=== PATIENT | female | born 1995 ===

== ENCOUNTER 2022-09-26 14:30 | Outpatient (CLI) | payer OTHER, SELFPAY | END 2022-09-26 14:31 | disposition home or self-care (01) | LOC: NFLDREF 14:31 | PROVIDERS: PCP Obstetrics & Gynecology; Visit Provider Obstetrics & Gynecology | DX: R30.0 Dysuria (principal); E11.9 Type 2 diabetes mellitus without complications | CPT/HCPCS: 87086; 87210 ==

== ENCOUNTER 2022-10-10 11:35 | Outpatient (CLI) | payer OTHER, SELFPAY | END 2022-10-10 11:36 | disposition home or self-care (01) | LOC: NFLDREF 10-12 06:28 | PROVIDERS: PCP Obstetrics & Gynecology; Referring Provider Obstetrics & Gynecology; Visit Provider Obstetrics & Gynecology | DX: O24.112 Pre-existing type 2 diabetes mellitus, in pregnancy, second trimester (principal); R79.89 Other specified abnormal findings of blood chemistry; Z3A.15 15 weeks gestation of pregnancy | CPT/HCPCS: 82565; 82570; 84156; 84450; 84460; 84520 ==

== ENCOUNTER 2023-01-16 15:47 | Outpatient (CLI) | payer OTHER, SELFPAY | END 2023-01-16 15:48 | disposition home or self-care (01) | PROVIDERS: PCP Obstetrics & Gynecology; Referring Provider Obstetrics & Gynecology; Visit Provider Obstetrics & Gynecology | DX: O24.113 Pre-existing type 2 diabetes mellitus, in pregnancy, third trimester (principal); Z3A.29 29 weeks gestation of pregnancy | CPT/HCPCS: 86592 ==

== ENCOUNTER 2023-01-29 14:00 | Outpatient (CLI) | payer OTHER, SELFPAY ==
--- NOTE | 2023-01-29 14:00 | CRLHL7_ITS ---
For Patients: As a result of the Century Cures Act, medical imaging exams and procedure reports are released immediately into your electronic medical record. You may view this report before your referring provider. If you have questions, please contact your health care provider. INDICATION: pre-existing type 2 diabetes TECHNIQUE: Real time forbes scale imaging of the fetus was performed. COMPARISON: None FINDINGS: Sonographic imaging demonstrates a single living intrauterine gestation. Fetus demonstrates a regular cardiac rate of 167 beats per minute. Fetus has a vertex position. The placenta lies posterior. Amniotic fluid volume appears normal and there is a single deepest pocket of 5.2 cm. The estimated weight is 1947gm which lies at the 73rd %. BPD 63rd percentile. HC 62nd percentile. AC 97th percentile. FL 4th percentile. The fetus was active and demonstrated normal breathing movements. There was normal flexion and extension of the trunk and extremities. IMPRESSION: Normal biophysical profile score 8/8. Sonographic gestational age 32 weeks 1 day and sonographic due date 03/25/2023. Sonographic age is 6 days ahead of the clinical age. Estimated weight 73rd percentile. Abdominal circumference 97th percentile. Dictated by Sloan Gonsalves MD @ 01/30/2023 5:01:52 PM (Electronically Signed)
== END 2023-01-29 14:01 | disposition home or self-care (01) ==
LOC: US 14:01
PROVIDERS: Visit Provider Obstetrics & Gynecology
DX: O24.113 Pre-existing type 2 diabetes mellitus, in pregnancy, third trimester (principal); Z3A.31 31 weeks gestation of pregnancy
CPT/HCPCS: 76816; 76819

== ENCOUNTER 2023-02-13 14:46 | Outpatient (CLI) | payer OTHER, SELFPAY ==
--- NOTE | 2023-02-13 15:00 | CRLHL7_ITS ---
For Patients: As a result of the Century Cures Act, medical imaging exams and procedure reports are released immediately into your electronic medical record. You may view this report before your referring provider. If you have questions, please contact your health care provider. INDICATION: PRE-EXISTING TYPE 2 DIABETES MELLITUS COMPARISON: 01/29/2023 TECHNIQUE: Real time forbes scale imaging of the fetus was performed. Without non-stress testing. FINDINGS: Sonographic imaging demonstrates a single living intrauterine gestation. Fetus demonstrates a regular cardiac rate of 166 beats per minute. Fetus has a vertex position. The amniotic fluid volume appears normal and there is a single deepest pocket measurement of 5.5 cm. The fetus was active and demonstrated normal breathing movements. There was normal flexion and extension of the trunk and extremities. IMPRESSION: Normal biophysical profile score of 8 out of 8. Dictated by Sloan Gonsalves MD @ 02/14/2023 9:06:44 AM (Electronically Signed)
== END 2023-02-13 14:47 | disposition home or self-care (01) ==
LOC: US 14:47
PROVIDERS: Visit Provider Obstetrics & Gynecology
DX: O24.113 Pre-existing type 2 diabetes mellitus, in pregnancy, third trimester (principal)
CPT/HCPCS: 76819

== ENCOUNTER 2023-02-22 14:44 | Outpatient (CLI) | payer OTHER, SELFPAY ==
--- NOTE | 2023-02-22 15:00 | CRLHL7_ITS ---
For Patients: As a result of the Cures Act, medical imaging exams and procedure reports are released immediately into your electronic medical record. You may view this report before your referring provider. If you have questions, please contact your health care provider. INDICATION: Pre-existing type 2 diabetes. COMPARISON: OB ultrasound 02/13/2023. TECHNIQUE: Ultrasound OB pelvis with real time forbes scale imaging and color Doppler analysis. FINDINGS: Sonographic imaging demonstrates a single living intrauterine gestation. The fetus has a regular cardiac rate of 139 beats per minute. The fetus has a cephalic orientation. The placenta lies posterior/fundal without evidence of placenta previa. Amniotic fluid volume appears normal. Cervix not visualized. The composite ultrasound gestational age is calculated at 35 weeks 3 days with an estimated sonographic due date of 03/26/2023. The estimated weight is 2899 grams which lies at the 87th percentile. The following biometric measurements were obtained: Biparietal diameter: 8.72 cm (35 weeks 1 day) (66th percentile) Head circumference: 32.11 cm (36 weeks 2 days) (54th percentile) Abdominal circumference: 34.67 cm (38 weeks 4 days) (greater than 97th percentile) Femur length: 6.04 cm (31 weeks 3 days) (less than 3rd percentile) The HC/AC ratio measures: 0.93 (range 0.93-1.10) BIOPHYSICAL PROFILE: Single deepest pocket measures 5.7 cm (2/2). The fetus was active (2/2). There was normal flexion and extension of the trunk and extremities (2/2). The fetus demonstrated normal breathing movements (2/2). IMPRESSION: 1. Single living intrauterine gestation in cephalic position with heart rate 139 beats per minute. 2. Ultrasound gestational age 35 weeks 3 days with sonographic due date 03/26/2023. The clinical gestational age is 34 weeks 5 days. 3. Estimated weight lies at the 87th percentile. Abdominal circumference is greater than 97th percentile. 4. Normal biophysical profile score 8 out of 8. Dictated by Bernadette Miranda MD @ 02/22/2023 11:13:12 PM (Electronically Signed)
== END 2023-02-22 14:45 | disposition home or self-care (01) ==
PROVIDERS: Visit Provider Obstetrics & Gynecology
DX: O24.113 Pre-existing type 2 diabetes mellitus, in pregnancy, third trimester (principal); Z3A.35 35 weeks gestation of pregnancy
CPT/HCPCS: 76816; 76819

== ENCOUNTER 2023-02-27 15:52 | Outpatient (CLI) | payer OTHER, SELFPAY ==
--- NOTE | 2023-02-27 16:00 | CRLHL7_ITS ---
For Patients: As a result of the Century Cures Act, medical imaging exams and procedure reports are released immediately into your electronic medical record. You may view this report before your referring provider. If you have questions, please contact your health care provider. INDICATION: TYPE 2 DIABETES COMPARISON: 02/22/2023 TECHNIQUE: Real time forbes scale imaging of the fetus was performed. Without non-stress testing. FINDINGS: Sonographic imaging demonstrates a single living intrauterine gestation. Fetus demonstrates a regular cardiac rate of 152 beats per minute. Fetus has a vertex position. The amniotic fluid volume appears normal and there is a single deepest pocket measurement of 5.0 cm. The fetus was active and demonstrated normal breathing movements. There was normal flexion and extension of the trunk and extremities. IMPRESSION: Normal biophysical profile score of 8 out of 8. Dictated by Sloan Gonsalves MD @ 02/28/2023 8:42:19 AM (Electronically Signed)
== END 2023-02-27 15:53 | disposition home or self-care (01) ==
LOC: US 15:52
PROVIDERS: Visit Provider Obstetrics & Gynecology
DX: O24.419 Gestational diabetes mellitus in pregnancy, unspecified control (principal)
CPT/HCPCS: 76819

== ENCOUNTER 2023-03-08 13:55 | Outpatient (CLI) | payer OTHER, SELFPAY ==
--- NOTE | 2023-03-08 14:00 | CRLHL7_ITS ---
For Patients: As a result of the Century Cures Act, medical imaging exams and procedure reports are released immediately into your electronic medical record. You may view this report before your referring provider. If you have questions, please contact your health care provider. INDICATION: pre-existing type 2 diabetes TECHNIQUE: Real time forbes scale imaging of the fetus was performed. COMPARISON: 02/22/2023, 02/27/2023 FINDINGS: Sonographic imaging demonstrates a single living intrauterine gestation. Fetus demonstrates a regular cardiac rate of 125 beats per minute. Fetus has a vertex position. The placenta lies fundal posterior. Amniotic fluid volume appears normal and there is a single deepest pocket of 4.7 cm. The estimated weight is 3186gm which lies at the 72nd %. On the prior OB ultrasound dated 02/22/2023 the estimated weight was at the 87th percentile. BPD 54th percentile. HC 25th percentile. AC greater than 97th percentile. FL less than 3rd percentile. The fetus was active and demonstrated normal breathing movements. There was normal flexion and extension of the trunk and extremities. IMPRESSION: Normal biophysical profile score 8/8. Sonographic gestational age 36 weeks 4 days and sonographic due date 04/01/2023. Good correlation with dates. Normal interval growth. Estimated weight 72nd percentile. Abdominal circumference greater than 97th percentile. Femur length less than 3rd percentile. This was also present on the prior study. Dictated by Sloan Gonsalves MD @ 03/09/2023 9:27:30 AM (Electronically Signed)
== END 2023-03-08 13:56 | disposition home or self-care (01) ==
LOC: US 13:55
PROVIDERS: Visit Provider Obstetrics & Gynecology
DX: O24.419 Gestational diabetes mellitus in pregnancy, unspecified control (principal); Z3A.36 36 weeks gestation of pregnancy
CPT/HCPCS: 76816; 76819; 87081; 87653

== ENCOUNTER 2023-04-08 15:45 | Emergency (ER) | payer OTHER, SELFPAY ==
[2023-04-08 15:56] VITALS: BP 107/68; PULSE 74; RESP 18; TEMP 36.6; O2SAT 100; BMI 34.2
[2023-04-08 16:34] LABS: Basophils Absolute Auto 0.05 K/uL (0.00-0.30); Basophils Percent Auto 0.7 % (0.0-3.0); Eosinophils Absolute Auto 0.27 K/uL (0.00-0.50); Hematocrit 39.4 % (33.0-51.0); Hemoglobin* 12.2 gm/dL (12.0-16.0); Immature Granulocytes Abs Auto 0.01 K/uL (0.00-0.30); Immature Granulocytes Pct Auto 0.1 %; Lymphocytes Absolute Auto 1.91 K/uL (0.90-2.90); Lymphocytes Percent Auto 28.6 % (20-44); Mean Corpuscular HGB Conc 31 gm/dL (32-36); Mean Corpuscular Hemoglobin 22 pg (26-34); Mean Corpuscular Volume 72 fL (80-100); Neutrophils Absolute Auto 4.17 K/uL (1.7-7.0); Neutrophils Percent Auto 62.6 % (42.0-72.0); Platelet Count* 314 K/uL (140-440); RDW Coefficient of Variation % 16.3 % (11.5-15.5); Red Blood Count 5.45 m/uL (4.00-5.20); White Blood Count* 6.68 K/uL (4.50-11.00)
[2023-04-08 16:37] LABS: Slide Review Reflex No
--- NOTE | 2023-04-08 16:41 | ED.GENADULT ---
HPI - General Adult General Date Seen: 04/08/23 Chief complaint: Post OB/Post- Complication Stated complaint: Discharge/redness at site(2 wks ago) Time Seen by Provider: 04/08/23 16:00 Source: patient Mode of arrival: ambulatory Limitations: no limitations History of Present Illness HPI narrative: Patient is a 27-year-old female presenting to the emergency department for concerns for her incision. She states she has 2 weeks ago at [facility]. States her doctors all usually in [place] though. She states she noted today she had a small amount of discharge coming from the surgical site. She was concerned so came to the emergency department to be evaluated. She states she has had some chills and cold sweats but denies any fevers. Has not had any abdominal pain or nausea. Has been eating and drinking without issues. Denies dysuria, weakness, numbness, chest pain, shortness of breath, vaginal pain. Does state there is some mild vaginal bleeding. No other concerns at this time. Related Data Home Medications Medication Instructions Recorded Confirmed cholecalciferol (vitamin D3) 25 25 mcg PO QDAY 09/26/22 03/08/23 mcg (1,000 unit) capsule prenat.vits,livan,[id number] 1 tab PO QDAY 09/26/22 03/08/23 insulin aspart U-100 100 unit/mL 0.25 unit subcut TID 10/30/22 03/08/23 subcutaneous solution (Novolog U-100 Insulin aspart) insulin glargine 100 unit/mL 30 unit subcut QPM 10/30/22 03/08/23 subcutaneous solution (Lantus U-100 Insulin) aspirin 81 mg tablet,delayed 81 mg PO QDAY 12/28/22 03/08/23 release Previous Rx's Medication Instructions Recorded cephalexin 500 mg capsule 500 mg PO QID #20 caps 04/08/23 Allergies Allergy/AdvReac Type Severity Reaction Status Date / Time No Known Drug Allergies Allergy Verified 03/08/23 14:50 Review of Systems Status of ROS: Reports: 10 or more systems reviewed and unremarkable except as noted in History and below [facility] Medical History (Updated 04/08/23 @ 17:39 by Fede Bravo DO) Type 2 diabetes mellitus affecting in third trimester, antepartum ?O24.113 - Pre-existing type 2 diabetes mellitus, in , third trimester (ICD-10) Carpal tunnel syndrome (04/07/21) ?G56.00 - Carpal tunnel syndrome, unspecified upper limb (ICD-10) History of depression ?Z86.59 - Personal history of other mental and behavioral disorders (ICD-10) History of anxiety ?Z86.59 - Personal history of other mental and behavioral disorders (ICD-10) History of abnormal cervical Pap smear (04/28/20) ?Z87.42 - Personal history of other diseases of the female genital tract (ICD-10) Mild asthma ?J45.909 - Unspecified asthma, uncomplicated (ICD-10) Oligohydramnios (~04/2021) ?O41.00X0 - Oligohydramnios, unspecified trimester, not applicable or unspecified (ICD-10) Surgical History (Updated 09/25/22 @ 08:32 by Vivienne Bah) History of wisdom tooth extraction ?K08.409 - Partial loss of teeth, unspecified cause, unspecified class (ICD-10) Status post primary low transverse section (05/17/21) ?Z98.891 - History of uterine scar from previous surgery (ICD-10) Social History Smoking Status: Never smoker Little interest or pleasure in doing things: not at all Feeling down, depressed, or hopeless: not at all Exam Narrative: Exam Narrative: Const: Well-nourished, Well-developed, in no distress Eyes: PERRL, no conjunctival injection, and symmetrical lids ENMT: Atraumatic external nose and ears. Moist mucous membranes. Neck: Symmetric, trachea midline, No thyromegaly. CVS: RRR, No murmurs or gallops. Peripheral pulses 2+ and equal in all extremities RESP: Unlabored respiratory effort. Clear to auscultation bilaterally. GI: Nontender/Nondistended, No rebound or guarding. MSK:Extremities w/o deformity, Normal Active ROM Skin: Warm, Dry. Healing surgical site with is some noted the openings vault couple mm in size each addendum mid section of the scar an on the right edge. Neuro: Normal Muscle tone, No focal neurological deficits. Psych: Awake, Alert, & Oriented x3. Appropriate mood and affect. Const: Vital Signs, click to edit/add: Vital Signs - 24 hr 04/08/23 15:56 Temperature 97.8 F Pulse Rate [Pulse Oximeter] 74 Respiratory Rate 18 Blood Pressure [Ri ght Upper Arm] 107/68 Pulse Oximetry 100 Course Vital Signs Vital signs: Initial Vital Signs Temperature 97.8 F 04/08/23 15:56 Temperature Source Temporal Artery Scan 04/08/23 15:56 Pulse Rate 74 04/08/23 15:56 Respiratory Rate 18 04/08/23 15:56 Blood Pressure 107/68 04/08/23 15:56 Blood Pressure Mean 81 04/08/23 15:56 Pulse Oximetry 100 04/08/23 15:56 Vital Signs Temperature 97.8 F 04/08/23 15:56 Pulse Rate 74 04/08/23 15:56 Respiratory Rate 18 04/08/23 15:56 Blood Pressure 107/68 04/08/23 15:56 Pulse Oximetry 100 04/08/23 15:56 Temperature 97.8 F 04/08/23 15:56 Pulse Rate 74 04/08/23 15:56 Respiratory Rate 18 04/08/23 15:56 Blood Pressure 107/68 04/08/23 15:56 Pulse Oximetry 100 04/08/23 15:56 Medical Decision Making MDM Narrative Medical decision making narrative: Patient is a 27-year-old female presented emergency department for a wound check. She did state she has some night sweats but no other complaints at this time. I specifically asked about abdominal pain, nausea, dysuria. She denied all of this. She states she wants an OB to come in to a wound check on her. She has not had her 2 week wound check appointment yet. I ordered a CBC and BMP in the returned showing no concerning abnormalities. She had only a very small opening in the wound with very minimal drainage. I do not see any drainage right now. I did speak to Dr. Sorenson and explained the situation. I stated they are small wounds and there is no obvious signs of infection occurring right now. She states she would come and evaluate the wound if I wanted her to the she states otherwise the patient needs to have her 2 week outpatient wound check appointment this week. This time and not believe this any clear signs of infection and I am not was necessary to have her come in to evaluate the wound. Patient is otherwise doing well with stable vital signs. After this I went disorder the patient again explained her to follow up outpatient. This point she started saying she is having abdominal pains throughout the incision sites and dysuria. We did do urinalysis. While urinalysis pending patient and her family left and she told the nursing staff that I can call her with the results. Results came back showing possibly a UTI. I did send Keflex to her pharmacy and try to call the patient but her number on file is incorrect and her did not answer the phone. I was later able to get a hold of the patient and informed her of her UTI prescription Lab Data Labs: Lab Results 04/08/23 04/08/23 Range/Units 16:27 16:51 WBC 6.68 (4.50-11.00) K/uL RBC 5.45 H (4.00-5.20) m/uL Hgb 12.2 (12.0-16.0) gm/dL Hct 39.4 (33.0-51.0) % MCV 72 L (80-100) fL MCH 22 L (26-34) pg MCHC 31 L (32-36) gm/dL RDW Coeff of Rusty 16.3 H (11.5-15.5) % Plt Count 314 (140-440) K/uL Neut % (Auto) 62.6 (42.0-72.0) % Lymph % (Auto) 28.6 (20-44) % Valley % (Auto) 4.0 (0.0-11.0) % Eos % (Auto) 4.0 (0.0-7.0) % Baso % (Auto) 0.7 (0.0-3.0) % Neut # (Auto) 4.17 (1.7-7.0) K/uL Lymph # (Auto) 1.91 (0.90-2.90) K/uL Valley # (Auto) 0.30 (0.00-0.90) K/UL Eos # (Auto) 0.27 (0.00-0.50) K/uL Baso # (Auto) 0.05 (0.00-0.30) K/uL Abs Immat Gran (auto) 0.01 (0.00-0.30) K/uL Imm/Tot Granulo (auto) 0.1 % Sodium 138 (135-149) mmol/L Potassium 3.7 (3.6-5.1) mmol/L Chloride 108 (96-114) mmol/L Carbon Dioxide 19 L (20-32) mmol/L Anion Gap 11 (7-15) mEq/L BUN 19 (5-24) mg/dL Creatinine 0.8 (0.5-1.5) mg/dL Estimated Creat Clear 74.53 Estimated GFR 102 ml/min Glucose 112 (60-115) mg/dL Calcium 9.3 (8.4-10.6) mg/dL Urine Color Yellow (Yellow) Urine Appearance Clear (Clear) Urine pH 5.5 (5.0-8.5) Ur Specific [place] 1.025 (1.000-1.030) Urine Protein Negative (Negative) Urine Glucose (UA) Negative (Negative) Urine Ketones Negative (Negative) Urine Blood 3+ A (Negative) Urine Nitrite Negative (Negative) Urine Bilirubin Negative (Negative) Urine Urobilinogen 0.2 (0.2-1.0) Ur Leukocyte Esterase 1+ A (Negative) Urine RBC 5-10 A (0-2) Urine WBC 5-10 A (0-5) Ur Squamous Epith Cells None (None-Few) Urine Bacteria None (None) Discharge Plan Discharge Clinical Impression: Visit for wound check UTI (urinary tract infection) Qualifiers: Urinary tract infection type: site unspecified Hematuria presence: without hematuria Qualified Code(s): N39.0 - Urinary tract infection, site not specified Patient Disposition: Home, Self-Care Condition: Stable Instructions: Urinary Tract Infection in Women (DC) Additional Instructions: Return for new or worsening symptoms. Prescriptions: New cephalexin 500 mg capsule 500 mg PO QID Qty: 20 0RF No Action prenat.vits,livan,oit-yrzt-pgboy Tablet 1 tab PO QDAY cholecalciferol (vitamin D3) 25 mcg (1,000 unit) capsule 25 mcg PO QDAY insulin aspart U-100 [Novolog U-100 Insulin aspart] 100 unit/mL solution 0.25 unit subcut TID Patient Comments: patient reports taking 20-25 units at meals. insulin glargine [Lantus U-100 Insulin] 100 unit/mL solution 30 unit subcut QPM Patient Comments: patient reports 25-30 units at HS. aspirin 81 mg tablet,delayed release (DR/EC) 81 mg PO QDAY Follow Up/Referrals: Provider,Not a Local [Primary Care Provider] - Stand Alone Forms: [employer] Info Instructions
[2023-04-08 17:00] LABS: Chloride* 108 mmol/L (96-114); Potassium* 3.7 mmol/L (3.6-5.1); Sodium* 138 mmol/L (135-149)
[2023-04-08 17:03] LABS: Anion Gap 11 mEq/L (7-15); Blood Urea Nitrogen* 19 mg/dL (5-24); Carbon Dioxide* 19 mmol/L (20-32); Creatinine* 0.8 mg/dL (0.5-1.5); Est. Creatinine Clearance* 74.53; Estimated Glomerular Filt Rate 102 ml/min
[2023-04-08 17:04] LABS: Calcium* 9.3 mg/dL (8.4-10.6); Glucose* 112 mg/dL (60-115)
[2023-04-08 17:13] LABS: Appearance Urine Clear (Clear); Bilirubin Urine Negative (Negative); Blood Urine 3+ (Negative); Color Urine Yellow (Yellow); Glucose Urine Negative (Negative); Ketones Urine Negative (Negative); Leukocyte Esterase Urine 1+ (Negative); Nitrite Urine Negative (Negative); Protein Urine Negative (Negative); Specific Gravity Urine 1.025 (1.000-1.030); Urobilinogen Urine 0.2 (0.2-1.0); pH Urine 5.5 (5.0-8.5)
--- NOTE | 2023-04-08 17:28 | ED.NURSE ---
Pt was seen today for concerns of a possible infection at her site. was completed 2 weeks ago per patient. Bloodwork was ordered which the provider discussed with the patient. Pt requested several times that OB come and take a look at the incision. Conversation with patient regarding what services are provided in the ED for a concern for infection of the skin and that OB was not necessarily warranted. Per provider pt now stating that she is having concerns of a UTI and reporting symptoms. Urine was collected and sent to lab. Patient advised that the soonest this test would result would be 15 minutes. Patient and family walked out of ER and into lobby to leave. Advised patient that she had not yet received discharge paperwork and asked if she wanted to sign out AMA. Pt states that she would like the doctor to call her with results and send a prescription to her preferred pharmacy. This RN had a discussion with the provider and determined that he would call her with results since she needed to leave. I advised patient of this plan and also advised her that she could call here in 45 minutes if she had not received a call with results. Patient and significant other were understanding of this information.
--- NOTE | 2023-04-08 17:55 | ED.NURSE ---
Provider contacted patient at 1753 hours and advised her of a possible UTI. Advised that he sent a prescription to her pharmacy. Pt stated verbal understanding of this information. This RN witnessed the phone call.
== END 2023-04-08 17:56 | disposition home or self-care (01) ==
PROVIDERS: Emergency Provider Student in an Organized Health Care Education/Training Program
DX: N39.0 Urinary tract infection, site not specified (principal); Z48.00 Encounter for change or removal of nonsurgical wound dressing
CPT/HCPCS: 36415; 80048; 81001; 85025; 87086; 99283

== ENCOUNTER 2024-07-28 14:03 | Emergency (ER) | payer BC, SELFPAY ==
--- OUTSIDE RECORDS SUMMARY | 2024-07-28 14:05 | XMS_ITS | Encounter Summary ---
Author Organization [facility] Address [address] [place] [id number] Care Team Providers Care Greenskeeper Name Role Phone Letty Crowley MD Primary Care Provider + No Ref-Primary, Physician Unavailable [phone] Concha Klein PA-C Unavailable Eliza Blackman DO Unavailable [phone] Encounter Details Date Type Department Care Team (Latest Contact Info) Description 07/28/2024 Travel Social History Tobacco Use Types Packs/Day Years Used Date Smoking Tobacco: Never Smokeless Tobacco: Never Alcohol Use Standard Drinks/Week Comments Not Currently 0 (1 standard drink = 0.6 oz pur e alcohol) PHQ-2 Answer Date Recorded PHQ-2 Score 1 05/09/2023 Gilbert Depression Scale Answer Date Recorded Last EPDS Total Score Not on file 03/26/2023 The thought of harming myself has occurred to me . Never 03/26/2023 Adolescent Education Answer Date Record ed Getting School Help Needed Not on file 04/14 Comments No Sex and Gender Information Value Date Recorded Sex Assigned at Not on file Legal Sex Female 12:06 AM CDT Gender Identity Not on file Sexual Orientation Not on file Occupation Industry Job Start Date Job End Date not working Not on file Not on file Not on file documented as of this encounter Plan of Treatment Not on file documented as of this encounter Visit Diagnoses Not on filedocumented in this encounter Additional Health Concerns Assessment Noted Time PHQ-9 Depression Total Score: 7 05/09/20 23 4:15 PM CDT documented as of this encounter Care Teams Greenskeeper Relationship Specialty Start Date End Date Letty Crowley MD [facility] [address] [place] [address] PCP - General manager of information 01/13/21 No Ref-Primary, Physician 01/13/21 Concha Klein PA-C [address] [place] [id number] Physician Stock Letterer Endocrinology, Diabetes, and Metabolism 10/10/22 Eliza Blackman DO [address] [address] Assigned OBGYN Provider 04/14/23 documented as of this encounter
--- OUTSIDE RECORDS SUMMARY | 2024-07-28 14:05 | XMS_ITS | Referral Summary ---
Author Organization [place] Address [address] [place] [address] Care Team Providers Care Gate Watchman Name Role Phone Letty Crowley MD Primary Care Provider + No Ref-Primary, Physician Unavailable Concha Klein PA-C Unavailable Eliza Blackman DO Unavailable [phone] Encounters Date Type Department Care Team Description 07/28/2024 Travel 07/28/2024 Telephone [facility] [place] [address] [place] [id number] Eliza Blackman DO Vaginal Bleeding from Last 3 Months Allergies Active Allergy Reactions Criticality Noted Date Comments Cat Hair Extract Itching Low 11/03/2020 Glycerin Rash Low 09/26/2022 Unsure if this is correct- rash from Pantene shampoo Medications cholecalciferol (VITAMIN D3) 25 mcg (1000 units) capsule 3 Active Vit-Fe Fumarate-FA ( 1+1 OR) Active nystatin (MYCOSTATIN) 945889 UNIT/GM external creamIndication s:Yeast infection of the skin Apply topically 2 times daily 70 g 1 3 Active sertraline (ZOLOFT) 25 MG tabletIndicatio ns:Anxiety Take 1 tablet (25 mg) by mouth daily 90 tablet 3 3 Active Active Problems Problem Noted Date Diagnosed Date Class 2 severe obesity due t o excess calories with serious comorbidity in adult 05/09/2023 Indication for care in labor or delivery 023 Fatty liver 03/23/2019 2022 Diabetes mellitus 03/23/2019 Low vitamin D level 03/21/2018 2022 LTBI (latent tuberculosis infection) 01/03/2016 2022 Resolved Problems Problem Noted Date Diagnosed Date Resolved Date Pregestational diabetes chadd itus, modified White class B 03/23/2023 03/25/2023 Excessive growth affec ting management of in third trimester 03/23/2023 03/25/20 23 Oligohydramnios 2022 2022 03/23/2023 Diabetes mellitus during pre gnancy treated with insulin 08/25/2022 2022 03/25/2023 Overview (2022): Last Assessment & Plan: Labs today Follow up with surgery aide team to help with insulin dose adjustment, by next week. Follow up with me in 1 month (clinic / video / telephone) Previous delivery a ffecting 08/15/2022 2022 03/25/2023 Immunizations Name Administration Dates Next Due DTAP (<7y) 11/20/1998, 6,06/11/1994,1993,01/23/1994 HEPATITIS A (PEDS 12M-18Y) 09/28/2010 HPV Quadrivalent 02/13/2013,10/31/2012 HPV9 03/10/2016,02/13/2013,09/30/2012 HepB, Unspecified 06/11/1994,03/31/1994,01/23/19 94 Hepatitis B, Peds 06/11/1994,03/31/1994,01/23/19 94 Influenza (H1N1) 07/28/2009 Influenza (IIV3) PF 05/26/2013,06/28/2010,2009 Influenza Vaccine >6 months,quad, PF ,04/28/2020,04/08/2019,2017,06/07/2016 MMR 04/07/2000,01/24/1996 Polio, Unspecified 06/11/1994,03/31/1994, 994 TDAP (Adacel,Boostrix) 01/16/2023,2020,02/18/2019,2007 Td (Adult), Adsorbed 03/18/2009 Social History Tobacco Use Types Packs/Day Years Used Date Smoking Tobacco: Never Smokeless Tobacco: Never Tobacco Cessation:Counseling Given: No Alcohol Use Standard Drinks/Week Comments Not Currently 0 (1 standard drink = 0.6 oz pur e alcohol) PHQ-2 Answer Date Recorded PHQ-2 Score 1 05/09/2023 [place] Depression Scale Answer Date Recorded Last EPDS [...] file Not on file Not on file Last Filed Vital Signs Vital Sign Reading Time Taken Comments Blood Pressure 130/70 02/06/2024 9:00 PM CDT Pulse 75 02/06/2024 9:00 PM CDT Temperature 36.4 C (97.5 F) 02/06/2024 8:01 PM CDT Respiratory Rate 16 02/06/2024 8:01 PM CDT Oxygen Saturation 96% 02/06/2024 9:00 PM CDT Inhaled Oxygen Concentration - - Weight 81.4 kg (179 lb 7.3 oz) 02/06/2024 8:01 P M CDT Height 152.4 cm (5') 02/06/2024 8:01 PM CDT Body Mass Index 35.05 02/06/2024 8:01 PM CDT Plan of Treatment Not on file Procedures Procedure Name Priority Date/Time Associated Diagnosis Comments BASIC METABOLIC PANEL STAT 02/06/2024 8:44 PM CDT HEMOGLOBIN A1C Add-On 02/06/2024 8:44 PM CDT HIV 1&2 ANTIBODY (EXTERNAL RESULT) Routine 08/15/2022 9:00 AM ECHOCARDIOGRAPHY TECHNOLOGIST from Last 3 Months or Most Recently Relevant to Health Maintenance Results * (ABNORMAL) Hemoglobin A1c (02/06/2024 8:44 PM CDT) Hemoglobin A1C 9.8(H) <5.7 % 02/06/2024 10:18 PM CDT [facility] Comment: Normal <5.7% Prediabetes 5.7-6.4% Diabetes 6.5% or higher Note: Adopted from ADA consensus guidelines. Blood BLOOD SPECIMEN / Unknown Venipuncture / Unknown 02/06/2024 8:44 PM CDT 02/06/2024 8:48 PM CDT us Wayne Maza MD LAB - BLOOD ORDERABLES Final Result LABORATORY [facility] Acute Care Lab [address] Lab (1st floor, no room number) [place] [address] * (ABNORMAL) Basic metabolic panel (BMP) (02/06/2024 8:44 PM CDT) Sodium 130(L) 135 - 145 mmol/L 02/06/2024 9:17 PM CDT LABORATORY Potassium 4.0 3.4 - 5.3 mmol/L 02/06/2024 9:17 PM CDT LABORATORY Chloride 95(L) 98 - 107 mmol/L 02/06/2024 9:17 PM CDT LABORATORY Comment:Reviewed ok Carbon Dioxide (CO2) 19(L) 22 - 29 mmol/L 02/06/2024 9:17 PM CDT LABORATORY Anion Gap 16(H) 7 - 15 mmol/L 02/06/2024 9:17 PM CDT LABORATORY Urea Nitrogen 15.1 6.0 - 20.0 mg/dL 02/06/2024 9:17 PM CDT LABORATORY Creatinine 0.70 0.51 - 0.95 mg/dL 02/06/2024 9:17 PM CDT LABORATORY GFR Estimate >90 >60 mL/min/1.7 3m2 02/06/2024 9:17 PM CDT LABORATORY Comment:eGFR calculated usin g 2020 CKD-EPI equation. Calcium 9.2 8.8 - 10.4 mg/dL 02/06/2024 9:17 PM CDT [facility] Comment:Reference intervals for this test were updated on 02/05/2024 to reflect our healthy population more accurately. There may be differences in the flagging of prior results with similar values performed with this method. Those prior results can be interpreted in the context of the updated reference intervals. Glucose 472(H) 70 - 99 mg/dL 02/06/2024 9:17 PM CDT [facility] Blood BLOOD SPECIMEN / Unknown Venipuncture / Unknown 02/06/2024 8:44 PM CDT 02/06/2024 8:48 PM CDT Wayne Maza MD LAB - BLOOD ORDERABLES Final Result [facility] Acute Care Lab [address] [facility] Lab (1st floor, no room number) [place] [address] * HIV-1 Antibody (External Result) (08/15/2022 9:00 AM ECHOCARDIOGRAPHY TECHNOLOGIST) HIV 1&2 Antibody (External) Negative Nonreactive EXTERNAL LAB 08/15/2022 9:00 AM ECHOCARDIOGRAPHY TECHNOLOGIST Patient Reported LAB - HIM EXTERNAL RESULT Final Result EXTERNAL LAB External Lab from Last 3 Months or Most Recently Relevant to Health Maintenance Insurance [facility] WITH AETNA [facility] WITH [facility] Advance Directives For more information, please contact: [phone] * Full Code (Latest Code Status on File) Date Activated Date Inactivated Comments 03/25/2023 3:11 AM 03/26/2023 9:02 PM All basic and advanced life-sustaining interventions are performed as appropriate Question Answer Comments Code status determined by: Discussion with patie nt/ legal decision maker * Full Code Date Activated Date Inactivated Comments 03/23/2023 10:04 PM 03/25/2023 3:10 AM All basic and advanced life-sustaining interventions are performed as appropriate Question Answer Comments Code status determined by: Discussion with patie nt/ legal decision maker Care Teams Gate Watchman Relationship Specialty Start Date End Date Letty Crowley MD [facility] [address] [place] [address] PCP - General interface engineer 01/13/21 No Ref-Primary, Physician 01/13/21 Concha Klein PA-C [address] [place] [address] Physician Tire Balancer Endocrinology, Diabetes, and Metabolism 10/10/22 Eliza Blackman DO [address] [address] Assigned OBGYN Provider 04/14/23
--- OUTSIDE RECORDS SUMMARY | 2024-07-28 14:05 | XMS_ITS | Encounter Summary ---
Author Organization [place] Address [facility] [place] [address] Care Team Providers Care Professional Services Manager Name Role Phone Letty Crowley MD Primary Care Provider + No Ref-Primary, Physician Unavailable [phone] Concha Klein PA-C Unavailable Eliza Blackman DO Unavailable [phone] Reason for Visit * Reason Onset Date Comments Vaginal Bleeding 07/28/2024 Encounter Details Date Type Department Care Team (Late st Contact Info) Description 07/28/[address] [facility] [place] [address] [place] [address] Eliza Blackman DO [address] [place] [address] Vaginal Bleeding Social History Tobacco Use Types Packs/Day Years Used Date Smoking Tobacco: Never Smokeless Tobacco: Never Alcohol Use Standard Drinks/Week Comments Not Currently 0 (1 standard drink = 0.6 oz pur e alcohol) PHQ-2 Answer Date Recorded PHQ-2 Score 1 05/09/2023 [place] Depression Scale Answer Date Recorded Last EPDS [...] on file documented as of this encounter Miscellaneous Notes * Telephone Encounter - Eliza Blackman DO - 07/28/2024 11:00 AM CHAIRMAN EMERITUS Agree, RMAN EMERITUS * Telephone Encounter - Milagros Steward RN - 07/28/2024 10:22 AM CST Pt calls stating she was , but then vaginal bleeding started. LMP 06/19/24, 5w4d Vaginal bleeding started yesterday. Moderate to heavy, clots, cramping. Thinks she is likely having a miscarriage. Discussed doing HCG levels. She would like to do these to see how her levels look, ordered. She wants to use the walk in lab athospital today and Wed. Discussed that today's level is our baseline. Discussed reasons to go to ED. O Pos Milagros Davison PLATE STACKER HAND [place] mother baby rn RMAN EMERITUS documented in this encounter Plan of Treatment Scheduled Orders Name Type Priority Associated Diagnoses Orde r Schedule hCG Quantitative Lab STAT Bleeding in early 2 Occurrences starting 07/28/2024 until 07/28/2025 documented as of this encounter Visit Diagnoses Diagnosis Bleeding in early - Primary Unspecified hemorrhage in early , unspecified as to episode of care documented in this encounter Additional Health Concerns Assessment Noted Time PHQ-9 Depression Total Score: 7 05/09/20 23 4:15 PM CDT documented as of this encounter Care Teams Professional Services Manager Relationship Specialty Start Date End Date Letty Crowley MD [facility] [address] [place] [address] PCP - General divemaster 01/13/21 No Ref-Primary, Physician 01/13/21 Concha Klein PA-C [address] [place] [address] Physician Kitchen Designer Endocrinology, Diabetes, and Metabolism 10/10/22 Eliza Blackman DO [address] [address] Assigned OBGYN Provider 04/14/23 documented as of this encounter
--- OUTSIDE RECORDS SUMMARY | 2024-07-28 14:05 | XMS_ITS | Clinical Summary ---
Author Organization [place] Address [address] [place] [address] Care Team Providers Care Sweetbread Trimmer Name Role Phone Letty Crowley MD Primary Care Provider + No Ref-Primary, Physician Unavailable [phone] Concha Klein PA-C Unavailable Eliza Blackman DO Unavailable [phone] Allergies Active Allergy Reactions Criticality Noted Date Comments Cat Hair Extract Itching Low 11/03/2020 Glycerin Rash Low 09/26/2022 Unsure if this is correct- rash from Pantene shampoo Medications cholecalciferol (VITAMIN D3) 25 mcg (1000 units) capsule 3 Active Vit-Fe Fumarate-FA ( 1+1 OR) Active nystatin (MYCOSTATIN) 665699 UNIT/GM external creamIndication s:Yeast infection of the [...] & Plan: Labs today Follow up with military professional team to help with insulin dose adjustment, by next week. Follow up with me in 1 month (clinic / video / telephone) Previous delivery a ffecting 08/15/2022 2022 03/25/2023 Encounters Date Type Department Care Team Description 07/28/2024 Travel 07/28/2024 Telephone [facility] [address] [place] [address] Eliza Blackman, Vaginal Bleeding from Last 3 Months Immunizations Name Administration Dates Next Due DTAP (<7y) 11/20/1998, 6,06/11/1994,1993,01/23/1994 HEPATITIS A (PEDS 12M-18Y) 09/28/2010 HPV Quadrivalent 02/13/2013,10/31/2012 HPV9 03/10/2016,02/13/2013,09/30/2012 HepB, Unspecified 06/11/1994,03/31/1994,01/23/19 94 Hepatitis B, Peds 06/11/1994,03/31/1994,01/23/19 94 Influenza (H1N1) 07/28/2009 Influenza (IIV3) PF 05/26/2013,06/28/2010,2009 Influenza Vaccine >6 months,quad, PF ,04/28/2020,04/08/2019,2017,06/07/2016 MMR 04/07/2000,01/24/1996 Polio, Unspecified 06/11/1994,03/31/1994, 994 TDAP (Adacel,Boostrix) 01/16/2023,2020,02/18/2019,2007 Td (Adult), Adsorbed 03/18/2009 Family History Medical History Relation Comments No Known Problems Father No Known Problems Mother Relation Status Comments Father Mother Social History Tobacco Use Types Packs/Day Years Used Date Smoking Tobacco: Never Smokeless Tobacco: Never Tobacco Cessation:Counseling Given: No Alcohol Use Standard Drinks/Week Comments Not Currently 0 (1 standard drink = 0.6 oz pur e alcohol) PHQ-2 Answer Date Recorded PHQ-2 Score 1 05/09/2023 [place] Depression Scale Answer Date Recorded Last EPDS [...] 02/06/2024 8:01 PM CDT Plan of Treatment Health Maintenance Due Date Last Done Comments ADVANCE CARE PLANNING 1993 ANNUAL REVIEW OF HM ORDERS 1993 DIABETIC FOOT EXAM 1993 EYE EXAM 1993 LIPID 1993 MICROALBUMIN 1993 HEPATITIS C SCREENING 11/23/2011 Pneumococcal Vaccine: Pediatrics (0 to 5 Years) and At-Risk Patients (6 to 49 Years) (1 of 2 - PCV) 2012 YEARLY PREVENTIVE VISIT 04/28/2021 04/28/2020 COVID-19 Vaccine (1 - 2023- season) 2024 INFLUENZA VACCINE (#1) 2024 , 04/28/2020, 04/08/2019, Additional history exists A1C 05/08/2024 02/06/2024, 09/0 07/2022, 09/26/2022 PAP 07/01/2024 07/01/2021 PHQ-2 (once per calendar year) 2024 05/09/2023, 05/09/2023, 03/14/2023 BMP 02/05/2025 02/06/2024, 090 02/2023, 12/12/2020 DTAP/TDAP/TD IMMUNIZATION (11 - Td or Tdap) 01/16/2033 01/16/2023, 04/07/2021, 02/18/2019, Additional history exists RSV VACCINE (1 - 1-dose 75+ series) 2068 HEPATITIS B IMMUNIZATION Completed 994, 06/11/1994, 03/31/1994, Additional history exists HPV IMMUNIZATION Completed 03/10/2016, , 02/13/2013, Additional history exists HIV SCREENING Completed 08/15/2022 MENINGITIS IMMUNIZATION Aged Out No l onger eligible based on patient's age to complete this topic RSV MONOCLONAL ANTIBODY Aged Out No l onger eligible based on patient's age to complete this topic Procedures Procedure Name Priority Date/Time Associated Diagnosis Comments BASIC METABOLIC PANEL STAT 02/06/2024 8:44 PM CDT HEMOGLOBIN A1C Add-On 02/06/2024 8:44 PM CDT HIV 1&2 ANTIBODY (EXTERNAL RESULT) Routine 08/15/2022 9:00 AM INDUSTRIAL HYGIENIST from Last 3 Months or Most Recently [...] LAB - BLOOD ORDERABLES Final Result LABORATORY [facility] Acute Care Lab [address] [facility] Lab (1st floor, no room number) [place] [address] * (ABNORMAL) Basic metabolic panel (BMP) (02/06/2024 8:44 PM CDT) Sodium 130(L) 135 - 145 mmol/L 02/06/2024 9:17 PM CDT LABORATORY Potassium 4.0 3.4 - 5.3 mmol/L 02/06/2024 9:17 PM CDT LABORATORY Chloride 95(L) 98 - 107 mmol/L 02/06/2024 9:17 PM CDT [facility] Comment:Reviewed ok Carbon Dioxide (CO2) 19(L) 22 - 29 mmol/L 02/06/2024 9:17 PM CDT [facility] Anion Gap 16(H) 7 - 15 mmol/L 02/06/2024 9:17 PM CDT LABORATORY Urea Nitrogen 15.1 6.0 - 20.0 mg/dL 02/06/2024 9:17 PM CDT LABORATORY Creatinine 0.70 0.51 - 0.95 mg/dL 02/06/2024 9:17 PM CDT LABORATORY GFR Estimate >90 >60 mL/min/1.7 3m2 02/06/2024 9:17 PM CDT [facility] Comment:eGFR calculated usin 2020 CKD-EPI equation. Calcium 9.2 8.8 - [...] - BLOOD ORDERABLES Final Result [facility] Acute Care Lab [address] [facility] Lab (1st floor, no room number) [place] [address] * HIV-1 Antibody (External Result) (08/15/2022 9:00 AM INDUSTRIAL HYGIENIST) [facility] Signature HIV 1&2 Antibody (External) Negative Nonreactive EXTERNAL LAB 08/15/2022 9:00 AM INDUSTRIAL HYGIENIST us Patient Reported LAB - HIM EXTERNAL RESULT Final Result EXTERNAL LAB External Lab from Last 3 Months or Most Recently Relevant to Health Maintenance Insurance [facility] WITH AETNA [facility] WITH AETNA [facility] Advance Directives For more information, please contact: [phone] * Full Code (Latest Code Status on File) Date Activated Date Inactivated Comments 03/25/2023 3:11 AM 03/26/2023 9:02 PM All basic and advanced life-sustaining interventions are performed as appropriate Question Answer Comments Code status determined by: Discussion with manjite nt/ legal decision maker * Full Code Date Activated Date Inactivated Comments 03/23/2023 10:04 PM 03/25/2023 3:10 AM All basic and advanced life-sustaining interventions are performed as appropriate Question Answer Comments Code status determined by: Discussion with manjite nt/ legal decision maker Care Teams Sweetbread Trimmer Relationship Specialty Start Date End Date Letty Crowley MD [facility] [address] [place] [address] PCP - General technician automatic 01/13/21 No Ref-Primary, Physician 01/13/21 Concha Klein PA-C [address] [place] [address] Physician Granite Sandblaster Apprentice Endocrinology, Diabetes, and Metabolism 3/21/23 Eliza Blackman DO [address] [address] Assigned OBGYN Provider 04/14/23
--- OUTSIDE RECORDS SUMMARY | 2024-07-28 14:06 | XMS_ITS | Encounter Summary ---
Author Organization [place] Address [address] [place] [address] Care Team Providers Care Flatbed Press Operator Name Role Phone Letty Crowley MD Primary Care Provider + No Ref-Primary, Physician Unavailable [phone] Concha Klein PA-C Unavailable Eliza Blackman DO Unavailable [phone] Cesar Castro MD Unavailable [phone] Concha Klein PA-C Unavailable Encounter Details Date Type Department Care Team (Late st Contact Info) Description 2022 [facility] Adv[facility] [address] [place] [address] Hernan Carver Social History Tobacco Use Types Packs/Day Years Used Date Smoking Tobacco: Never Assessed Comments Yes Sex and Gender Information Value Date Recorded Sex Assigned at Not on file Legal Sex Female 12:06 AM CDT Gender Identity Not on file Sexual Orientation Not on file COVID-19 Exposure Response Date Recorded In the last 10 days, have yo u been in contact with someone who was confirmed or suspected to have Coronavirus/COVID-19? No / Unsure 11/14/2022 1:34 PM CDT documented as of this encounter Plan of Treatment Not on file documented as of this encounter Visit Diagnoses Not on filedocumented in this encounter Care Teams Flatbed Press Operator Relationship Specialty Start Date End Date Letty Crowley MD [address] [address] PCP - General shearing machine feeder 01/13/21 No Ref-Primary, Physician 01/13/21 Concha Klein PA-C [address] [place] [address] Physician News Internship Endocrinology, Diabetes, and Metabolism 10/10/22 Eliza Blackman DO [address] [facility] [address] [place] [address] Assigned OBGYN Provider 04/14/23 Cesar Castro MD [address] [facility] [address] [place] [address] Assigned OBGYN Provider 03/31/23 Concha Klein PA-C [address] [place] [address] Assigned Endocrinology Provider 08/24/23 06/13/24 documented as of this encounter
--- OUTSIDE RECORDS SUMMARY | 2024-07-28 14:06 | XMS_ITS | Encounter Summary ---
Author Organization [place] Address [address] [place] [address]. [place] [address] Care Team Providers Care Fisher Eel Name Role Phone Letty Crowley MD Primary Care Provider + No Ref-Primary, Physician Unavailable [phone] Concha Klein PA-C Unavailable Eliza Blackman DO Unavailable [phone] Cesar Castro MD Unavailable [phone] Concha Klein PA-C Unavailable Encounter Details Date Type Department Care Team (Late st Contact Info) Description 11/15/2022 [facility] Advice [facility] [address] [address] Kristy Renee LPN Social History Tobacco Use Types Packs/Day Years [...] on filedocumented in this encounter Care Teams Fisher Eel Relationship Specialty Start Date End Date Letty Crowley MD [address] [address] PCP - General office communication professor 01/13/21 No Ref-Primary, Physician 01/13/21 Concha Klein PA-C [address] [place] [address] Physician Electrical Tester Endocrinology, Diabetes, and Metabolism 10/10/22 Eliza Blackman DO [address] [address] Assigned OBGYN Provider 04/14/23 Cesar Castro MD [address] [address] Assigned OBGYN Provider 03/31/23 Concha Klein PA-C [address] [place] [address] Assigned Endocrinology Provider 08/24/23 06/13/24 documented as of this encounter
--- OUTSIDE RECORDS SUMMARY | 2024-07-28 14:06 | XMS_ITS | Encounter Summary ---
Author Organization [place] Address [address] [place] [address] Care Team Providers Care Glove Boarder Name Role Phone Letty Crowley MD Primary Care Provider + No Ref-Primary, Physician Unavailable [phone] Concha Klein PA-C Unavailable Eliza Blackman DO Unavailable [phone] Concha Klein PA-C Unavailable Reason for Visit * Reason Onset Date Comments Symptoms 05/18/2023 Rash by C sectio n scar Encounter Details Date Type Department Care Team (Late st Contact Info) Description 05/18/2023 Telephone [facility] [address] [place] [address] Eliza Blackman DO [address] [place] [address] Symptoms (Rash by C section scar) Social History Tobacco Use Types Packs/Day Years Used Date Smoking Tobacco: Never Smokeless Tobacco: Never Alcohol Use Standard Drinks/Week Comments Not Currently 0 (1 standard drink = 0.6 oz pur e alcohol) PHQ-2 Answer Date Recorded PHQ-2 Score 1 05/09/2023 [place] Depression Scale Answer Date Recorded Last EPDS [...] encounter Miscellaneous Notes * Telephone Encounter - Ramona Adkins RN - 05/21/2023 2:37 PM CDT See alternate TE dated 05/18/23. Ramona May RN * Telephone Encounter - Ramona Adkins RN - 05/18/2023 3:05 PM CDT Left message to call back on patient's cell phone number. Ramona May RN * Telephone Encounter - Kathy Gordillo - 05/18/2023 2:53 PM CDT [facility] Phone Message May a detailed message be left on voicemail: yes Reason for Call: Symptoms or Concerns If patient has red-flag symptoms, warm transfer to triage line Current symptom or concern: Rash by C section scar Symptoms have been present for: 2-3 day(s) Has patient previously been seen for this? No By : NA Date: NA Are there any new or worsening symptoms? Yes: New rash around C section scar Action Taken: Other: S Travel Screening: Not Applicable documented in this encounter Plan of Treatment Not on file documented as of this encounter Visit Diagnoses Not on filedocumented in this encounter Additional Health Concerns Assessment Noted Time PHQ-9 Depression Total Score: 7 05/09/20 4:15 PM CDT documented as of this encounter Care Teams Glove Boarder Relationship Specialty Start Date End [place] [address] PCP - General table lever operator 01/13/21 No Ref-Primary, Physician 01/13/21 Concha Klein PA-C [address] [place] [address] Physician Facing Baster Endocrinology, Diabetes, and Metabolism 10/10/22 Eliza Blackman DO [address] [place] [address] Assigned OBGYN Provider 04/14/23 Concha Klein PA-C [address] [place] [address] Assigned Endocrinology Provider 08/24/23 06/13/24 documented as of this encounter
--- OUTSIDE RECORDS SUMMARY | 2024-07-28 14:06 | XMS_ITS | Encounter Summary ---
Author Organization [facility] Address [address] [place] [address] Care Team Providers Care Sewer Cleaner Name Role Phone Letty Crowley MD Primary Care Provider + No Ref-Primary, Physician Unavailable [phone] Concha Klein PA-C Unavailable Eliza Blackman DO Unavailable [phone] Cesar Castro MD Unavailable [phone] Concha Klein PA-C Unavailable Encounter Details Date Type Department Care Team (Late st Contact Info) Description 03/21/2023 [facility] Medical Advice [facility] [address] [address] Shannan Argueta, [facility] Social History Tobacco Use Types Packs/Day Years Used Date Smoking Tobacco: Never Smokeless Tobacco: Never Alcohol Use Standard Drinks/Week Comments Not Currently 0 (1 standard drink = 0.6 oz pur e alcohol) PHQ-2 Answer Date Recorded PHQ-2 Score 0 03/14/2023 Comments Yes Sex and Gender Information Value Date Recorded Sex Assigned at Not on file Legal Sex Female 12:06 AM CDT Gender Identity Not on file Sexual Orientation Not on file Occupation Industry Job Start Date Job End Date not working Not on file Not on file Not on file COVID-19 Exposure Response Date Recorded In the last 10 days, have yo u been in contact with someone who was confirmed or suspected to have Coronavirus/COVID-19? No / Unsure 03/23/2023 11:31 AM CDT documented as of this encounter Plan of Treatment Not on file documented as of this encounter Visit Diagnoses Not on filedocumented in this encounter Care Teams Sewer Cleaner Relationship Specialty Start Date End Date Letty Catalan MD [address] [address] PCP - General pencil maker 01/13/21 No Ref-Primary, Physician 01/13/21 Concha Klein PA-C [address] [place] [address] Physician Torch Shearer Endocrinology, Diabetes, and Metabolism 10/10/22 Eliza Blackman DO [address] [address] Assigned OBGYN Provider 04/14/23 Cesar Csatro MD [address] [address] Assigned OBGYN Provider 03/31/23 Concha Klein PA-C [address] [place] [address] Assigned Endocrinology Provider 08/24/23 06/13/24 documented as of this encounter
--- OUTSIDE RECORDS SUMMARY | 2024-07-28 14:06 | XMS_ITS | Encounter Summary ---
Author Organization [facility] Address [address] [place] [address] Care Team Providers Care Wall Worker Name Role Phone Letty Crowley MD Primary Care Provider + No Ref-Primary, Physician Unavailable [phone] Concha Klein PA-C Unavailable Eliza Blackman DO Unavailable [phone] Cesar Castro MD Unavailable [phone] Concha Klein PA-C Unavailable Encounter Details Date Type Department Care Team (Late st Contact Info) Description 03/13/2023 [facility] [place] [facility] [address] [place] [address] Milagros Steward, RN Social History Tobacco Use Types Packs/Day Years Used Date Smoking Tobacco: Never Assessed PHQ-2 Answer Date Recorded PHQ-2 Score 0 [...] suspected to have Coronavirus/COVID-19? No / Unsure 03/16/2023 3:45 PM CDT documented as of this encounter Plan of Treatment Not on file documented as of this encounter Visit Diagnoses Not on filedocumented in this encounter Care Teams Wall Worker Relationship Specialty Start Date End Date Letty Crowley MD [facility] [address] [place] [address] PCP - General modeling agent 01/13/21 No Ref-Primary, Physician 01/13/21 Concha Klein PA-C [address] [place], [place] [address] Physician Forming Acid Dumper Endocrinology, Diabetes, and Metabolism 10/10/22 Eliza Blackman DO [address] [employer] [address] Assigned OBGYN Provider 04/14/23 Cesar Castro MD [address] [address] Assigned OBGYN Provider 03/31/23 Concha Klein PA-C [address] [place], [place] [address] Assigned Endocrinology Provider 08/24/23 06/13/24 documented as of this encounter
--- OUTSIDE RECORDS SUMMARY | 2024-07-28 14:06 | XMS_ITS | Clinical Summary ---
Author Organization [facility] Address [address] [place] [address] Care Team Providers Care Photographic Spotter Name Role Phone Unavailable Primary Care Provider Unavailabl e Source Comments You are receiving this document as you are listed as the primary care provider,follow-up provider, or the patient has been referred to you for consultation.This is in compliance with the Medicare and[facility] EHR Incentive Program,which states Providers who transition their patient to another setting of careor provider of care or refers their patient to another provider of care shouldprovide summary care record for each transition of care or referral. [facility] Allergies No known active allergies Medications Medication Sig Dispensed Refills Start Date End Date Status ONE TOUCH ULTRA MINI meterIndications:Pre- existing type 2 diabetes mellitus during in first trimester Use 1 Each to test 4 times a day. Use as directed. 1 Each 11/26/2020 Active blood glucose test stripIndications:Pre- existing type 2 diabetes mellitus during in first trimester Use 1 Each to test five times a day. 150 Strip 11 12/10/2020 Active Continuous Blood Gluc Sensor (FREESTYLE JAGUAR 2 SENSOR) MISCIndications:Well controlled type 2 diabetes mellitus (HRC) Use 1 sensor every 14 days 2 Each 11 07/29/2021 Active Social History Tobacco Use Types Packs/Day Years Used Date Smoking Tobacco: Never Smokeless Tobacco: Never Alcohol Use Standard Drinks/Week Comments Not Currently 0 (1 standard drink = 0.6 oz pur e alcohol) Sex and Gender Information Value Date Recorded Sex Assigned at Not on file Gender Identity Not on file Sexual Orientation Not on file Last Filed Vital Signs Vital Sign Reading Time Taken Comments Blood Pressure 117/62 04/02/2022 5:03 PM CDT Pulse 70 04/02/2022 5:03 PM CDT Temperature 36.9 C (98.4 F) 04/02/2022 5:03 PM CDT Respiratory Rate 14 04/02/2022 5:03 PM CDT Oxygen Saturation 100% 04/02/2022 5:03 PM CDT Inhaled Oxygen Concentration - - Weight - - Height - - Body Mass Index - - Plan of Treatment Health Maintenance Due Date Last Done Comments Cervical Cancer Screening Due 1993 Diabetes: Creatinine 1993 Diabetes: Foot Exam 1993 Diabetes: HGBA1C 1993 Diabetes: Lipid Panel 1993 Diabetes: Urine Microalbumin 1993 Hep C Screening (Preventive Services) 1993 Pneumococcal (1 - PCV) 11/23/1999 HIV Screening (Preventive Services) 2009 Adult Preventive Visit 11/23/2011 HepB (1) 2012 Diabetes: Eye Exam 03/11/2022 03/11/2021 COVID-19 Vaccine ( - 2023-2 5 season) 2024 Influenza (#1) 2024 05/19/2021, 04/28/2020 DTaP/Tdap/Td (3 - Tdap) 04/07/2031 04/07/20, 02/18/2019 Zoster/Shingles (1 of 2) 11/23/2043 HPV Vaccine Completed 03/10/2016, 02/13/2013, 09/30/2012 HepA Aged Out No longer eligi ble based on patient's age to complete this topic Hib Aged Out No longer eligi ble based on patient's age to complete this topic IPV (Polio) Aged Out No longer eligi ble based on patient's age to complete this topic MCV4 Aged Out No longer eligi ble based on patient's age to complete this topic Procedures Procedure Name Priority Date/Time Associated Diagnosis Comments JAMIA (DIABETIC EYE EXAM) 03/11/2021 from Last 3 Months or Most Recently Relevant to Health Maintenance Results * JAMIA (DIABETIC EYE EXAM) (03/11/2021) Interface Provider MD EDEN/OTHER/AR from Last 3 Months or Most Recently Relevant to Health Maintenance [id number] [place] [address]
--- OUTSIDE RECORDS SUMMARY | 2024-07-28 14:06 | XMS_ITS | Encounter Summary ---
Author Organization [facility] Address [address] [place] [address] Care Team Providers Care Rug Hooker Name Role Phone Letty Crowley MD Primary Care Provider + No Ref-Primary, Physician Unavailable [phone] Concha Klein PA-C Unavailable Eliza Blackman DO Unavailable [phone] Cesar Castro MD Unavailable [phone] Concha Klein PA-C Unavailable Encounter Details Date Type Department Care Team (Late st Contact Info) Description 04/09/2023 [facility] Medical Advice [facility] [address] [place] [address] Milagros Steward, RN Social History Tobacco Use Types Packs/Day Years Used Date Smoking Tobacco: Never Smokeless Tobacco: Never Alcohol Use Standard Drinks/Week Comments Not Currently 0 (1 standard drink = 0.6 oz pur e alcohol) PHQ-2 Answer Date Recorded PHQ-2 Score 0 03/14/2023 [place] Depression Scale Answer Date Recorded Last EPDS Total Score Not on file 03/26/2023 The thought of harming myself has occurred to me . Never 03/26/2023 Comments No Sex and Gender Information Value [...] suspected to have Coronavirus/COVID-19? No / Unsure 04/11/2023 3:11 PM CDT documented as of this encounter Plan of Treatment Not on file documented as of this encounter Visit Diagnoses Not on filedocumented in this encounter Care Teams Rug Hooker Relationship Specialty Start Date End Date Letty Crowley MD [facility] [address] [place] [address] PCP - General director of rehabilitation and wellness 01/13/21 No Ref-Primary, Physician 01/13/21 Concha Klein PA-C [address] [place] [address] Physician Herb Doctor Endocrinology, Diabetes, and Metabolism 10/10/22 Eliza Blackman DO [address] [address] Assigned OBGYN Provider 04/14/23 Cesar Castro MD [address] [address] Assigned OBGYN Provider 03/31/23 Concha Klein PA-C [address] [place] [address] Assigned Endocrinology Provider 08/24/23 06/13/24 documented as of this encounter
[2024-07-28 14:19] VITALS: BP 119/75; PULSE 61; RESP 18; TEMP 37.6; O2SAT 98
--- NOTE | 2024-07-28 14:31 | CRLHL7_ITS ---
For Patients: As a result of the Century Cures Act, medical imaging exams and procedure reports are released immediately into your electronic medical record. You may view this report before your referring provider. If you have questions, please contact your health care provider. Indication: Bleeding in early Technique: Real-time sonographic images of the pelvis were obtained transabdominally and transvaginally utilizing grayscale, color, and Doppler imaging. Comparison: None. Findings: Uterus: Appearance: section scar is seen anteriorly. Position: Anteverted. Endometrial stripe: 14 mm. Right ovary: Size: 2.8 x 1.6 x 1.9 cm. Appearance: Normal morphology. No masses. Left ovary: Not visualized. Free fluid: None. Impression: No intrauterine gestational sac is identified. Findings may be seen in setting of early , missed , or ectopic . Recommend follow-up with serial beta-hCG and/or ultrasound. Dictated by Vincent Adler MD @ 07/28/2024 3:31:10 PM (Electronically Signed)
--- NOTE | 2024-07-28 15:24 | ED.GENADULT ---
HPI - General Adult General Chief complaint: Vaginal Bleeding Stated complaint: Having a miscarriage, may have topic Time Seen by Provider: 07/28/24 15:10 Source: patient Mode of arrival: ambulatory Limitations: no limitations History of Present Illness HPI narrative: 28-year-old is 5 weeks gestation presents with vaginal bleeding. Patient states that she is soaking a pad every 2-3 hours approximately. She describes it as a heavier than normal period. Bleeding has been going on for about 14 hours. She denies feeling dizzy or lightheaded. No chest pain she has some mild abdominal cramping and low back discomfort. No fevers or chills. Related Data Home Medications ?Medication ?Instructions ?Recorded ?Confirmed cholecalciferol (vitamin D3) 25 25 mcg PO QDAY 09/26/22 03/08/23 mcg (1,000 unit) capsule prenat.vits,livan,atw-djeo-lljdr 1 tab PO QDAY 09/26/22 03/08/23 insulin aspart U-100 100 unit/mL 0.25 unit subcut TID 10/30/22 03/08/23 subcutaneous solution (Novolog U-100 Insulin aspart) insulin glargine 100 unit/mL 30 unit subcut QPM 10/30/22 03/08/23 subcutaneous solution (Lantus U-100 Insulin) aspirin 81 mg tablet,delayed 81 mg PO QDAY 12/28/22 07/28/24 release metformin 500 mg tablet,extended 1,000 mg PO BID 07/28/24 07/28/24 release 24 hr Previous Rx's ?Medication ?Instructions ?Recorded cephalexin 500 mg capsule 500 mg PO QID #20 caps 04/08/23 Allergies Allergy/AdvReac Type Severity Reaction Status Date / Time No Known Drug Allergies Allergy Verified 07/28/24 14:24 Review of Systems Status of ROS: Reports: 10 or more systems reviewed and unremarkable except as noted in History and below [facility] Medical History Type 2 diabetes mellitus affecting in third trimester, antepartum ?O24.113 - Pre-existing type 2 diabetes mellitus, in , third trimester (ICD-10) Carpal tunnel syndrome (04/07/21) ?G56.00 - Carpal tunnel syndrome, unspecified upper limb (ICD-10) History of depression ?Z86.59 - Personal history of other mental and behavioral disorders (ICD-10) History of anxiety ?Z86.59 - Personal history of other mental and behavioral disorders (ICD-10) History of abnormal cervical Pap smear (04/28/20) ?Z87.42 - Personal history of other diseases of the female genital tract (ICD-10) Mild asthma ?J45.909 - Unspecified asthma, uncomplicated (ICD-10) Oligohydramnios (~04/2021) ?O41.00X0 - Oligohydramnios, unspecified trimester, not applicable or unspecified (ICD-10) Surgical History History of wisdom tooth extraction ?K08.409 - Partial loss of teeth, unspecified cause, unspecified class (ICD-10) Status post primary low transverse section (05/17/21) ?Z98.891 - History of uterine scar from previous surgery (ICD-10) Social History Smoking Status: Never smoker Exam Narrative: Exam Narrative: Well-nourished well-developed patient in no acute distress. Alert and oriented. Answers questions appropriately. Mood and affect are appropriate. Thoughts are goal oriented and rational. No tangential or magical thinking noted. Patient speaks in full sentences without needing to catch her breath. HEENT: Normocephalic atraumatic. Pupils are equally round reactive to light. Extraocular muscles are intact. Conjunctivae are moist without any icterus noted. Moist mucous membranes. Cardiovascular: Heart is regular rate and rhythm S1 and S2 are present without any murmurs. Lungs: Clear to auscultation bilaterally no wheezes rhonchi or rales are appreciated. Patient takes deep breaths without any discomfort. Abdomen: Soft and nontender nondistended with normal bowel sounds. Extremities: Bilateral lower extremities are without edema. Skin: Well perfused. Const: Vital Signs, click to edit/add: Vital Signs - 24 hr 07/28/24 14:19 07/28/24 16:47 Temperature 99.7 F H Pulse Rate [Pulse Oximeter] 61 73 Respiratory Rate 18 20 Blood Pressure [Ri ght Upper Arm] 119/75 121/75 Pulse Oximetry 98 96 Oxygen Delivery Me thod Room Air Room Air Course Course ED Course: CBC is normal ABO Rh is O positive. HCG is 25 Ultrasound shows no viable . Consulted with Dr. Seals who recommends a repeat beta-hCG on Sunday of this week. Vital Signs Vital signs: Initial Vital Signs Temperature 99.7 F H 07/28/24 14:19 Temperature Source Temporal Artery Scan 07/28/24 14:19 Pulse Rate 61 07/28/24 14:19 Respiratory Rate 18 07/28/24 14:19 Blood Pressure 119/75 07/28/24 14:19 Blood Pressure Mean 89 07/28/24 14:19 Blood Pressure Position Sitting 07/28/24 14:19 Pulse Oximetry 98 07/28/24 14:19 Oxygen Delivery Method Room Air 07/28/24 14:19 Vital Signs Temperature 99.7 F H 07/28/24 14:19 Pulse Rate 61 07/28/24 14:19 Respiratory Rate 18 07/28/24 14:19 Blood Pressure 119/75 07/28/24 14:19 Pulse Oximetry 98 07/28/24 14:19 Oxygen Delivery Method Room Air 07/28/24 14:19 Temperature 99.7 F H 07/28/24 14:19 Pulse Rate 73 07/28/24 16:47 Respiratory Rate 20 07/28/24 16:47 Blood Pressure 121/75 07/28/24 16:47 Pulse Oximetry 96 07/28/24 16:47 Oxygen Delivery Method Room Air 07/28/24 16:47 Medical Decision Making MDM Narrative Medical decision making narrative: 28-year-old female with vaginal bleeding, likely representing a miscarriage. We discussed bleeding precautions and follow-up with OBGYN. Lab Data Lab results reviewed: Yes I reviewed the patient's lab results Labs: Lab Results 07/28/24 Range/Units 15:35 WBC 6.95 (4.50-11.00) K/uL RBC 5.54 H (4.00-5.20) m/uL Hgb 14.0 (12.0-16.0) gm/dL Hct 42.7 (33.0-51.0) % MCV 77 L (80-100) fL MCH 25 L (26-34) pg MCHC 33 (32-36) gm/dL RDW Coeff of Rusty 12.8 (11.5-15.5) % Plt Count 263 (140-440) K/uL Neut % (Auto) 59.3 (42.0-72.0) % Lymph % (Auto) 32.8 (20-44) % [place] % (Auto) 5.5 (0.0-11.0) % Eos % (Auto) 1.7 (0.0-7.0) % Baso % (Auto) 0.6 (0.0-3.0) % Neut # (Auto) 4.12 (1.7-7.0) K/uL Lymph # (Auto) 2.28 (0.90-2.90) K/uL [place] # (Auto) 0.40 (0.00-0.90) K/UL Eos # (Auto) 0.12 (0.00-0.50) K/uL Baso # (Auto) 0.04 (0.00-0.30) K/uL Abs Immat Gran (auto) 0.01 (0.00-0.30) K/uL Imm/Tot Granulo (auto) 0.1 % HCG, Quant 25.90 mIU/mL Blood Type O Positive Imaging Data US - abdomen: Attestation: I have reviewed the pertinent imaging results. Radiologist's impression: Bleeding in early Technique: Real-time sonographic images of the pelvis were obtained transabdominally and transvaginally utilizing grayscale, color, and Doppler imaging. Comparison: None. Findings: Uterus: Appearance: section scar is seen anteriorly. Position: Anteverted. Endometrial stripe: 14 mm. Right ovary: Size: 2.8 x 1.6 x 1.9 cm. Appearance: Normal morphology. No masses. Left ovary: Not visualized. Free fluid: None. Impression: No intrauterine gestational sac is identified. Findings may be seen in setting of early , missed , or ectopic . Recommend follow-up with serial beta-hCG and/or ultrasound. Discharge Plan Discharge Clinical Impression: Spontaneous Patient Disposition: Home, Self-Care Condition: Stable Instructions: Miscarriage (ED) Additional Instructions: You should follow-up with the OBGYN Clinic here in [place] on Sunday for a repeat beta-hCG level. They will contact you tomorrow to set this up. If you do not hear from them, you should give them a call to set up this appointment. Phone number will be provided to you. Prescriptions: No Action prenat.vits,livan,kum-fxth-mvnyr Tablet 1 tab PO QDAY cholecalciferol (vitamin D3) 25 mcg (1,000 unit) capsule 25 mcg PO QDAY insulin aspart U-100 [Novolog U-100 Insulin aspart] 100 unit/mL solution 0.25 unit subcut TID Patient Comments: patient reports taking 20-25 units at meals. insulin glargine [Lantus U-100 Insulin] 100 unit/mL solution 30 unit subcut QPM Patient Comments: patient reports 25-30 units at HS. aspirin 81 mg tablet,delayed release (DR/EC) 81 mg PO QDAY cephalexin 500 mg capsule 500 mg PO QID Qty: 20 0RF metformin 500 mg tablet extended release 24 hr 1,000 mg PO BID Follow Up/Referrals: Provider,Not a Local [Primary Care Provider] - Stand Alone Forms: [facility] Inst[facility]
[2024-07-28 15:49] LABS: Basophils Absolute Auto 0.04 K/uL (0.00-0.30); Basophils Percent Auto 0.6 % (0.0-3.0); Eosinophils Absolute Auto 0.12 K/uL (0.00-0.50); Eosinophils Percent Auto 1.7 % (0.0-7.0); Hematocrit 42.7 % (33.0-51.0); Immature Granulocytes Abs Auto 0.01 K/uL (0.00-0.30); Immature Granulocytes Pct Auto 0.1 %; Lymphocytes Absolute Auto 2.28 K/uL (0.90-2.90); Lymphocytes Percent Auto 32.8 % (20-44); Mean Corpuscular HGB Conc 33 gm/dL (32-36); Mean Corpuscular Hemoglobin 25 pg (26-34); Mean Corpuscular Volume 77 fL (80-100); Monocytes Percent Auto 5.5 % (0.0-11.0); Neutrophils Absolute Auto 4.12 K/uL (1.7-7.0); Neutrophils Percent Auto 59.3 % (42.0-72.0); Platelet Count* 263 K/uL (140-440); RDW Coefficient of Variation % 12.8 % (11.5-15.5); Red Blood Count 5.54 m/uL (4.00-5.20); White Blood Count* 6.95 K/uL (4.50-11.00)
--- OUTSIDE RECORDS SUMMARY | 2024-07-28 15:59 | XMS_ITS | Encounter Summary ---
Author Organization [facility] Address [address] [place] [address] Care Team Providers Care Wagon Drill Operator Name Role Phone Letty Crowley MD Primary Care Provider + No Ref-Primary, Physician Unavailable Concha Klein PA-C Unavailable Eliza Blackman DO Unavailable [phone] Cesar Castro MD Unavailable [phone] Concha Klein PA-C Unavailable Encounter Details Date Type Department Care Team (Late st Contact Info) Description 03/13/2023 [facility] Medical Advice [facility] [address] [place] [address] Milagros Steward, RN Social History [...] on filedocumented in this encounter Care Teams Wagon Drill Operator Relationship Specialty Start Date End Date Letty Crowley MD [facility] [address] [place] [address] PCP - General red hat linux administrator 01/13/21 No Ref-Primary, Physician 01/13/21 Concha Klein PA-C [address] [place], [place] [address] Physician Remotely Piloted Vehicle Controller Endocrinology, Diabetes, and Metabolism 10/10/22 Eliza Blackman DO [address] [address] Assigned OBGYN Provider 04/14/23 Cesar Castro MD [address] [address] Assigned OBGYN Provider 03/31/23 Concha Klein PA-C [address] [place], [place] [address] Assigned Endocrinology Provider 08/24/23 06/13/24 documented as of this encounter
--- OUTSIDE RECORDS SUMMARY | 2024-07-28 15:59 | XMS_ITS | Clinical Summary ---
Author Organization [facility] Address [place], [place] [address] Care Team Providers Care Protection Officer Name Role Phone Gisela Piedra MD Primary Care Provider Allergies Active Allergy Reactions Criticality Noted Date Comments Allergenic Extracts Itching Low 11/03/2020 Glycerin Rash Low 09/26/2022 Unsure if this is correct- rash from Pantene shampoo Lactose GI Upset 10/01/2019 Medications hydrOXYzine HCL (ATARAX) 25 mg tabletIndicatio ns:LUDY (generalized anxiety disorder) Take 1 tab by mouth twice daily as needed for anxiety. 30 Tablet 4 Active albuterol HFA (Ventolin HFA) 90 mcg/actuation inhalerIndicati ons:Cough Inhale 2 Puffs by mouth every 6 hours if needed for Shortness Of Breath. 18 g 1 4 Active metFORMIN (GLUCOPHAGE XR) 500 mg Extended-Releas e tabletIndicatio ns:Type 2 diabetes mellitus with hyperglycemia, without long-term current use of insulin (HC) Take 2 Tablets (1,000 mg) by mouth two times daily with meals. 360 Tablet 1 4 Active Active Problems Problem Noted Date Diagnosed Date ASCUS of cervix with negative high risk HPV 01/2020 Overview (05/14/2020): 04/2020 ASCUS/HPV negative. 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 pylori infection 04/23/2013 Contraception 02/13/2012 Overview (08/15/2017): Mirena removed 08/15/17 Resolved Problems Problem Noted Date Diagnosed Date Resolved Date Cough with hemoptysis 05/25/20172023 IUD (intrauterine device) in place 10/02/2014 08/15/2017 Overview (10/02/2014): mirena- placed 10/02/2014 Encounter for insertion of Mirena IUD 10/02/2014 08/15/2017 Encounters Date Type Department Care Team Description 07/10/2024 5:00 PM OFFICE TECHNOLOGY INSTRUCTOR Telemedicine [facility] [id number] [place] [phone] Deja Bundy MD Medication Management 07/10/2024 Travel 05/22/2024 Refill [facility] [id number] [place] [phone] Deja Bundy MD Refill Request (METFORMIN ER 500 MG TAB) from Last 3 Months Immunizations Name Administration Dates Next Due DTaP 11/20/1998, 6,06/11/1994,03/31/1994, 01/23/1994 HPV 9 (Gardasil 9) 03/10/2016 Hepatitis A (Peds) 09/28/2010 Hepatitis B (Peds) 06/11/1994,03/31/1994, 994 Hepatitis B, Unspecified 06/11/1994,03/31/1994,0 01/23/1994 Human Papilloma Virus Vaccine 02/13/2013, 013 Influenza A (H1N1), Inactivated 07/28/2009 Influenza, IIV3 (Age >=3 years) 05/26/2013,06/28,07/28/2009 Influenza, IIV4 05/19/2021, 0,04/08/2019,08/02/2017, 06/07/2016 MMR 04/07/2000,01/24/1996 Polio Virus, Unspecified 06/11/1994,03/31/1994,0 01/23/1994 Td (Age >=7 Years) 03/18/2009 Tdap 01/16/2023, 1,02/18/2019,03/18/2008, 03/18/2008 Family History Medical History Relation Name Comments HIV Brother Ayden Unknown Father No Known Problems Half-Brother 1 Sonu No Known Problems Half-Brother 2 Hector No Known Problems Maternal Grandfather No Known Problems Maternal Grandmother No Known Problems Mother Unknown Paternal Grandfather Unknown Paternal Grandmother Relation Name Status Comments Brother Ayden Alive Father Half-Brother 1 Sonu Alive Half-Brother 2 Hector Alive Maternal Grandfather Maternal Grandmother Mother Alive Paternal Grandfather Paternal Grandmother Social History Tobacco Use Types Packs/Day Years Used Date Smoking Tobacco: Never Cigarettes Smokeless Tobacco: Never Tobacco Cessation:Counseling Given: Not Answered Alcohol Use Standard Drinks/Week Comments Yes 0 (1 standard drink = 0.6 oz pur e alcohol) [facility] Utilities Answer Date Recorded Do you have trouble paying f or utilities (for example, heat, electricity, water, phone)? Yes 11/06/2023 PHQ-2 Answer Date Recorded PHQ-2 TOTAL SCORE 0 11/06/2023 Social Connections Answer Date Recorded Do you often feel lonely or isolated from those around you? 0 11/06/2023 Alcohol Use Answer Date Recorded How often do you have a drink containing alcohol ? 3 12/21/2021 How many drinks containing a lcohol do you have on a typical day when you are drinking? 0 12/21/2021 How often do you have five or more drinks on one occasion? 0 12/21/2021 Financial Resource Strain Answer Date R ecorded Difficulty of Paying Living Expenses 3 11/06/2023 Difficulty of Paying Living Expenses Not on file 11/06/2023 Food Insecurity Answer Date Recorded Do you worry your food will run out before you are able to buy more? 1 11/06/2023 Transportation Needs Answer Date Record ed Does lack of transportation keep you from medica l appointments? 1 11/06/2023 Does lack of transportation keep you from work, meetings or getting things that you need? 1 11/06/2023 Housing Stability Answer Date Recorded What is your housing situation today? 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 2022 Term 39w 1d 4.27 kg (9 lb 6.6 oz) F CS-Un spec Epidur al N Livin g 8 9 Karin Delivery Location:[facility] ( [facility]OR AND DEL[facility]) Last Filed Vital Signs Vital Sign Reading Time Taken Comments Blood Pressure 100/60 07/26/2022 3:27 PM OFFICE TECHNOLOGY INSTRUCTOR Pulse 73 02/27/2024 2:37 PM CDT Temperature 36.1 C (97 F) 11/06/2023 4:18 PM CDT Respiratory Rate 16 11/06/2023 4:18 PM CDT Oxygen Saturation 97% 02/27/2024 2:37 PM CDT Inhaled Oxygen Concentration - - Weight 80.7 kg (178 lb) 02/27/2024 2:37 PM CDT Height 153.7 cm (5' 0.5) 11/06/2023 4:18 PM CDT WITH SHOES ON Body Mass Index 34.19 11/06/2023 4:18 PM CDT Plan of Treatment Upcoming Encounters Date Type Department Care Team (Late st Contact Info) Description 07/30/2024 5:25 PM OFFICE TECHNOLOGY INSTRUCTOR Office Visit [facility] [address] [place] [phone] [place] [address] [place] [address] Health Maintenance Due Date Last Done Comments Pneumococcal series for age 6-49 (1 of 2 - PCV) 2012 COVID-19 vaccine series (1 - 2023- season) 2024 Influenza for age 9-49 03/23/2024 , 04/28/2020, 04/08/2019, Additional history exists Pap test for age 21-65 07/01/2024 , 04/28/2020, 04/28/2020, Additional history exists BMI (ht and wt on same day) for age 18+ 11/05/2024 11/06/2023, 07/26/2022, 05/31/2022, Additional history exists Depression screening for age 12+ 11/05/2024 11/06/2023, 05/31/2022, 05/31/2022, Additional history exists Tetanus booster 01/16/2033 01/16/2023, 03/23, 02/18/2019, Additional history exists Hepatitis B series for Diabetes Completed 06/11/1994, 06/11/1994, 03/31/1994, Additional history exists Hepatitis C screening for ag e 18-79 Completed 04/01/2019, 02/04/2018, 01/10/2018, Additional history exists HIV for age 15-65 Completed 06/09/2019, , 05/17/2018, Additional history exists Tdap Completed 01/16/2023, 03/23, 02/18/2019, Additional history exists Procedures Procedure Name Priority Date/Time Associated Diagnosis Comments GARAGE DOOR INSTALLER THIN PREP PAP SCREEN IMAGED Routine 07/01/2021 9:50 AM OFFICE TECHNOLOGY INSTRUCTOR ANTI HIV 1/2 Routine 06/09/2019 2:58 PM OFFICE TECHNOLOGY INSTRUCTOR Screen for STD (sexually transmitted disease) ACUTE HEPATITIS PANEL Add On 04/01/2019 10:39 AM CDT Adverse food reaction, initial encounter from Last 3 Months or Most Recently Relevant to Health Maintenance Results * GARAGE DOOR INSTALLER THIN PREP PAP SCREEN IMAGED (07/01/2021 9:50 AM OFFICE TECHNOLOGY INSTRUCTOR) Case Report Gynecologic Cytology Report Case: [id number] Authorizing Provider: Letty Pinedo Collected: 07/01/2021 0950 MD Cherise Ordering Location: [facility] Received: 07/04/2021 0841 First Screen: Eliza Hidalgo Rescreen: Indira Oh Specimen: GARAGE DOOR INSTALLER ThinPrep Vial Screening, Cervical/Vaginal 07/19/2021 12:16 PM OFFICE TECHNOLOGY INSTRUCTOR [facility] INTERPRETATION/ RESULT NEGATIVE FOR INTRAEPITHELIAL LESION OR MALIGNANCY (NIL) (none) 07/19/2021 12:16 PM OFFICE TECHNOLOGY INSTRUCTOR [facility] IMEN ADEQUACY Satisfactory for evaluation Endocervical component present 07/19/2021 12:16 PM OFFICE TECHNOLOGY INSTRUCTOR [facility] HPV REQUEST HPV if ASCUS 07/19/2021 12:16 PM OFFICE TECHNOLOGY INSTRUCTOR [facility] Last Pap Date 04/28/2020 07/19/2021 12:16 PM OFFICE TECHNOLOGY INSTRUCTOR [facility] Last Pap Result ASCUS 12:16 PM OFFICE TECHNOLOGY INSTRUCTOR [facility] Comment:neg hpv Additional Information 07/19/2021 12:16 PM OFFICE TECHNOLOGY INSTRUCTOR [facility] Comment: Interpreted at [facility] - [address] [address] Automated Review Successful 07/19/2021 12:16 PM OFFICE TECHNOLOGY INSTRUCTOR [facility] Comment:Specimen processed s uccessfully by automated poultry pathologist device, ThinPrep Imaging System, [employer] Note The pap test is a screening technique, not a diagnostic procedure. It is used primarily to screen for squamous cancers and precursor lesions. Published studies have shown that it is subject to both false negative and false positive results. The pap test should not be used as the sole means to diagnose or exclude pre-malignant and malignant lesions. 07/19/2021 12:16 PM OFFICE TECHNOLOGY INSTRUCTOR [facility] Other (Cervical/Vagina l) 07/01/2021 9:50 AM OFFICE TECHNOLOGY INSTRUCTOR 07/04/2021 8:41 AM OFFICE TECHNOLOGY INSTRUCTOR us Letty Pinedo MD PATHOLOGY/CYTOLOGY Final Result [facility] [address] [place] [address], * ANTI HIV 1/2 (06/09/2019 2:58 PM OFFICE TECHNOLOGY INSTRUCTOR) HIV-1/HIV-2 ANTIBODY Non-Reacti ve Non-Reacti ve 06/09/2019 7:57 PM OFFICE TECHNOLOGY INSTRUCTOR [facility] Comment:HIV-1 p24 and HIV-1/ HIV-2 Ab not detected. Blood BLOOD SPECIMEN / Unknown Venipuncture / Unknown 06/09/2019 2:58 PM OFFICE TECHNOLOGY INSTRUCTOR 06/09/2019 2:58 PM OFFICE TECHNOLOGY INSTRUCTOR us Tessa Anders CNM SEND OUTS Final Result Performing Organization Address City/[facility] Co de Phone Number [facility] [address] [place] [address], [place] * ACUTE HEPATITIS PANEL (04/01/2019 10:39 AM CDT) HEPATITIS C ANTIBODY Non-Reactive Non-Reactive 04/02/2019 1:30 PM CDT [facility] Comment:Antibodies to HCV no t detected; does not exclude the possibility of exposure to HCV. IGM ANTI HAV Non-Reactive Non-Reactive 04/02/20 19 1:30 PM CDT [facility]-C ENTRAL LABORATORY HBSAG Nonreactive Nonreactive 04/02/2019 1:30 PM CDT [facility] IGM ANTI HBC Non-Reactive Non-Reactive 04/02/20 19 1:30 PM CDT [facility] Blood BLOOD SPECIMEN / Unknown Venipuncture / Unknown 04/01/2019 10:39 AM CDT 04/01/2019 10:39 AM CDT Narrative [facility] - 04/02/2019 1:30 PM CDT Anti-HBc IgM not detected. Does not exclude the possibility of exposure to or infection with HBV. us Omar Don MD SEND OUTS Final Result [facility] [address] [place] [address], [place] from Last 3 Months or Most Recently Relevant to Health Maintenance Insurance [employer]! [facility] * Guarantor: [facility] [employer] Account Type Relation to Patient Date of Phone Billing Address Occ Health/Paige Other FAMILY PLAN - [employer] [address] [place] [id number] Advance Directives * Full Code (Latest Code Status on File) Date Activated Date Inactivated Comments 05/25/2017 6:51 PM 05/29/2017 8:38 PM Care Teams Protection Officer Relationship Specialty Start [place] [address] [place] [address] PCP - General Family Practice 08/29/23
--- OUTSIDE RECORDS SUMMARY | 2024-07-28 15:59 | XMS_ITS | Encounter Summary ---
Author Organization [place] Address [facility] [place] [address] Care Team Providers Care Back Stayer Name Role Phone Letty Crowley MD Primary Care Provider + No Ref-Primary, Physician Unavailable [phone] Concha Klein PA-C Unavailable Eliza Blackman DO Unavailable [phone] Reason for Visit * Reason Onset Date Comments Vaginal Bleeding 07/28/2024 Encounter Details Date Type Department Care Team (Late st Contact Info) Description 07/28/[address] [facility] [place] [address] [place] [address] Eliza Blackman DO [address] [place] [address] Vaginal Bleeding Social History Tobacco Use Types Packs/Day Years Used Date Smoking Tobacco: Never Smokeless Tobacco: Never Alcohol Use Standard Drinks/Week Comments Not Currently 0 (1 standard drink = 0.6 oz pur e alcohol) PHQ-2 Answer Date Recorded PHQ-2 Score 1 05/09/2023 [place] Depression Scale Answer Date Recorded Last EPDS [...] Eliza Blackman DO - 07/28/2024 11:00 AM SUPERVISOR PREP Agree, RVISOR PREP * Telephone Encounter - Milagros Steward RN [...] go to ED. O Pos Milagros Davison ROPEMAN [place] dress marker RVISOR PREP documented in this encounter Plan of Treatment [...] documented as of this encounter Care Teams Back Stayer Relationship Specialty Start Date End Date Letty Crowley MD [facility] [address] [place] [address] PCP - General class a regional drivers 01/13/21 No Ref-Primary, Physician 01/13/21 Concha Klein PA-C [address] [place] [address] Physician Scrubbing Machine Operator Endocrinology, Diabetes, and Metabolism 10/10/22 Eliza Blackman DO [address] [address] Assigned OBGYN Provider 04/14/23 documented as of this encounter
--- OUTSIDE RECORDS SUMMARY | 2024-07-28 15:59 | XMS_ITS | Encounter Summary ---
Author Organization [facility] Address [address] [place] [address] Care Team Providers Care Rotary Saw Operator Name Role Phone Letty Crowley MD Primary Care Provider + No Ref-Primary, Physician Unavailable [phone] Concha Klein PA-C Unavailable Eliza Blackman DO Unavailable [phone] Cesar Castro MD Unavailable [phone] Concha Klein PA-C Unavailable Encounter Details Date Type Department Care Team (Late st Contact Info) Description 04/09/2023 [facility] Medical Advice [facility] [address] [place] [address] Milagros Steward, RN Social History Tobacco Use Types Packs/Day Years Used Date Smoking Tobacco: Never Smokeless Tobacco: Never Alcohol Use Standard Drinks/Week Comments Not Currently 0 (1 standard drink = 0.6 oz pur e alcohol) PHQ-2 Answer Date Recorded PHQ-2 Score 0 03/14/2023 [place] Depression Scale Answer Date Recorded Last EPDS [...] on filedocumented in this encounter Care Teams Rotary Saw Operator Relationship Specialty Start Date End Date Letty Crowley MD [facility] [address] [place] [address] PCP - General complex case manager 01/13/21 No Ref-Primary, Physician 01/13/21 Concha Klein PA-C [address] [place] [address] Physician Poacher Wringer Operator Endocrinology, Diabetes, and Metabolism 10/10/22 Eliza Blackman DO [address] [address] Assigned OBGYN Provider 04/14/23 Cesar Castro MD [address] [address] Assigned OBGYN Provider 03/31/23 Concha Klein PA-C [address] [place] [address] Assigned Endocrinology Provider 08/24/23 06/13/24 documented as of this encounter
--- OUTSIDE RECORDS SUMMARY | 2024-07-28 15:59 | XMS_ITS | Encounter Summary ---
Author Organization [place] Address [address] [place] [address] Care Team Providers Care Operater Name Role Phone Letty Crowley MD Primary Care Provider + No Ref-Primary, Physician Unavailable [phone] Concha Klein PA-C Unavailable Eliza Blackman DO Unavailable [phone] Cesar Castro MD Unavailable [phone] Concha Klein PA-C Unavailable Encounter Details Date Type Department Care Team (Late st Contact Info) Description 2022 [facility] [place] Medical Advice [facility] [address] [place] [address] Hernan Carver Social History Tobacco Use [...] on filedocumented in this encounter Care Teams Operater Relationship Specialty Start Date End Date Letty Crowley MD [address] [address] PCP - General upkeep worker 01/13/21 No Ref-Primary, Physician 01/13/21 Concha Klein PA-C [address] [place] [address] Physician Fast Foods Worker Endocrinology, Diabetes, and Metabolism 10/10/22 Eliza Blackman DO [address] [facility] [address] [place] [address] Assigned OBGYN Provider 04/14/23 Cesar Castro MD [address] [facility] [address] [place] [address] Assigned OBGYN Provider 03/31/23 Concha Klein PA-C [address] [place] [address] Assigned Endocrinology Provider 08/24/23 06/13/24 documented as of this encounter
--- OUTSIDE RECORDS SUMMARY | 2024-07-28 15:59 | XMS_ITS | Encounter Summary ---
Author Organization [place] Address [address] [place] [address] Care Team Providers Care Dean Name Role Phone Letty Crwoley MD Primary Care Provider + No Ref-Primary, Physician Unavailable [phone] Concha Klein PA-C Unavailable Eliza Blackman DO Unavailable [phone] Cesar Castro MD Unavailable [phone] Concha Klein PA-C Unavailable Encounter Details Date Type Department Care Team (Late st Contact Info) Description 03/21/2023 [facility] Medical Advice [facility] [address] [address] Shannan Argueta, [facility] Social History Tobacco Use Types Packs/Day Years [...] on filedocumented in this encounter Care Teams Dean Relationship Specialty Start Date End Date Letty Catalan MD [address] [address] PCP - General sound effects supervisor 01/13/21 No Ref-Primary, Physician 01/13/21 Concha Klein PA-C [address] [place] [address] Physician Media Analyst Endocrinology, Diabetes, and Metabolism 10/10/22 Eliza Blackman DO [address] [address] Assigned OBGYN Provider 04/14/23 Cesar Castro MD [address] [address] Assigned OBGYN Provider 03/31/23 Concha Klein PA-C [address] [place] [address] Assigned Endocrinology Provider 08/24/23 06/13/24 documented as of this encounter
--- OUTSIDE RECORDS SUMMARY | 2024-07-28 15:59 | XMS_ITS | Encounter Summary ---
Author Organization [place] Address [address] [place] [address] Care Team Providers Care Grease Rack Worker Name Role Phone Letty Crowley MD Primary Care Provider + No Ref-Primary, Physician Unavailable [phone] Concha Klein PA-C Unavailable Eliza Blackman DO Unavailable [phone] Concha Klein PA-C Unavailable Reason for Visit * Reason Onset Date Comments Symptoms 05/18/2023 Rash by C sectio n scar Encounter Details Date Type Department Care Team (Late st Contact Info) Description 05/18/[address] [facility] [address] [place] [address] Eliza Blackman DO [address] [place] [address] Symptoms (Rash by C section scar) Social History Tobacco Use Types Packs/Day Years Used Date Smoking Tobacco: Never Smokeless Tobacco: Never Alcohol Use Standard Drinks/Week Comments Not Currently 0 (1 standard drink = 0.6 oz pur e alcohol) PHQ-2 Answer Date Recorded PHQ-2 Score 1 05/09/2023 [place] Depression Scale Answer Date Recorded Last EPDS [...] documented as of this encounter Care Teams Grease Rack Worker Relationship Specialty Start Date [place] [address] PCP - General utility worker forge 01/13/21 No Ref-Primary, Physician 01/13/21 Concha Klein PA-C [address] [place] [address] Physician Rn Otolaryngology Endocrinology, Diabetes, and Metabolism 10/10/22 Eliza Blackman DO [address] [address] Assigned OBGYN Provider 04/14/23 Concha Klein PA-C [address] [place] [address] Assigned Endocrinology Provider 08/24/23 06/13/24 documented as of this encounter
--- OUTSIDE RECORDS SUMMARY | 2024-07-28 15:59 | XMS_ITS | Encounter Summary ---
Author Organization [place] Address [address] [place] [address] Care Team Providers Care Follow Up Manager Name Role Phone Letty Crowley MD Primary Care Provider + No Ref-Primary, Physician Unavailable [phone] Concha Klein PA-C Unavailable Eliza Blackman DO Unavailable [phone] Encounter Details Date Type Department Care Team (Latest Contact Info) Description 07/28/2024 Travel Social History Tobacco Use Types Packs/Day Years Used Date Smoking Tobacco: Never Smokeless Tobacco: Never Alcohol Use Standard Drinks/Week Comments Not Currently 0 (1 standard drink = 0.6 oz pur e alcohol) PHQ-2 Answer Date Recorded PHQ-2 Score 1 05/09/2023 [place] Depression Scale Answer Date Recorded Last EPDS [...] documented as of this encounter Care Teams Follow Up Manager Relationship Specialty Start Date End Date Letty Crowley MD [facility] [address] [place] [address] PCP - General workforce planner 01/13/21 No Ref-Primary, Physician 01/13/21 Concha Klein PA-C [address] [place] [address] Physician Terra [place]ta Roofer Helper Endocrinology, Diabetes, and Metabolism 10/10/22 Eliza Blackman DO [address] [address] Assigned OBGYN Provider 04/14/23 documented as of this encounter
--- OUTSIDE RECORDS SUMMARY | 2024-07-28 15:59 | XMS_ITS | Clinical Summary ---
Author Organization [facility] Address [address] [place] [address] Care Team Providers Care Chemical Handler Name Role Phone Unavailable Primary Care Provider Unavailabl e Source Comments You are receiving this document as you are listed as the primary care provider,follow-up provider, or the patient has been referred to you for consultation.This is in compliance with the Medicare and[facility] EHR Incentive Program,which states Providers who transition their patient to another setting of careor provider of care or refers their patient to another provider of care shouldprovide summary care record for each transition of care or referral. [facility] Allergies No known active allergies Medications Medication [...] Most Recently Relevant to Health Maintenance [phone] [place] [address]
--- OUTSIDE RECORDS SUMMARY | 2024-07-28 15:59 | XMS_ITS | Encounter Summary ---
Author Organization [place] Address [address] [place] [address]. [place] [address] Care Team Providers Care Pharmacy Service Associate Name Role Phone Letty Crowley MD Primary Care Provider + No Ref-Primary, Physician Unavailable [phone] Concha Klein PA-C Unavailable Eliza Blackman DO Unavailable [phone] Cesar Castro MD Unavailable [phone] Concha Klein PA-C Unavailable Encounter Details Date Type Department Care Team (Late st Contact Info) Description 11/15/2022 [facility] Medical Advice [facility] [address] [address] Kristy Renee LPN Social History [...] on filedocumented in this encounter Care Teams Pharmacy Service Associate Relationship Specialty Start Date End Date Letty Crowley MD [address] [address] PCP - General mercantile agent 01/13/21 No Ref-Primary, Physician 01/13/21 Concha Klein PA-C [address] [place] [address] Physician Motel Front Desk Attendant Endocrinology, Diabetes, and Metabolism 10/10/22 Eliza Blackman DO [address] [address] Assigned OBGYN Provider 04/14/23 Cesar Castro MD [address] [employer] [address] [address] Assigned OBGYN Provider 03/31/23 Concha Klein PA-C [address] [place] [address] Assigned Endocrinology Provider 08/24/23 06/13/24 documented as of this encounter
--- OUTSIDE RECORDS SUMMARY | 2024-07-28 15:59 | XMS_ITS | Referral Summary ---
Author Organization [place] Address [address] [place] [address] Care Team Providers Care Solderer Assembly Repair Name Role Phone Letty Crowley MD Primary Care Provider + No Ref-Primary, Physician Unavailable Concha Klein PA-C Unavailable Eliza Blackman DO Unavailable [phone] Encounters Date Type Department Care Team Description 07/28/2024 Travel 07/28/2024 Telephone [facility] [place] [address] [place] [address] Eliza Blackman DO Vaginal Bleeding from Last 3 Months Allergies Active Allergy Reactions Criticality Noted Date Comments Cat Hair Extract Itching Low 11/03/2020 Glycerin Rash Low 09/26/2022 Unsure if this is correct- rash from Pantene shampoo Medications cholecalciferol (VITAMIN D3) 25 mcg (1000 units) capsule 3 Active Vit-Fe Fumarate-FA ( 1+1 OR) Active nystatin (MYCOSTATIN) 155282 UNIT/GM external creamIndication s:Yeast infection of the [...] & Plan: Labs today Follow up with credit risk officer team to help with insulin dose adjustment, [...] Answer Date Recorded PHQ-2 Score 1 05/09/2023 [place] Depression Scale Answer Date Recorded Last EPDS [...] ANTIBODY (EXTERNAL RESULT) Routine 08/15/2022 9:00 AM ELECTROPLATER AUTOMATIC from Last 3 Months or Most Recently [...] LAB - BLOOD ORDERABLES Final Result LABORATORY [facility] [address] Lab (1st floor, no room number) [place] [address] * (ABNORMAL) Basic metabolic panel (BMP) (02/06/2024 [...] - BLOOD ORDERABLES Final Result RH LABORATORY [facility] [address] [facility] Lab (1st floor, no room number) [place] [address] * HIV-1 Antibody (External Result) (08/15/2022 9:00 AM ELECTROPLATER AUTOMATIC) HIV 1&2 Antibody (External) Negative Nonreactive EXTERNAL LAB 08/15/2022 9:00 AM ELECTROPLATER AUTOMATIC Patient Reported LAB - HIM EXTERNAL RESULT Final Result EXTERNAL LAB External Lab from Last 3 Months or Most Recently Relevant to Health Maintenance Insurance [facility] WITH [employer] [facility] WITH [facility] Advance Directives For more information, please contact: [phone] * Full Code (Latest Code Status on [...] patie nt/ legal decision maker Care Teams Solderer Assembly Repair Relationship Specialty Start Date End Date Letty Crowley MD [facility] [address] [place] [address] PCP - General farm labor contractor 01/13/21 No Ref-Primary, Physician 01/13/21 Concha Klein PA-C [address] [place] [address] Physician Labor Relations Specialist Endocrinology, Diabetes, and Metabolism 10/10/22 Eliza Blackman DO [address] [address] Assigned OBGYN Provider 04/14/23
--- OUTSIDE RECORDS SUMMARY | 2024-07-28 15:59 | XMS_ITS | Clinical Summary ---
Author Organization [facility] Address [address] [place] [address] Care Team Providers Care Sugar Laboratory Assistant Name Role Phone Letty Crowley MD Primary Care Provider + No Ref-Primary, Physician Unavailable [phone] Concha Klein PA-C Unavailable Eliza Blackman DO Unavailable [phone] Allergies Active Allergy Reactions Criticality Noted Date Comments Cat Hair Extract Itching Low 11/03/2020 Glycerin Rash Low 09/26/2022 Unsure if this is correct- rash from Pantene shampoo Medications cholecalciferol (VITAMIN D3) 25 mcg (1000 units) capsule 3 Active Vit-Fe Fumarate-FA ( 1+1 OR) Active nystatin (MYCOSTATIN) 266255 UNIT/GM external creamIndication s:Yeast infection of the [...] & Plan: Labs today Follow up with log getter team to help with insulin dose adjustment, by next week. Follow up with me in 1 month (clinic / video / telephone) Previous delivery a ffecting 08/15/2022 2022 03/25/2023 Encounters Date Type Department Care Team Description 07/28/2024 Travel 07/28/[address] [facility] [address] [place] [address] Eliza Blackman, Vaginal Bleeding from [...] Answer Date Recorded PHQ-2 Score 1 05/09/2023 [place] Depression Scale Answer Date Recorded Last EPDS [...] ANTIBODY (EXTERNAL RESULT) Routine 08/15/2022 9:00 AM DIRECTOR OF MARKETING from Last 3 Months or Most Recently [...] LAB - BLOOD ORDERABLES Final Result LABORATORY [facility] Acute Care Lab [address] [facility] Lab (1st floor, no room number) [place] [address] * (ABNORMAL) Basic metabolic panel (BMP) (02/06/2024 [...] - BLOOD ORDERABLES Final Result RH LABORATORY [facility] Acute [facility] Lab [address] [facility] Lab (1st floor, no room number) [place] [address] * HIV-1 Antibody (External Result) (08/15/2022 9:00 AM DIRECTOR OF MARKETING) [facility] Signature HIV 1&2 Antibody (External) Negative Nonreactive EXTERNAL LAB 08/15/2022 9:00 AM DIRECTOR OF MARKETING us Patient Reported LAB - HIM EXTERNAL RESULT Final Result EXTERNAL LAB External Lab from Last 3 Months or Most Recently Relevant to Health Maintenance Insurance [facility] [employer] [facility] [employer] [facility] Advance Directives For more information, please contact: [phone] * Full Code (Latest Code Status on [...] manjite nt/ legal decision maker Care Teams Sugar Laboratory Assistant Relationship Specialty Start Date End Date Letty Crowley MD [facility] [address] [place] [address] PCP - General middleware consultant 01/13/21 No Ref-Primary, Physician 01/13/21 Concha Klein PA-C [address] [place] [address] Physician Outboard System Operator Endocrinology, Diabetes, and Metabolism 3/21/23 Eliza Blackman DO [address] [address] Assigned OBGYN Provider 04/14/23
[2024-07-28 16:16] LABS: Slide Review Reflex No
[2024-07-28 16:47] VITALS: BP 121/75; PULSE 73; RESP 20; O2SAT 96
== END 2024-07-28 17:11 | disposition home or self-care (01) ==
PROVIDERS: Emergency Provider Family Medicine
DX: O03.9 Complete or unspecified spontaneous abortion without complication (principal)
CPT/HCPCS: 36415; 76817; 84702; 85025; 86900; 86901; 99284

== ENCOUNTER 2024-07-30 08:11 | Outpatient (CLI) | payer BC, SELFPAY | END 2024-07-30 08:12 | disposition home or self-care (01) | LOC: LKVREF 11:00 | PROVIDERS: PCP Obstetrics & Gynecology; Visit Provider Obstetrics & Gynecology | DX: O20.9 Hemorrhage in early pregnancy, unspecified (principal) | CPT/HCPCS: 84702 ==

== ENCOUNTER 2024-09-16 15:52 | Outpatient (CLI) | payer BC, SELFPAY | END 2024-09-16 15:53 | disposition home or self-care (01) | LOC: US 15:52 | PROVIDERS: Visit Provider Registered Nurse | DX: Z34.91 Encounter for supervision of normal pregnancy, unspecified, first trimester (principal); Z3A.01 Less than 8 weeks gestation of pregnancy | CPT/HCPCS: 76817; 83021; 86703; 86706; 86803; 86850; 86900; 86901; 87086; 87340 ==

== ENCOUNTER 2024-09-16 17:17 | Outpatient (CLI) | payer BC, SELFPAY | END 2024-09-16 17:18 | disposition home or self-care (01) | PROVIDERS: Visit Provider Registered Nurse | DX: Z34.91 Encounter for supervision of normal pregnancy, unspecified, first trimester (principal); Z3A.01 Less than 8 weeks gestation of pregnancy | CPT/HCPCS: 83020; 83021; 85660; 86592; 86703; 86704; 86706; 86762; 86787; 86803; 86850; 86900; 86901; 87086; 87340 ==

== ENCOUNTER 2024-10-29 09:28 | Emergency (ER) | payer BC, MEDICAID, SELFPAY ==
--- OUTSIDE RECORDS SUMMARY | 2024-10-29 09:31 | XMS_ITS | Encounter Summary ---
Author Organization [facility] Address [address] [place] [address]. [place] [address] Care Team Providers Care Toe Puncher Name Role Phone Letty Crowley MD Primary Care Provider + No Ref-Primary, Physician Unavailable [phone] Concha Klein PA-C Unavailable Eliza Blackman DO Unavailable [phone] Cesar Castro MD Unavailable [phone] Concha Klein PA-C Unavailable Encounter Details Date Type Department Care Team (Late st Contact Info) Description 11/15/2022 My[facility] Medical Advice [facility] Endocr[facility]ology Clinic [address] [address] Kristy Renee LPN Social History [...] as of this encounter Plan of Treatment Upcoming Encounters Date Type Department Care Team (Late st Contact Info) Description 12/08/2024 8:45 AM CDT Appointment [facility] [place] [address] [place] [address] Kaley Reese MD [address] [place] [address] 12/08/2024 9:15 AM CDT Office Visit [facility] [address] [place] [address] Kaley Reese MD [address] [place] [address] documented as of this encounter Visit Diagnoses Not on filedocumented in this encounter Care Teams Toe Puncher Relationship Specialty Start Date End Date Letty Crowley MD [facility] [address] [place] [address] PCP - General theatre instructor 01/13/21 No Ref-Primary, Physician 01/13/21 Concha Klein PA-C [address] [place] [address] Physician Bioinformatics Engineer Endocrinology, Diabetes, and Metabolism 10/10/22 Eliza Blackman DO [address] [place] [address] Assigned OBGYN Provider 04/14/23 Cesar Castro MD [address] [place] [address] Assigned OBGYN Provider 03/31/23 Concha Klein PA-C [address] [place] [address] Assigned Endocrinology Provider 08/24/23 06/13/24 documented as of this encounter
--- OUTSIDE RECORDS SUMMARY | 2024-10-29 09:31 | XMS_ITS | Encounter Summary ---
Author Organization [facility] Address [address] [place] [address] Care Team Providers Care Trigonometry Teacher Name Role Phone Letty Crowley MD Primary Care Provider + No Ref-Primary, Physician Unavailable [phone] Concha Klein PA-C Unavailable Eliza Blackman DO Unavailable [phone] Cesar Castro MD Unavailable [phone] Concha Klein PA-C Unavailable Encounter Details Date Type Department Care Team (Late st Contact Info) Description 04/09/2023 [facility] [place] [facility] [address] [place] [address] Milagros Steward, RN Social History Tobacco Use Types Packs/Day Years Used Date Smoking Tobacco: Never Smokeless Tobacco: Never Alcohol Use Standard Drinks/Week Comments Not Currently 0 (1 standard drink = 0.6 oz pur e alcohol) PHQ-2 Answer Date Recorded PHQ-2 Score 0 03/14/2023 [place] Depression Scale Answer Date Recorded Last EPDS [...] Info) Description 12/08/2024 8:45 AM CDT Appointment [facility] [address] [place] [address] Kaley Reese MD [address] [place], [place] [address] 12/08/2024 9:15 AM CDT Office Visit [facility] [address] [place] [phone] Kaley Reese MD [address] [place], [place] [address] documented as of this encounter Visit Diagnoses Not on filedocumented in this encounter Care Teams Trigonometry Teacher Relationship Specialty Start Date End Date Letty Catalan MD [facility] [address] [place] [address] PCP - General segment producer 01/13/21 No Ref-Primary, Physician 01/13/21 Concha Klein PA-C [address] [place], [place] [address] Physician Silk Weaver Endocrinology, Diabetes, and Metabolism 10/10/22 Eliza Blackman DO [address] [address] Assigned OBGYN Provider 04/14/23 Cesar Castro MD [address] [place] [address] Assigned OBGYN Provider 03/31/23 Concha Klein PA-C [address] [place] [address] Assigned Endocrinology Provider 08/24/23 06/13/24 documented as of this encounter
--- OUTSIDE RECORDS SUMMARY | 2024-10-29 09:31 | XMS_ITS | Encounter Summary ---
Author Organization [place] Address [address] [place] [address]. [place] [address] Care Team Providers Care Blindstitch Lapel Padder Name Role Phone Letty Crowley MD Primary Care Provider + No Ref-Primary, Physician Unavailable [phone] Concha Klein PA-C Unavailable Eliza Blackman DO Unavailable [phone] Encounter Details Date Type Department Care Team (Late st Contact Info) Description 10/10/2024 Medical Correspondence [facility] Information Management [address] [facility] [address] [place] [address] Scan, Non-Provider Social History Tobacco Use Types Packs/Day Years Used Date Smoking Tobacco: Never Smokeless Tobacco: Never Alcohol Use Standard Drinks/Week Comments Not Currently 0 (1 standard drink = 0.6 oz pur e alcohol) PHQ-2 Answer Date Recorded PHQ-2 Score 1 05/09/2023 [place] Depression Scale Answer Date Recorded Last EPDS [...] Info) Description 12/08/2024 8:45 AM CDT Appointment [facility] [place] [address] [place] [address] Kaley Reese MD [address] [place] [address] 12/08/2024 9:15 AM CDT Office Visit [facility] Maternal Medicine [facility] [address] [place] [address] Kaley Reese MD [address] [place] [address] documented as of this encounter Visit Diagnoses Not on filedocumented in this encounter Additional Health Concerns Assessment Noted Time PHQ-9 Depression Total Score: 7 05/09/20 23 4:15 PM CDT documented as of this encounter Care Teams Blindstitch Lapel Padder Relationship Specialty Start Date End Date Letty Catalan MD [address] [address] PCP - General ceo and co founder 01/13/21 No Ref-Primary, Physician 01/13/21 Concha Klein PA-C [address] [place] [address] Physician Labor Relations Specialist Endocrinology, Diabetes, and Metabolism 10/10/22 Eliza Blackman DO [address] [place] [address] Assigned OBGYN Provider 04/14/23 documented as of this encounter
--- OUTSIDE RECORDS SUMMARY | 2024-10-29 09:31 | XMS_ITS | Encounter Summary ---
Author Organization [facility] Address [address] [place] [address] Care Team Providers Care Hydraulic Assembler Name Role Phone Letty Crowley MD Primary Care Provider + No Ref-Primary, Physician Unavailable [phone] Concha Klein PA-C Unavailable Eliza Blackman DO Unavailable [phone] Cesar Castro MD Unavailable [phone] Concha Klein PA-C Unavailable Encounter Details Date Type Department Care Team (Late st Contact Info) Description 03/21/2023 MyC Medical Advice [facility] [address] [address] Shannan Argueta, [facility] Social History Tobacco Use Types Packs/Day [...] Info) Description 12/08/2024 8:45 AM CDT Appointment [facility] Maternal Medicine [facility] [address] [place] [address] Kaley Reese MD [address] [place], [place] [address] 12/08/2024 9:15 AM CDT Office Visit [facility] Maternal Medicine [facility] [address] [place] [phone] Kaley Reese MD [address] [place], [place] [address] documented as of this encounter Visit Diagnoses Not on filedocumented in this encounter Care Teams Hydraulic Assembler Relationship Specialty Start Date End Date Letty Catalan MD [facility] [address] [place] [address] PCP - General brand coordinator 01/13/21 No Ref-Primary, Physician 01/13/21 Concha Klein PA-C [address] [place] [address] Physician Manager Investment Banking Endocrinology, Diabetes, and Metabolism 10/10/22 Eliza Blackman DO [address] [place] [address] Assigned OBGYN Provider 04/14/23 Cesar Castro MD [address] [place] [address] Assigned OBGYN Provider 03/31/23 Concha Klein PA-C [address] [place] [address] Assigned Endocrinology Provider 08/24/23 06/13/24 documented as of this encounter
--- OUTSIDE RECORDS SUMMARY | 2024-10-29 09:31 | XMS_ITS | Clinical Summary ---
Author Organization [facility] Address [address] [place] [address] Care Team Providers Care Leaf Sucker Operator Name Role Phone Unavailable Primary Care Provider Unavailabl e Source Comments You are receiving this document as you are listed as the primary care provider,follow-up provider, or the patient has been referred to you for consultation.This is in compliance with the Medicare and[place]health[place] EHR Incentive Program,which states Providers who transition their patient to another setting of careor provider of care or refers their patient to another provider of care shouldprovide summary care record for each transition of care or referral. [facility] Allergies No known active allergies Medications * This document contains information received from the source organization and may not represent a complete record from that organization. ONE TOUCH ULTRA MINI meterIndicatio ns:Pre-existin g type 2 diabetes mellitus during in first trimester Use 1 Each to test 4 times a day. Use as directed. 1 Each 11/27/19 21 Active blood glucose test stripIndicatio ns:Type 2 diabetes mellitus during , antepartum Use 1 Each to test 4 times a day. 400 Strip 3 09/10/19 25 Active insulin pen needle (BD ULTRAFINE LOIDA 2ND GEN) 32G X 4 MMIndications: Type 2 diabetes mellitus during , antepartum Use to inject insulin as instructed. 400 Each 3 09/10/19 25 Active Continuous Glucose Sensor (FREESTYLE JAGUAR 3 PLUS SENSOR) MISCIndication s:Type 2 diabetes mellitus during , antepartum Use to monitor glucose continuously. Change every 15 days. 6 Each 3 10/23/19 25 Active insulin NPH, human isophane, (HUMULIN NPH) 100 UNIT/ML injection penIndications :Type 2 diabetes mellitus during , antepartum Inject 17 units at bedtime; may increase dose by 2 unit every 3 days if needed to keep fasting blood sugars below 95, up to max daily dose 30 units. 30 mL 3 10/23/19 25 Active insulin lispro, human, (HUMALOG; ADMELOG) 100 UNIT/ML injection penIndications :Type 2 diabetes mellitus during , antepartum Inject 10-15 minutes before eating according to carb ratio; max daily dose 60 units 60 mL 3 10/23/19 25 Active Continuous Glucose Sensor (FREESTYLE JAGUAR 3 PLUS SENSOR) MISCIndication s:Type 2 diabetes mellitus during , antepartum Use to monitor glucose continuously. Change every 15 days. 6 Each 3 09/10/19 25 025 Discontinued insulin NPH, human isophane, (HUMULIN NPH) 100 UNIT/ML injection penIndications :Type 2 diabetes mellitus during , antepartum If fasting blood sugars are 95 or higher, inject 10 units at bedtime; may increase dose by 1 unit every 2 days if needed to keep fasting blood sugars below 95, up to max daily dose 30 units. 30 mL 3 09/10/19 25 025 Discontinued insulin lispro, human, (HUMALOG; ADMELOG) 100 UNIT/ML injection penIndications :Type 2 diabetes mellitus during , antepartum Inject 10-15 minutes before eating according to carb ratio; max daily dose 60 units 60 mL 3 09/23/19 25 025 Discontinued Active Problems Problem Noted Date Diagnosed Date Type 2 diabetes mellitus during , antep artum 09/21/2024 Encounters * This document contains information received from the source organization and may not represent a complete record from that organization. Date Type Department Care Team Description 10/22/2024 11:00 AM CDT Phone Visit [place] [address] [place] [address] [address]a. [place] [address] Rachel Knight MD Type 2 diabetes mellitus during , antepartum (Primary Dx) 10/13/2024 E-Visit [place] [address] [place] [address] [address]a. [place] [address] Mychart, Generic Provider 09/22/2024 11:20 AM SUPERVISOR MAJOR APPLIANCE ASSEMBLY Telemedicine [place] [address] [place] [address] Ter[address]ineda. [place] [address] Rachel Knight MD Type 2 diabetes mellitus during , antepartum (Primary Dx) 09/10/2024 9:40 AM SUPERVISOR MAJOR APPLIANCE ASSEMBLY Telemedicine [place] [address] [place] [address]. [place], [place] [address] Rachel Knight MD Type 2 diabetes mellitus during , antepartum (Primary Dx); Pre-existing type 2 diabetes mellitus during in first trimester 09/08/2024 Telephone [place] [address] [place] [address]. [place], [place] [address] Nurse, [id number] End from Last 3 Months Social History Tobacco Use Types Packs/Day Years Used Date Smoking Tobacco: Never Smokeless Tobacco: Never Alcohol Use Standard Drinks/Week Comments Not Currently 0 (1 standard drink = 0.6 oz pur e alcohol) Comments Unknown Sex and Gender Information Value Date Recorded Sex Assigned at Not on file Legal Sex Female 8:03 AM CDT Gender Identity Not on file [...] Mass Index - - Plan of Treatment Upcoming Encounters Date Type Department Care Team (Late st Contact Info) Description 11/26/2024 2:00 PM CDT Telemedicine [place] [address] [place] [address]. [place] [address] Rachel Knight MD [address] [place] [address] 12/26/2024 1:00 PM CDT Telemedicine [place] [address] [place] [address]. [place] [address] Rachel Knight MD [address] [place] [address], [place] [address] 01/28/2025 1:40 PM CDT Telemedicine [facility] [address] Endocrinology [address] [place] [address] Rachel Knight MD [address] [place], [place] [address] Health Maintenance Due Date Last Done Comments Cervical Cancer Screening Due 1993 Diabetes: Creatinine 1993 Diabetes: Foot Exam 1993 Diabetes: Lipid Panel 1993 Diabetes: Urine Microalbumin 1993 Hep C Screening (Preventive Services) 1993 IPV (Polio) (4 of 4 - 4-dose series) 1997 06/11/1994, 03/31/1994, 01/23/1994 HIV Screening (Preventive Services) 2009 HepA (2 of 2 - 2-dose series) 03/31/2011 09/28/2010 Adult Preventive Visit 11/23/2011 HepB (1) 2012 Pneumococcal (1 of 2 - PCV) 2012 Diabetes: Eye Exam 03/11/2022 03/11/2021 COVID-19 Vaccine ( - season) 2024 Influenza (#1) 2024 05/19/2021, 10/01/2020, 04/08/2019, Additional history exists Diabetes: HGBA1C 05/08/2024 02/06/2024, , 03/23/2023 DTaP/Tdap/Td (9 - Tdap) 01/16/2033 01/17/20 23, 04/07/2021, 02/18/2019, Additional history exists Zoster/Shingles (1 of 2) 11/23/2043 HPV Vaccine Completed 03/10/2016, 01/21, 10/31/2012, Additional history exists Hib Aged Out No longer eligi ble based on patient's age to complete this topic MCV4 Aged Out No longer eligi ble based on patient's age to complete this topic Meningococcal B Aged Out No longer el igible based on patient's age to complete this topic Procedures Procedure Name Priority Date/Time Associated Diagnosis Comments JAMIA (DIABETIC EYE EXAM) 03/11/2021 from Last 3 Months or Most Recently Relevant to Health Maintenance Results * JAMIA (DIABETIC EYE EXAM) (03/11/2021) us Interface Provider DUMMY/OTHER/AR Final Resu lt from Last 3 Months or Most Recently Relevant to Health Maintenance Insurance [facility]
--- OUTSIDE RECORDS SUMMARY | 2024-10-29 09:31 | XMS_ITS | Encounter Summary ---
Author Organization [facility] Address [address] [place] [address] Care Team Providers Care Vice President Of Human Resources Name Role Phone Unavailable Primary Care Provider Unavailabl e Encounter Details Date Type Department Care Team (Late st Contact Info) Description 09/22/2024 11:20 AM LABORER VEGETABLE FARM Telemedicine [place] [id number] Endocrinology [facility] [place] [address] Rachel Knight MD [address] [place], [place] [id number] Type 2 diabetes mellitus during , antepartum (Primary Dx) Social History Tobacco Use Types Packs/Day Years Used Date Smoking Tobacco: Never Smokeless Tobacco: Never Alcohol Use Standard Drinks/Week Comments Not Currently 0 (1 standard drink = 0.6 oz pur e alcohol) Comments Unknown Sex and Gender Information Value Date Recorded Sex Assigned at Not on file Legal Sex Female 8:03 AM CDT Gender Identity Not on file Sexual Orientation Not on file documented as of this encounter Progress Notes * Rachel Knight MD - 09/22/2024 11:20 AM CST [facility] Department of Endocrinology, Diabetes and Metabolism Clinic Note Name: Amira Scruggs This visit was conducted via video. Amira was able to see me, but I was not able to see her. Reason for visit: Type 2 diabetes during HPI: Amira Scruggs is a 28 y.o. female who I visited with today for follow-up of type 2 diabetesduring . I referred her to diabetes education on 2/19/25, but she did not schedule that appointment because she has had a lot of diabetes education in the past. Current gestational age: 7 weeks 2 days Estimated due date: 05/09/25, but Amira believes she will have a 2 weeks before that Diabetes diagnosis: 2019 per Amira's report Current diabetes medications: NPH 10 units at bedtime Humalog 10 units before each meal Previous diabetes medications: Metformin 2000 mg daily: stopped during Amira is using a Freestyle Donaldo 3 Plus CGM, but I was not able to view her data today. Per her report, her glucose levels are: Fastin-110 After eating: less than 120 Amira has been double checking her glucose with fingerstick blood sugars sometimes and reports thatthey are usually very similar to the CGM glucose levels. Diet: 3 meals per day Breakfast: 1 slice of toast and yogurt (25 grams carbohydrate in the meal) Lunch and dinner are usually higher in carbohydrates Physical Examination: Neurologic: Alert, answering questions appropriately Psychiatric: Affect euthymic, thought process linear and goal-directed Assessment: Type 2 diabetes during Plan: Increase NPH to 12 units at bedtime Inject Humalog before meals 1 unit per 2.5 grams carbohydrate Insulin doses can be adjusted to target the following blood sugar goals: Fasting: less than 95 1 hour after the start of each meal: less than 140 2 hours after the start of each meal: less than 120 I sent Amira an e-mail invitation to connect her Freestyle Donaldo data to our account. Follow-up visits with me are scheduled monthly through January. Amira will schedule more appointments with me or Vera Boyle in between our monthly appointments ifneeded. She will also schedule visits about every 2 weeks from January-April. I also let Amira know that she can schedule an appointment with a clinical document improvement educator at [facility] with insulin dose adjustment in between our appointments. Rachel Knight MD Position Classification Specialist [facility] [employer] documented in this encounter Plan of Treatment Upcoming Encounters Date Type Department Care Team (Late st Contact Info) Description 11/26/2024 2:00 PM CDT Telemedicine [place] [address] [place] [address]. [place] [address] Rachel Knight MD [address] [place] [address] 12/26/2024 1:00 PM CDT Telemedicine [place] [address] [place] [address]. [place] [address] Rachel Knight MD [address] [place] [address] 01/28/2025 1:40 PM CDT Telemedicine [place] [address] [place] [address]. [place] [address] Rachel Knight MD [address] [place] [address] documented as of this encounter Visit Diagnoses Diagnosis Type 2 diabetes mellitus during , antepartum- Primary documented in this encounter
--- OUTSIDE RECORDS SUMMARY | 2024-10-29 09:31 | XMS_ITS | Encounter Summary ---
Author Organization [facility] Address [address] [place] [address]. [place] [address] Care Team Providers Care Reach Truck Operator Name Role Phone Letty Crowley MD Primary Care Provider + No Ref-Primary, Physician Unavailable [phone] Concha Klein PA-C Unavailable Eliza [place] DO Unavailable [phone] Encounter Details Date Type Department Care Team (Late st Contact Info) Description 10/09/2024 Medical Correspondence [facility] Information Management [address] [facility] [place] [facility] [address] [place] [address] Scan, Non-Provider Social History Tobacco Use Types Packs/Day Years Used Date Smoking Tobacco: Never Smokeless Tobacco: Never Alcohol Use Standard Drinks/Week Comments Not Currently 0 (1 standard drink = 0.6 oz pur e alcohol) PHQ-2 Answer Date Recorded PHQ-2 Score 1 05/09/2023 [place] Depression Scale Answer Date Recorded Last EPDS [...] Info) Description 12/08/2024 8:45 AM CDT Appointment [facility] [place] [address] [place] [address] Kaley Reese MD [address] [place] [address] 12/08/2024 9:15 AM CDT Office Visit [facility] Maternal Medicine [facility] [address] [place] [address] Kaley Reese MD [address] [place] [address] documented as of this encounter Visit Diagnoses Not on filedocumented in this encounter Additional Health Concerns Assessment Noted Time PHQ-9 Depression Total Score: 7 05/09/20 23 4:15 PM CDT documented as of this encounter Care Teams Reach Truck Operator Relationship Specialty Start Date End Date Letty Catalan MD [address] [address] PCP - General plant technician 01/13/21 No Ref-Primary, Physician 01/13/21 Concha Klein PA-C [address] [place] [address] Physician Pet Feeder Endocrinology, Diabetes, and Metabolism 10/10/22 Eliza [place] DO [address] [place] [address] Assigned OBGYN Provider 04/14/23 documented as of this encounter
--- OUTSIDE RECORDS SUMMARY | 2024-10-29 09:31 | XMS_ITS | Clinical Summary ---
Author Organization [facility] Address [address] [place] [address] Care Team Providers Care Veneer Jointer Offbearer Name Role Phone Letty Crowley MD Primary Care Provider + No Ref-Primary, Physician Unavailable [phone] Concha Klein PA-C Unavailable Eliza [place] DO Unavailable [phone] Allergies Active Allergy Reactions Criticality Noted Date Comments Cat Dander Itching Low 11/03/2020 Glycerin Rash Low 09/26/2022 Unsure if this is correct- rash from Pantene shampoo Medications cholecalciferol (VITAMIN D3) 25 mcg (1000 units) capsule 3 Active Vit-Fe Fumarate-FA ( 1+1 OR) Active nystatin (MYCOSTATIN) 733223 UNIT/GM external creamIndication s:Yeast infection of the [...] & Plan: Labs today Follow up with water resources engineer team to help with insulin dose adjustment, by next week. Follow up with me in 1 month (clinic / video / telephone) Previous delivery a ffecting 08/15/2022 2022 03/25/2023 Encounters Date Type Department Care Team Description 10/10/2024 Medical Correspondence [facility] Information Management [address] [place] [address] [address] [place] [address] Scan, Non-Provider 10/10/2024 Transcribe Orders [facility] [address] [place] [address] Kaley Randall MD related condition, antepartum (Primary Dx) 10/09/2024 Medical Correspondence [facility] [employer] [address] [place] [address] Scan, Non-Provider from Last 3 Months Immunizations Name Administration Dates Next Due DTAP (<7y) 11/20/1998, 6,06/11/1994,1993,01/23/1994 HPV Quadrivalent 02/13/2013,10/31/2012 HPV9 (Gardasil) 03/10/2016,02/13/2013,09/30/2012 HepB, Unspecified 06/11/1994,03/31/1994,01/23/19 94 Hepatitis A (Vaqta/Havrix)(P eds 12m-18y) 09/28/2010 Hepatitis B, Peds (Engerix-B/Recombivax HB) 06/11/1994,03/31/1994,01/23/1994 Influenza (H1N1) 07/28/2009 Influenza (IIV3) PF 05/26/2013,06/28/2010,2009 Influenza Vaccine >6 months,quad, PF ,04/28/2020,04/08/2019,2017,06/07/2016 MMR (MMRII) 04/07/2000,01/24/1996 Polio, Unspecified 06/11/1994,03/31/1994, 994 TDAP (Adacel,Boostrix) [...] Answer Date Recorded PHQ-2 Score 1 05/09/2023 [place] Depression Scale Answer Date Recorded Last EPDS [...] 02/06/2024 8:01 PM CDT Plan of Treatment Upcoming Encounters Date Type Department Care Team (Late st Contact Info) Description 12/08/2024 8:45 AM CDT Appointment [facility] Medicine [facility] [address] [facility] [address] [place] [phone] Kaley Reese MD [address] [place], [place] [address] 12/08/2024 9:15 AM CDT Office Visit [facility] Medicine [facility] [address] [facility] [address] [place] [phone] Kaley Reese MD [address] [place], [place] [phone] Health Maintenance Due Date Last Done Comments ADVANCE CARE PLANNING 1993 ANNUAL REVIEW OF HM ORDERS 1993 DIABETIC FOOT EXAM 1993 EYE EXAM 1993 LIPID 1993 MICROALBUMIN 1993 Pneumococcal Vaccine: Pediatrics (0 to 5 Years) and At-Risk Patients (6 to 49 Years) (1 of 2 - PCV) 2012 YEARLY PREVENTIVE VISIT 04/28/2021 04/28/2020 COVID-19 Vaccine ( season) 2024 INFLUENZA VACCINE (#1) 2024 , 04/28/2020, 04/08/2019, Additional history exists A1C 05/08/2024 02/06/2024, 09/0 07/2022, 09/26/2022 PAP 07/01/2024 07/01/2021 PHQ-2 (once per calendar year) 2024 05/09/2023, 05/09/2023, 03/14/2023 BMP 02/05/2025 02/06/2024, 09/0 02/2023, 12/12/2020 DTAP/TDAP/TD IMMUNIZATION (11 - Td or Tdap) 01/16/2033 01/16/2023, 04/07/2021, 02/18/2019, Additional history exists ZOSTER IMMUNIZATION (1 of 2) 11/23/2043 HPV IMMUNIZATION Completed 03/10/2016, , 02/13/2013, Additional history exists HEPATITIS C SCREENING Completed 04/01/2019 HIV SCREENING Completed 08/15/2022, 07/24, 06/09/2019 HEPATITIS B IMMUNIZATION Completed 025, 06/11/1994, 06/11/1994, Additional history exists MENINGITIS IMMUNIZATION Aged Out No l onger eligible based on patient's age to complete this topic Procedures Procedure Name Priority Date/Time Associated Diagnosis Comments BASIC METABOLIC PANEL STAT 02/06/2024 8:44 PM CDT HEMOGLOBIN A1C Add-On 02/06/2024 8:44 PM CDT HIV 1&2 ANTIBODY (EXTERNAL RESULT) Routine 08/15/2022 9:00 AM TRACTOR CRANE ENGINEER from Last 3 Months or Most Recently Relevant to Health Maintenance Results * (ABNORMAL) Hemoglobin A1c (02/06/2024 8:44 PM CDT) Hemoglobin A1C 9.8(H) <5.7 % 02/06/2024 10:18 PM CDT LABORATORY Comment: Normal <5.7% Prediabetes 5.7-6.4% Diabetes 6.5% or higher Note: Adopted from ADA consensus guidelines. Blood BLOOD SPECIMEN / Unknown Venipuncture / Unknown 02/06/2024 8:44 PM CDT 02/06/2024 8:48 PM CDT us Wayne Maza MD LAB - BLOOD ORDERABLES Final Result [facility] Acute Care Lab [address] [facility] Lab (1st floor, no room number) [place] [address], [facility] * (ABNORMAL) Basic metabolic panel [...] 9:17 PM CDT LABORATORY Comment:eGFR calculated usin 2020 CKD-EPI equation. Calcium 9.2 8.8 - 10.4 mg/dL 02/06/2024 9:17 PM CDT LABORATORY Comment:Reference intervals for this test were updated on 02/05/2024 to reflect our healthy population more accurately. There may be differences in the flagging of prior results with similar values performed with this method. Those prior results can be interpreted in the context of the updated reference intervals. Glucose 472(H) 70 - 99 mg/dL 02/06/2024 9:17 PM CDT LABORATORY Blood BLOOD SPECIMEN / Unknown Venipuncture / Unknown 02/06/2024 8:44 PM CDT 02/06/2024 8:48 PM CDT us Wayne Maza MD LAB - BLOOD ORDERABLES Final Result LABORATORY [facility] Acute Care Lab [address] [facility] Lab (1st floor, no room number) [place] [address], [facility] * HIV-1 Antibody (External Result) (08/15/2022 9:00 AM TRACTOR CRANE ENGINEER) HIV 1&2 Antibody (External) Negative Nonreactive EXTERNAL LAB 08/15/2022 9:00 AM TRACTOR CRANE ENGINEER us Patient Reported LAB - HIM EXTERNAL RESULT Final Result EXTERNAL LAB External Lab from Last 3 Months or Most Recently Relevant to Health Maintenance Insurance [employer] Advance Directives For more information, please contact: [phone] * Full Code (Latest Code Status on [...] patie nt/ legal decision maker Care Teams Veneer Jointer Offbearer Relationship Specialty Start Date End Date Letty Crowley MD [address] [address] PCP - General ophthalmologist retina specialist 01/13/21 No Ref-Primary, Physician 01/13/21 Concha Klein PA-C [address] [place] [id number] Physician Ventilation Mechanic Endocrinology, Diabetes, and Metabolism 10/10/22 Eliza [place] DO [address] [phone] Assigned OBGYN Provider 04/14/23
--- OUTSIDE RECORDS SUMMARY | 2024-10-29 09:31 | XMS_ITS | Encounter Summary ---
Author Organization [place] Address [address] [place] [address] Care Team Providers Care Manager Store Name Role Phone Letty Crowley MD Primary Care Provider + No Ref-Primary, Physician Unavailable [phone] Concha Klein PA-C Unavailable Eliza [place] DO Unavailable [phone] Concha Klein PA-C Unavailable Reason for Visit * Reason Onset Date Comments Symptoms 05/18/2023 Rash by C sectio n scar Encounter Details Date Type Department Care Team (Late st Contact Info) Description 05/18/2023 Telephone [facility] [address] [place] [address] Eliza [place] DO [address] [place] [address] Symptoms (Rash by C section scar) Social History Tobacco Use Types Packs/Day Years Used Date Smoking Tobacco: Never Smokeless Tobacco: Never Alcohol Use Standard Drinks/Week Comments Not Currently 0 (1 standard drink = 0.6 oz pur e alcohol) PHQ-2 Answer Date Recorded PHQ-2 Score 1 05/09/2023 [place] Depression Scale Answer Date Recorded Last EPDS [...] Kathy Gordillo - 05/18/2023 2:53 PM CDT [facility] Call Center Phone Message May a detailed [...] around C section scar Action Taken: Other: [facility] Travel Screening: Not Applicable documented in this encounter Plan of Treatment Upcoming Encounters Date Type Department Care Team (Late st Contact Info) Description 12/08/2024 8:45 AM CDT Appointment [facility] [place] [address] [facility] [address] [place] [address] Kaley Reese MD [address] [place] [address] 12/08/2024 9:15 AM CDT Office Visit [facility] [place] [address] [facility] [address] [place] [address] Kaley Reese MD [address] [place] [address] documented as of this encounter Visit Diagnoses Not on filedocumented in this encounter Additional Health Concerns Assessment Noted Time PHQ-9 Depression Total Score: 7 05/09/20 23 4:15 PM CDT documented as of this encounter Care Teams Manager Store Relationship Specialty Start Date End Date Letty Catalan MD [address] [place] [address] PCP - General professor of apologetics 01/13/21 No Ref-Primary, Physician 01/13/21 Concha Klein PA-C [address] [place] [address] Physician Voip Network Engineer Endocrinology, Diabetes, and Metabolism 10/10/22 Eliza [place] DO [address] [facility] [address] [place] [address] Assigned OBGYN Provider 04/14/23 Concha Klein PA-C [address] [place] [address] Assigned Endocrinology Provider 08/24/23 06/13/24 documented as of this encounter
--- OUTSIDE RECORDS SUMMARY | 2024-10-29 09:31 | XMS_ITS | Encounter Summary ---
Author Organization [place] Address [address] [place] [address] Care Team Providers Care Auto Vinyl Top Installer Name Role Phone Letty Crowley MD Primary Care Provider + No Ref-Primary, Physician Unavailable [phone] Concha Klein PA-C Unavailable Eliza [place] DO Unavailable [phone] Cesar Castro MD Unavailable [phone] Concha Klein PA-C Unavailable Encounter Details Date Type Department Care Team (Late st Contact Info) Description 2022 MyC Medical Advice [facility] [address] [place] [address] Hernan Carver Social History Tobacco Use [...] Info) Description 12/08/2024 8:45 AM CDT Appointment [facility] [place] [address] [place] [phone] Kaley Reese MD [address] [place] [address] 12/08/2024 9:15 AM CDT Office Visit [facility] Maternal Medicine [facility] [address] [place] [address] Kaley Reese MD [address] [place] [address] documented as of this encounter Visit Diagnoses Not on filedocumented in this encounter Care Teams Auto Vinyl Top Installer Relationship Specialty Start Date End Date Letty Crowley MD [address] [address] PCP - General airline pilot flight instructor 01/13/21 No Ref-Primary, Physician 01/13/21 Concha Klein PA-C [address] [place] [address] Physician Health Care Facility Administrator Endocrinology, Diabetes, and Metabolism 10/10/22 Eliza [place]man DO [address] [facility] [address] [place] [address] Assigned OBGYN Provider 04/14/23 Cesar Castro MD [address] [place] [address] Assigned OBGYN Provider 03/31/23 Concha Klein PA-C [address] [place] [address] Assigned Endocrinology Provider 08/24/23 06/13/24 documented as of this encounter
--- OUTSIDE RECORDS SUMMARY | 2024-10-29 09:31 | XMS_ITS | Encounter Summary ---
Author Organization [facility] Address [address] [place] [address] Care Team Providers Care Inspector Printed Circuit Boards Name Role Phone Unavailable Primary Care Provider Unavailabl e Encounter Details Date Type Department Care Team (Late Contact Info) Description 10/13/2024 E-Visit [facility] [address] Endocrinology [address] [facility] [place] [address] [place] [address] Social History Tobacco Use Types Packs/Day Years [...] Encounters Date Type Department Care Team (Late Contact Info) Description 11/26/2024 2:00 PM CDT Telemedicine [facility] [address] End[address] [facility] [place] [address] Rachel Knight MD [address] [place] [address] 12/26/2024 1:00 PM CDT Telemedicine [facility] 38[address] Endocrinology [address] [facility] [place] [address] Rachel Knight MD [address] [place] [address] 01/28/2025 1:40 PM CDT Telemedicine [facility] 38[address] Endocrinology [address] [facility] [place] [address] Rachel Knight MD [facility] [place], [place] [address] documented as of this encounter Visit Diagnoses Not on filedocumented in this encounter
--- OUTSIDE RECORDS SUMMARY | 2024-10-29 09:31 | XMS_ITS | Clinical Summary ---
Author Organization [facility] Address [address] [place] [address] Care Team Providers Care Cane Stripper Name Role Phone Gisela Piedra MD Primary [...] times daily with meals. 360 Tablet 1 5 Active Active Problems Problem Noted Date Diagnosed [...] Encounters Date Type Department Care Team Description 08/06/2024 Telephone [facility] [address] [place] [address] Gisela Piedra MD Medication Management from Last 3 Months Immunizations Immunization Administration Dates Next Due DTaP 11/20/1998, 6,06/11/1994,03/31/1994, 01/23/1994 HPV 9 (Gardasil 9) 03/10/2016 Hepatitis A (Peds) 09/28/2010 Hepatitis B (Peds) 06/11/1994,03/31/1994, 994 Hepatitis B, Unspecified 06/11/1994,03/31/1994,0 01/23/1994 Human Papilloma Virus Vaccine 02/13/2013, 013 Influenza A (H1N1), Inactivated 07/28/2009 Influenza, IIV3 (Age >=3 years) 05/26/2013,06/28,07/28/2009 Influenza, IIV4 05/19/2021, 0,04/08/2019,08/02/2017, 06/07/2016 MMR 04/07/2000,01/24/1996 Polio Virus, Unspecified 06/11/1994,03/31/1994,0 01/23/1994 Td (Age >=7 Years) 03/18/2009 Tdap 01/16/2023,,02/18/2019,03/18/2008, 03/18/2008 Family History Medical History Relation Name [...] = 0.6 oz pur e alcohol) Occasioanlly PHQ-2 Answer Date Recorded PHQ-2 TOTAL SCORE [...] is your housing situation today? 1 11/06/2023 Utilities Answer Date Recorded Do you have trouble paying f or utilities (for example, heat, electricity, water, phone)? 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 Catalan 2022 Term 39w 1d 4.27 kg (9 lb 6.6 oz) F CS-Un spec Epidur al N Livin g 8 9 Karin Delivery Location:[facility] ( [facility] AND DELIVERY) Last Filed Vital Signs Vital Sign Reading Time Taken Comments Blood Pressure 110/68 07/30/2024 5:43 PM SCHOOL SPEECH THERAPIST Pulse 80 07/30/2024 5:43 PM SCHOOL SPEECH THERAPIST Temperature 36.1 C (97 F) 11/06/2023 4:18 PM CDT Respiratory Rate 16 11/06/2023 4:18 PM CDT Oxygen Saturation 97% 02/27/2024 2:3 7 PM CDT Inhaled Oxygen Concentration - - Weight 74.1 kg (163 lb 6.4 oz) 07/30/2024 5:43 PM SCHOOL SPEECH THERAPIST Height 153.7 cm (5' 0.5) 11/06/2023 4: 18 PM CDT WITH SHOES ON Body Mass Index 31.39 11/06/2023 4:18 PM CDT Plan of Treatment Health Maintenance Due Date Last Done Comments Pneumococcal series for age 6-49 (1 of 2 - PCV) 2012 COVID-19 vaccine series ( - season) 2024 Pap test for age 21-65 07/01/2024 , 04/28/2020, 04/28/2020, Additional history exists BMI (ht and wt on same day) for age 18+ 11/05/2024 11/06/2023, 07/26/2022, 05/31/2022, Additional history exists Depression screening for age 12+ 11/05/2024 11/06/2023, 05/31/2022, 05/31/2022, Additional history exists Influenza Vaccine (Season Ended) 2025 05/19/2021, 04/28/2020, 04/08/2019, Additional history exists Tetanus booster 01/16/2033 01/16/2023, [...] Procedure Name Priority Date/Time Associated Diagnosis Comments MEDICAL BILLER/CODER THIN PREP PAP SCREEN IMAGED Routine 07/01/2021 9:50 AM SCHOOL SPEECH THERAPIST ANTI HIV 1/2 Routine 06/09/2019 2:58 PM SCHOOL SPEECH THERAPIST Screen for STD (sexually transmitted disease) ACUTE HEPATITIS PANEL Add On 04/01/2019 10:39 AM CDT Adverse food reaction, initial encounter from Last 3 Months or Most Recently Relevant to Health Maintenance Results * MEDICAL BILLER/CODER THIN PREP PAP SCREEN IMAGED (07/01/2021 9:50 AM SCHOOL SPEECH THERAPIST) Case Report Gynecologic Cytology Report Case: [id number] Authorizing Provider: Letty Pinedo Collected: 07/01/2021 0950 MD Cherise Ordering Location: [facility] Received: 07/04/2021 0841 First Screen: Eliza Hidalgo Rescreen: Indira Oh Specimen: MEDICAL BILLER/CODER ThinPrep Vial Screening, Cervical/Vaginal 07/19/2021 12:16 PM SCHOOL SPEECH THERAPIST [employer] LABORAT[facility]-C ENTRAL LABORATORY INTERPRETATION/ RESULT NEGATIVE FOR INTRAEPITHELIAL LESION OR MALIGNANCY (NIL) (none) 07/19/2021 12:16 PM SCHOOL SPEECH THERAPIST [employer] LABORATORY-C ENTRAL LABORATORY at 1216 SCHOOL SPEECH THERAPIST SPECIMEN ADEQUACY Satisfactory for evaluation Endocervical component present 07/19/2021 12:16 PM SCHOOL SPEECH THERAPIST [facility] LAB[facility] HPV REQUEST HPV if ASCUS 07/19/2021 12:16 PM SCHOOL SPEECH THERAPIST [facility] EN[facility] LAB[facility] Last Pap Date 04/28/2020 07/19/2021 12:16 PM SCHOOL SPEECH THERAPIST [facility] Last Pap Result ASCUS 12:16 PM SCHOOL SPEECH THERAPIST [facility] Comment:neg hpv Additional Information 07/19/2021 12:16 PM SCHOOL SPEECH THERAPIST [facility] Comment: Interpreted at [facility] - [address], [place] [address] Automated Review Successful 07/19/2021 12:16 PM SCHOOL SPEECH THERAPIST [facility] Comment:Specimen processed s uccessfully by automated wire repairer device, ThinPrep Imaging System, [employer] Note The pap test is a screening technique, not a diagnostic procedure. It is used primarily to screen for squamous cancers and precursor lesions. Published studies have shown that it is subject to both false negative and false positive results. The pap test should not be used as the sole means to diagnose or exclude pre-malignant and malignant lesions. 07/19/2021 12:16 PM SCHOOL SPEECH THERAPIST [facility] Other (Cervical/Vagina l) 07/01/2021 9:50 AM SCHOOL SPEECH THERAPIST 07/04/2021 8:41 AM SCHOOL SPEECH THERAPIST Letty Pinedo MD PATHOLOGY/CYTOLOGY Final Result [facility] [address] [place] [address], [place] * ANTI HIV 1/2 (06/09/2019 2:58 PM SCHOOL SPEECH THERAPIST) HIV-1/HIV-2 ANTIBODY Non-Reacti ve Non-Reacti ve 06/09/2019 7:57 PM SCHOOL SPEECH THERAPIST [facility] TR[facility] LABORATORY Comment:HIV-1 p24 and HIV-1/ HIV-2 Ab not detected. Blood BLOOD SPECIMEN / Unknown Venipuncture / Unknown 06/09/2019 2:58 PM SCHOOL SPEECH THERAPIST 06/09/2019 2:58 PM SCHOOL SPEECH THERAPIST [employer] SUE SEND OUTS Final Result [facility] [address] [place] [address], * ACUTE HEPATITIS PANEL (04/01/2019 10:39 AM CDT) HEPATITIS C ANTIBODY Non-Reactive Non-Reactive 04/02/2019 1:30 PM CDT [facility] EN[facility] LABORATORY Comment:Antibodies to HCV no t detected; does not exclude the possibility of exposure to HCV. IGM ANTI HAV Non-Reactive Non-Reactive 04/02/20 19 1:30 PM CDT [facility] HBSAG Nonreactive Nonreactive 04/02/2019 1:30 PM CDT [facility] IGM ANTI HBC Non-Reactive Non-Reactive 04/02/20 19 1:30 PM CDT [facility] Blood BLOOD SPECIMEN / Unknown Venipuncture / Unknown 04/01/2019 10:39 AM CDT 04/01/2019 10:39 AM CDT Narrative [facility] - 04/02/2019 1:30 PM CDT Anti-HBc IgM not detected. Does not exclude the possibility of exposure to or infection with HBV. Omar Don MD SEND OUTS Final Result Performing Organization Address City/[facility]/ZIP Co de Phone Number [facility] [address] [place] [address], from Last 3 Months or Most Recently Relevant to Health Maintenance Insurance [facility] [place] [id number] Advance Directives * Full Code (Latest Code Status on File) Date Activated Date Inactivated Comments 05/25/2017 6:51 PM 05/29/2017 8:38 PM Care Teams Cane Stripper Relationship Specialty [place] [address] [facility] [place] [address] PCP - General Family Practice 08/29/23
--- OUTSIDE RECORDS SUMMARY | 2024-10-29 09:31 | XMS_ITS | Encounter Summary ---
Author Organization [facility] Address [address] [place] [address] Care Team Providers Care Machine Sewer Name Role Phone Letty Crowley MD Primary Care Provider + No Ref-Primary, Physician Unavailable [phone] Concha Klein PA-C Unavailable Eliza Blackman DO Unavailable [phone] Cesar Castro MD Unavailable [phone] Concha Klein PA-C Unavailable Encounter Details Date Type Department Care Team (Late st Contact Info) Description 03/13/2023 MyC Medical Advice [facility] [address] [place] [address] Milagros Steward, RN Social History [...] Info) Description 12/08/2024 8:45 AM CDT Appointment [facility] [place] [address] [place] [phone] Kaley Reese MD [address] [place] [address] 12/08/2024 9:15 AM CDT Office Visit [facility] [address] [place] [phone] Kaley Reese MD [address] [place] [address] documented as of this encounter Visit Diagnoses Not on filedocumented in this encounter Care Teams Machine Sewer Relationship Specialty Start Date End Date Letty Crowley MD [address] [address] PCP - General cleaning associate 01/13/21 No Ref-Primary, Physician 01/13/21 Concha Klein PA-C [address] [place], [place] [address] Physician Bin Piler Endocrinology, Diabetes, and Metabolism 10/10/22 Eliza Blackman DO [address] [address] Assigned OBGYN Provider 04/14/23 Cesar Castro MD [address] [place] [address] Assigned OBGYN Provider 03/31/23 Concha Klein PA-C [address] [place], [place] [address] Assigned Endocrinology Provider 08/24/23 06/13/24 documented as of this encounter
--- OUTSIDE RECORDS SUMMARY | 2024-10-29 09:31 | XMS_ITS | Encounter Summary ---
Author Organization [facility] Address [address] [place] [address] Care Team Providers Care Cement Or Concrete Finishing Supervisor Name Role Phone Unavailable Primary Care Provider Unavailabl e Reason for Referral * Consult/Transfer Care (Routine) - New Request Specialty Diagnoses / Procedures Referred By Evans t Referred To Contact Diagnoses Type 2 diabetes mellitus during , antepartum Rachel Knight MD [address] [place] [address] Phone: tel: fax: Referral ID Status Reason Start Date Expiration Date V isits Requested Visits Authorized [id number] New Request 09/10/2024 12/10/2025 1 1 Scheduling Instructions Your clinician has recommended an appointment with [facility]. You may call [phone] to schedule your appointment. We suggest you call your health insurance company about your coverage and benefits for this appointment. Question Answer Appointment Urgency? Non-Urgent Reason for visit Gestational Diabetes ([place], [place] only): Individual Education / Management Needs (Additional hours may be needed) Medication Start/Educator to Choose, Initiate and Adjust per Standing Order; DM Education Participation Barriers (To Small Group Ed)? None Certification statement I certify that I am managing this patient s condition and education Plan of Care Diabetes self-management training includes: healthy eating, physical activity, monitoring, medications, reducing risks, problem-solving, healthy coping. Changes to plan should be documented in comment box. Additional details found in standing order. Individuals may be eligible for both DSMT and MNT services in the same year. I approve the delivery of initial MNT (3hrs) and/or annual follow-up MNT (2hrs). Yes Comments Type 2 diabetes during , will likely need help with insulin dose adjustments Other Barriers or Additional Comments: Last 2 A1c Performed in lab: Hemoglobin A1C (%) Date Value 02/06/2024 9.8 (H) 03/23/2023 6.7 (H) Last 2 Point of Care A1c: No results found for: [id number] AGE GARAGE ATTENDANT Encounter Details Date Type Department Care Team (Late st Contact Info) Description 09/10/2024 9:40 AM STORAGE GARAGE ATTENDANT Telemedicine [place] [address] Endocrinology [facility] [place], [place] [phone] Rachel Knight MD [address] [place], [place] [id number] Type 2 diabetes mellitus during , antepartum (Primary Dx); Pre-existing type 2 diabetes mellitus during in first trimester Social History Tobacco Use Types Packs/Day Years [...] Progress Notes * Rachel Knight MD - 09/10/2024 9:40 AM CST [facility] Department of Endocrinology, Diabetes and Metabolism Clinic Note Name: Amira Scruggs This visit was conducted via video. Reason for visit: Type 2 diabetes during HPI: Amira Scruggs is a 28 y.o. female referred for type 2 diabetes during . Current gestational age: about 6 weeks, has not had soft work wrapper examiner appointment yet Diabetes diagnosis: 2019 per Amira's report Current diabetes medications: Metformin 2000 mg daily Previous diabetes medications: NPH and regular insulin during previous Humalog Physical Examination: General: Well-appearing Neck: No visible thyroid enlargement Respiratory: Breathing comfortably Neurologic: Alert, answering questions appropriately Psychiatric: Affect euthymic, thought process linear and goal-directed Assessment: Type 2 diabetes during I reviewed the risks of hyperglycemia during with Amira, lifestyle changes that can help control glucose, uncertainty regarding the safety of metformin during , and a plan for insulin initiation as outlined below if glucose levels are above targets. Plan: Stop metformin. I have prescribed Freestyle Donaldo 3+ CGM since Amira has difficulty checking blood sugars consistently. I have recommended that she check fingerstick blood sugars when she is able to since CGM glucose is not as accurate. I reviewed the following glucose targets with her: Check blood sugars fasting and 1 or 2 hours after the start of each meal. Blood sugar goals: Fasting: less than 95 1 hour after the start of each meal: less than 140 2 hours after the start of each meal: less than 120 If fasting glucose is 95 or higher for 2 days in a row, start NPH insulin 10 units at bedtime. Increase dose by 1 unit every 2 days if needed to keep fasting blood glucose below 95. If post-meal glucose values are above goals, start Humalog 4 units injected 10- 15 minutes before meals. These doses can be increased by 1 unit at a time if needed to achieve postprandial targets. I have ordered a diabetes education referral for close follow-up during because I suspectAmira will need assistance with insulin dose adjustments. Monthly appointments in our department are scheduled throughout . Rachel Knight MD Lathe Operator [facility] AGE GARAGE ATTENDANT AGE GARAGE ATTENDANT documented in this encounter Plan of Treatment Upcoming Encounters Date Type Department Care Team (Late st Contact Info) Description 11/26/2024 2:00 PM CDT Telemedicine [place] [address] [place] [address]. [place] [address] Rachel Knight MD [address] [place] [address] 12/26/2024 1:00 PM CDT Telemedicine [place] [address] [place] [address]. [place] [address] [place] [address] [place] [address] 01/28/2025 1:40 PM CDT Telemedicine [place] [address] [place] [address]. [place] [address] Rachel Knight MD [address] [place] [address] Scheduled Referrals Name Type Priority Associated Diagnoses Orde r Schedule Diabetes Education and MNT - Adult/Peds Referral Routine Type 2 diabetes mellitus during , antepartum Ordered: 09/10/2024 documented as of this encounter Visit Diagnoses Diagnosis Type 2 diabetes mellitus during , antepartum- Primary Pre-existing type 2 diabetes mellitus during in first trimester documented in this encounter
--- OUTSIDE RECORDS SUMMARY | 2024-10-29 09:31 | XMS_ITS | Encounter Summary ---
Author Organization [facility] Address [address] [place] [address] Care Team Providers Care Art Therapist Name Role Phone Unavailable Primary Care Provider Unavailabl e Encounter Details Date Type Department Care Team (Late st Contact Info) Description 10/22/2024 11:00 AM CDT Phone Visit [place] [phone] Endocrinology [address] [facility]. [place], [place] [phone] Rachel Knight MD [address] [place], [place] [phone] Type 2 diabetes mellitus during , antepartum [...] Progress Notes * Rachel Knight MD - 10/22/2024 11:00 AM CDT [facility] Department of Endocrinology, Diabetes and Metabolism Clinic Note Name: Amira Scruggs This visit was conducted by audio-only because although I was capable of completing the visit through an interactive telecommunications system, the patient either did not consent to or was not capable of using video technology. Total time of visit with the patient was approximately 5 minutes. Reason for visit: Type 2 diabetes during HPI: Amira Scruggs is a 28 y.o. female who I visited with today for follow-up of type 2 diabetesduring . Current gestational age: 11 weeks 4 days Estimated due date: 05/09/25, but Amira believes she will have a 2 weeks before that Diabetes diagnosis: 2019 per Amira's report Current diabetes medications: NPH 12-15 units at bedtime Humalog 1 unit per 2 grams carbohydrate before each meal Previous diabetes medications: Metformin 2000 mg daily: stopped during Freestyle Donaldo CGM data from 10/02-10/15 were reviewed: Average glucose was 114 with 26.8% variability. GMI 6% Time in range: 0% <54, 2% 54-69, 93% 70-180, 5% 181-250, 0% >250 mg/dL. Glucose waveforms showed fasting levels ranging from the 60s-low 100s and postprandial values sometimes rising to the low 200s, but they decreased quickly most of the time. The postprandial elevations typically occurred in the afternoon and evening hours. Amira has been double checking her glucose with fingerstick blood sugars sometimes and reports thatthey are pretty very similar to the CGM glucose levels. Her fasting glucose levels have often been in the low 100s recently, but her postprandial glucose levels have usually been below 120 mg/dL 2 hours after eating. She has had some glucose levels as low as the 60s after eating in the setting of physical activity such as walking or taking care of her kids. Diet: 3 meals per day, usually 15-20 grams carbohydrates per meal Physical Examination: Neurologic: Alert, answering questions appropriately Psychiatric: Affect euthymic, thought process linear and goal-directed Assessment/Plan: Type 2 diabetes during Increase NPH to 17 units at bedtime. Continue Humalog before meals 1 unit per 2 grams carbohydrate for most meals, but decrease pre-mealdose by 2-3 units or change carb ratio to 1 unit per 2.5 grams carbohydrate before meals that will be followed by known physical activity Insulin doses can be adjusted to target the following blood sugar goals: Fasting: less than 95 1 hour after the start of each meal: less than 140 2 hours after the start of each meal: less than 120 Follow-up visits with me are scheduled monthly through January. Amiar will schedule more appointments with me or Vera Boyle in between our monthly appointments ifneeded. Amira is aware that she can schedule an appointment with a breastfeeding educator at any time for help with insulin dose adjustment in between our appointments. Rachel Knight MD [facility] * Bonnie Galindo RN - 10/22/2024 11:00 AM CDT Reported Glucose Results: Date Fasting 1-2 hr post Pre-lunch 1-2 hr post Pre-dinner 1-2 hr post HS 10/17 120 10/18 10/19 10/20 10/21 142 109 Patient Concerns: Donaldo fell off 5 days ago-10/15/24. * Bonnie Galindo RN - 10/22/2024 11:00 AM CDT Images from the original note were not included. documented in this encounter Plan of Treatment Upcoming Encounters Date Type Department Care Team (Late st Day [facility]) Description 11/26/2024 2:00 PM CDT Telemedicine [place] [address] [place] [address]. [place] [address] Rachel Knight MD [address] [place] [address] 12/26/2024 1:00 PM CDT Telemedicine [place] [address] [place] [address]. [place] [address] Rachel Knight MD [address] [place] [address] 01/28/2025 1:40 PM CDT Telemedicine [place] [address] [place] [address]. [place] [address] Rachel Knight MD [address] [place] [address] Scheduled Orders Name Type Priority Associated Diagnoses Orde r Schedule HgbA1c - Collect in Lab Lab Routine Type 2 diabetes mellitus during , antepartum Expected: 10/13/2024, Expires: 04/11/2025 Albumin/Creatinine Ratio,Random Urine Lab Routine Type 2 diabetes mellitus during , antepartum Expected: 10/13/2024, Expires: 01/11/2025 documented as of this encounter Visit Diagnoses Diagnosis Type 2 diabetes mellitus during , antepartum- Primary documented in this encounter
--- OUTSIDE RECORDS SUMMARY | 2024-10-29 09:31 | XMS_ITS | Encounter Summary ---
Author Organization [place] Address [address] [place] [address] Care Team Providers Care Banking Center Manager Name Role Phone Letty Crowley MD Primary Care Provider + No Ref-Primary, Physician Unavailable [phone] Concha Klein PA-C Unavailable Eliza Blackman DO Unavailable [phone] Reason for Referral * Diagnostic Imaging Ultrasound (Routine) - Pending Review Specialty Diagnoses / Procedures Referred By Evans t Referred To Contact Radiology. Diagnoses related condition, antepartum Procedures [facility] US Comprehensive Single Kaley Reese MD [address] [place] [address] Phone: tel: fax: Referral ID Status Reason Start Date Expiration Date V isits Requested Visits Authorized [id number] Pending Review 10/10/2024 10/10/2025 1 1 * Consultation (Routine: Next available opening) - Pending Review Specialty Diagnoses / Procedures Referred By Evans quick Referred To Contact Diagnoses related condition, antepartum Kaley Reese MD [address] [place] [address] Phone: tel: fax: [facility] [place] [address] [facility] [address] [place] [address] Phone: tel: fax: Referral ID Status Reason Start Date Expiration Date V isits Requested Visits Authorized [id number] Pending Review 10/10/2024 10/10/2025 1 1 Question Answer Preferred Location: [facility] - [place] Working Due Date: 05/09/2025 US Ordering Instructions: If US ONLY is requested, select appropriate US Order and DO NOT order MFM Consult. Reason for Referral: Ultrasound Ultrasound - Includes Interpretation/Recommendations (*indicates inclusion of genetic counseling): Comprehensive US (>= 18w0d GA) Indication (* indicates inclusion of genetic counseling): Other (enter details in Comments) - type 2 diabetes Fax number results need to be sent to: Kaley Foy, [facility], Comments There is no height or weight on file to calculate BMI. >> Patient may proceed with recommendations for further testing as directed by the Maternal Medicine Specialist >> >> If requesting Echo: MFM will determine appropriate location for exam due to indication. Please be aware that coverage of these services is subject to the terms and limitations of your health insurance plan. Call member services at your health plan with any benefit or coverage questions. Encounter Details Date Type Department Care Team (Latest Contact Info) Description 10/10/2024 Transcribe Orders [facility] [address] [address] Kaley Reese MD [address] [place] [address] related condition, antepartum (Primary Dx) Social History Tobacco Use Types Packs/Day Years Used Date Smoking Tobacco: Never Smokeless Tobacco: Never Alcohol Use Standard Drinks/Week Comments Not Currently 0 (1 standard drink = 0.6 oz pur e alcohol) PHQ-2 Answer Date Recorded PHQ-2 Score 1 05/09/2023 [place] Depression Scale Answer Date Recorded Last EPDS [...] Info) Description 12/08/2024 8:45 AM CDT Appointment [facility] [place] [address] [facility] [facility] [address] [place] [address] Kaley Reese MD [address] [place], [place] [address] 12/08/2024 9:15 AM CDT Office Visit [facility] [address] [facility] [address] [place] [address] Kaley Reese MD [address] [place], [place] [address] Scheduled Orders Name Type Priority Associated Diagnoses Orde r Schedule MFM US Comprehensive Single Imaging Routine related condition, antepartum Expected: 12/08/2024 (Approximate), Expires: 08/12/2025 Scheduled Referrals Name Type Priority Associated Diagnoses Orde r Schedule [facility]tr Referral - Referral Routine: Next available opening related condition, antepartum Expected: 10/10/2024 (Approximate), Expires: 04/08/2025 documented as of this encounter Visit Diagnoses Diagnosis related condition, antepartum- Primary documented in this encounter Additional Health Concerns Assessment Noted Time PHQ-9 Depression Total Score: 7 05/09/20 23 4:15 PM CDT documented as of this encounter Care Teams Banking Center Manager Relationship Specialty Start Date End Date Letty Crowley MD [address] [address] PCP - General airline operations agent 01/13/21 No Ref-Primary, Physician 01/13/21 Concha Klein PA-C [address] [place] [address] Physician Qlikview Developer Endocrinology, Diabetes, and Metabolism 10/10/22 Eliza Blackman DO [address] [address] Assigned OBGYN Provider 04/14/23 documented as of this encounter
[2024-10-29 09:39] VITALS: BP 117/64; PULSE 71; RESP 16; TEMP 36.6; O2SAT 99; BMI 33.2
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
--- NOTE | 2024-10-29 09:54 | PC.NURSE ---
MD performed a pelvic exam. Phlebotomist Associate was present during exam. Patient tolerated well.
--- NOTE | 2024-10-29 10:11 | CRLHL7_ITS ---
For Patients: As a result of the Century Cures Act, medical imaging exams and procedure reports are released immediately into your electronic medical record. You may view this report before your referring provider. If you have questions, please contact your health care provider. Indication: Bleeding Technique: Transabdominal ultrasound examination of the pelvis was performed. Grayscale imaging was provided. M-mode Doppler was performed to document cardiac activity. No additional Doppler was performed regarding the ovaries. Comparison: September 16, 2024 Findings: There is a single live intrauterine . The crown-rump length measurement of 7.1 centimeters corresponding to 13 weeks and 2 days which is concordant to the age based on the prior study. Estimated date of delivery is 05/04/2025. heart rate is 167 beats per minute which is normal. Average gestational sac size is 6.3 centimeters. The ovaries are normal in size. Grayscale appearance is normal. The right ovary measures 2.7 x 2.3 x 3.4 centimeters and the left ovary measures 2.7 x 2.2 x 2.9 centimeters. There is a relatively large subchorionic hemorrhage measuring 8.8 x 7.4 x 1.6 centimeters. Impression: 1. Single live intrauterine at 13 weeks and 2 days with estimated date of delivery of 05/04/2025. Concordant with the age protected by the prior ultrasound scan. 2. heart rate normal at 167 beats per minute which is normal. 3. Relatively large subchorionic hemorrhage measuring 8.8 x 7.4 x 1.6 centimeters. 4. Normal-appearing ovaries. Dictated by Ayden Santos MD @ 10/29/2024 10:56:51 AM (Electronically Signed)
--- OUTSIDE RECORDS SUMMARY | 2024-10-29 10:21 | XMS_ITS | Encounter Summary ---
Author Organization [place] Address [address] [place] [address]. [place] [address] Care Team Providers Care Director Geothermal Operations Name Role Phone Letty Crowley MD Primary Care Provider + No Ref-Primary, Physician Unavailable [phone] Concha Klein PA-C Unavailable Eliza Blackman DO Unavailable [phone] Encounter Details Date Type Department Care Team (Late st Contact Info) Description 10/09/2024 Medical Correspondence [facility] Information Management [address] [facility] [address] [place] [address] Scan, Non-Provider Social History Tobacco Use Types Packs/Day Years Used Date Smoking Tobacco: Never Smokeless Tobacco: Never Alcohol Use Standard Drinks/Week Comments Not Currently 0 (1 standard drink = 0.6 oz pur e alcohol) PHQ-2 Answer Date Recorded PHQ-2 Score 1 05/09/2023 [place] Depression Scale Answer Date Recorded Last EPDS [...] Info) Description 12/08/2024 8:45 AM CDT Appointment [facility] [place] [address] [place] [address] Kaley Reese MD [address] [place] [address] 12/08/2024 9:15 AM CDT Office Visit [facility] [address] [place] [address] Kaley Reese MD [address] [place] [address] documented as of this encounter Visit Diagnoses Not on filedocumented in this encounter Additional Health Concerns Assessment Noted Time PHQ-9 Depression Total Score: 7 05/09/20 23 4:15 PM CDT documented as of this encounter Care Teams Director Geothermal Operations Relationship Specialty Start Date End Date Letty Catalan MD [address] [address] PCP - General chart picker 01/13/21 No Ref-Primary, Physician 01/13/21 Concha Klein PA-C [address] [place] [address] Physician Meat Washer Endocrinology, Diabetes, and Metabolism 10/10/22 Eliza Blackman DO [address] [place] [address] Assigned OBGYN Provider 04/14/23 documented as of this encounter
--- OUTSIDE RECORDS SUMMARY | 2024-10-29 10:21 | XMS_ITS | Encounter Summary ---
Author Organization [place] Address [address] [place] [address]. [place] [address] Care Team Providers Care Machine Scallop Cutter Name Role Phone Letty Crowley MD Primary Care Provider + No Ref-Primary, Physician Unavailable [phone] Concha Klein PA-C Unavailable Eliza Blackman DO Unavailable [phone] Encounter Details Date Type Department Care Team (Late st Contact Info) Description 10/10/2024 Medical Correspondence [facility] Information Management [address] [facility] [address] [place] [address] Scan, Non-Provider Social History Tobacco Use Types Packs/Day Years Used Date Smoking Tobacco: Never Smokeless Tobacco: Never Alcohol Use Standard Drinks/Week Comments Not Currently 0 (1 standard drink = 0.6 oz pur e alcohol) PHQ-2 Answer Date Recorded PHQ-2 Score 1 05/09/2023 [place] Depression Scale Answer Date Recorded Last EPDS [...] Info) Description 12/08/2024 8:45 AM CDT Appointment [facility] [place] [address] [place] [address] Kaley Reese MD [address] [place] [address] 12/08/2024 9:15 AM CDT Office Visit [facility] [address] [place] [address] Kaley Reese MD [address] [place] [address] documented as of this encounter Visit Diagnoses Not on filedocumented in this encounter Additional Health Concerns Assessment Noted Time PHQ-9 Depression Total Score: 7 05/09/20 23 4:15 PM CDT documented as of this encounter Care Teams Machine Scallop Cutter Relationship Specialty Start Date End Date Letty Catalan MD [address] [address] PCP - General defensive secondary coach 01/13/21 No Ref-Primary, Physician 01/13/21 Concha Klein PA-C [address] [place] [address] Physician Corporate Accounting Manager Endocrinology, Diabetes, and Metabolism 10/10/22 Eliza Blackman DO [address] [place] [address] Assigned OBGYN Provider 04/14/23 documented as of this encounter
--- OUTSIDE RECORDS SUMMARY | 2024-10-29 10:21 | XMS_ITS | Encounter Summary ---
Author Organization [place] Address [address] [place] [address] Care Team Providers Care China Decorator Name Role Phone Letty Crowley MD Primary Care Provider + No Ref-Primary, Physician Unavailable [phone] Concha Klein PA-C Unavailable Eliza Blackman DO Unavailable [phone] Reason for Referral * Diagnostic Imaging Ultrasound (Routine) - Pending Review Specialty Diagnoses / Procedures Referred By Evans t Referred To Contact Radiology. Diagnoses related condition, antepartum Procedures [facility] US Comprehensive Single Kaley Reese MD [address] [place] [address] Phone: tel: fax: Referral ID Status Reason Start Date Expiration Date V isits Requested Visits Authorized [id number] Pending Review 10/10/2024 10/10/2025 1 1 * Consultation (Routine: Next available opening) - Pending Review Specialty Diagnoses / Procedures Referred By Evans quick Referred To Contact Diagnoses related condition, antepartum Kaley Reese MD [address] [place] [address] Phone: tel: fax: [facility] [place] [address] [facility] [address] [place] [address] Phone: tel: fax: Referral ID Status Reason Start Date Expiration Date V isits Requested Visits Authorized [id number] Pending Review 10/10/2024 10/10/2025 1 1 Question Answer Preferred Location: [facility] [place] Working Due Date: 05/09/2025 US Ordering Instructions: [...] need to be sent to: Kaley Foy, [facility], Comments There is no height or [...] (Latest Contact Info) Description 10/10/2024 Transcribe Orders [facility] [address] [address] Kaley Reese MD [address] [place] [address] related condition, antepartum (Primary Dx) Social History Tobacco Use Types Packs/Day Years Used Date Smoking Tobacco: Never Smokeless Tobacco: Never Alcohol Use Standard Drinks/Week Comments Not Currently 0 (1 standard drink = 0.6 oz pur e alcohol) PHQ-2 Answer Date Recorded PHQ-2 Score 1 05/09/2023 [place] Depression Scale Answer Date Recorded Last EPDS [...] Info) Description 12/08/2024 8:45 AM CDT Appointment [facility] [place] [address] [facility] [address] [place] [address] Kaley Reese MD [address] [place], [place] [address] 12/08/2024 9:15 AM CDT Office Visit [facility] Maternal [facility] [address] [facility] [address] [place] [address] Kaley Reese MD [address] [place], [place] [address] Scheduled Orders Name Type Priority Associated Diagnoses [...] documented as of this encounter Care Teams China Decorator Relationship Specialty Start Date End Date Letty Crowley MD [address] [address] PCP - General nail polish brush machine feeder 01/13/21 No Ref-Primary, Physician 01/13/21 Concha Klein PA-C [address] [place] [address] Physician Diversified Crops Ii Farmworker Endocrinology, Diabetes, and Metabolism 10/10/22 Eliza Blackman DO [address] [address] Assigned OBGYN Provider 04/14/23 documented as of this encounter
--- OUTSIDE RECORDS SUMMARY | 2024-10-29 10:22 | XMS_ITS | Encounter Summary ---
Author Organization [place] Address [address] [place] [address] Care Team Providers Care Cellar Packer Name Role Phone Letty Crowley MD Primary Care Provider + No Ref-Primary, Physician Unavailable [phone] Concha Klein PA-C Unavailable Eliza Blackman DO Unavailable [phone] Cesar Castro MD Unavailable [phone] Concha Klein PA-C Unavailable Encounter Details Date Type Department Care Team (Late st Contact Info) Description 04/09/2023 [facility] [address] [place] [address] Milagros Steward, RN Social History Tobacco Use Types Packs/Day Years Used Date Smoking Tobacco: Never Smokeless Tobacco: Never Alcohol Use Standard Drinks/Week Comments Not Currently 0 (1 standard drink = 0.6 oz pur e alcohol) PHQ-2 Answer Date Recorded PHQ-2 Score 0 03/14/2023 [place] Depression Scale Answer Date Recorded Last EPDS [...] Info) Description 12/08/2024 8:45 AM CDT Appointment [facility] [address] [place] [address] Kaley Reese MD [address] [place], [place] [address] 12/08/2024 9:15 AM CDT Office Visit [facility] [address] [place] [address] Kaley Reese MD [address] [place], [place] [address] documented as of this encounter Visit Diagnoses Not on filedocumented in this encounter Care Teams Cellar Packer Relationship Specialty Start Date End Date Letty Catalan MD [facility] [address] [place] [address] PCP - General knot tier 01/13/21 No Ref-Primary, Physician 01/13/21 Concha Klein PA-C [address] [place], [place] [address] Physician Mailing Clerk Endocrinology, Diabetes, and Metabolism 10/10/22 Eliza Blackman DO [address] [address] Assigned OBGYN Provider 04/14/23 Cesar Castro MD [address] [place] [address] Assigned OBGYN Provider 03/31/23 Concha Klein PA-C [address] [place] [address] Assigned Endocrinology Provider 08/24/23 06/13/24 documented as of this encounter
--- OUTSIDE RECORDS SUMMARY | 2024-10-29 10:22 | XMS_ITS | Encounter Summary ---
Author Organization [facility] Address [address] [place] [address]. [place] [address] Care Team Providers Care Hospice Home Care Coordinator Name Role Phone Letty Crowley MD Primary Care Provider + No Ref-Primary, Physician Unavailable [phone] Concha Klein PA-C Unavailable Eliza Blackman DO Unavailable [phone] Cesar Castro MD Unavailable [phone] Concha Klein PA-C Unavailable Encounter Details Date Type Department Care Team (Late st Contact Info) Description 11/15/2022 MyC Medical Advice [facility] [address] [address] Kristy Renee LPN Social History [...] Info) Description 12/08/2024 8:45 AM CDT Appointment [facility] [place] [address] [place] [address] Kaley Reese MD [address] [place] [address] 12/08/2024 9:15 AM CDT Office Visit [facility] [place] [address] [place] [address] Kaley Reese MD [address] [place] [address] documented as of this encounter Visit Diagnoses Not on filedocumented in this encounter Care Teams Hospice Home Care Coordinator Relationship Specialty Start Date End Date Letty Crowley MD [facility] [address] [place] [address] PCP - General pilates coordinator 01/13/21 No Ref-Primary, Physician 01/13/21 Concha Klein PA-C 500 [place] [address] Physician Planner Scheduler Endocrinology, Diabetes, and Metabolism 10/10/22 Eliza Blackman DO [address] [place] [address] Assigned OBGYN Provider 04/14/23 Cesar Castro MD [address] [place] [address] Assigned OBGYN Provider 03/31/23 Concha Klein PA-C [address] [place] [address] Assigned Endocrinology Provider 08/24/23 06/13/24 documented as of this encounter
--- OUTSIDE RECORDS SUMMARY | 2024-10-29 10:22 | XMS_ITS | Encounter Summary ---
Author Organization formerly [facility] Address [address] [place] [address] Care Team Providers Care Meat Seafood Associate Name Role Phone Unavailable Primary Care Provider Unavailabl e Encounter Details Date Type Department Care Team (Late Contact Info) Description 10/13/20[address] [facility] 380 Endocrinology 3800 [facility] [place] [address] [place] [address] Social History Tobacco Use Types Packs/Day Years [...] Info) Description 11/26/2024 2:[address] [facility] 3800 Endocrinology 3800 [facility] [place] [address] Rachel Knight MD [address] [place] [address] 12/26/2024 1:[address] [facility] 3800 Endocrinology 3800 [facility] [place] [address] Rachel Knight MD [address] [place] [address] 01/28/2025 1:40 PM CDT Telemedicine [place] 3800 Endocrinology 3800 [facility] [place] [address] Rachel Knight MD [facility] [place], [place] [address] documented as of this encounter Visit Diagnoses Not on filedocumented in this encounter
--- OUTSIDE RECORDS SUMMARY | 2024-10-29 10:22 | XMS_ITS | Clinical Summary ---
Author Organization [facility] Address [address] [place] [address] Care Team Providers Care Business Development Intern Name Role Phone Unavailable Primary Care Provider Unavailabl e Source Comments You are receiving this document as you are listed as the primary care provider,follow-up provider, or the patient has been referred to you for consultation.This is in compliance with the Medicare and[facility] Hospital[facility] EHR Incentive Program,which states Providers who transition their patient to another setting of careor provider of care or refers their patient to another provider of care shouldprovide summary care record for each transition of care or referral. [employer] Allergies No known active allergies Medications * [...] Description 10/22/2024 11:00 AM CDT Phone Visit [place] [address] [place] [address] Terrell Pineda. [place] [address] Rachel Knight MD Type 2 diabetes mellitus during , antepartum (Primary Dx) 10/13/2024 E-Visit [place] [address] [place] [address] Terrell Pineda. [place] [address] Mychart, Generic Provider 09/22/2024 11:20 AM PRIMARY GRADE TEACHER Telemedicine [place] [address] [place] [address] Terrell Pineda. [place] [address] Rachel Knight MD Type 2 diabetes mellitus during , antepartum (Primary Dx) 09/10/2024 9:40 AM PRIMARY GRADE TEACHER Telemedicine [place] [address] [place] [address]. [place], [place] [address] Rachel Knight MD Type 2 diabetes mellitus during , antepartum (Primary Dx); Pre-existing type 2 diabetes mellitus during in first trimester 09/08/2024 Telephone [place] [address] [place] [address]. [place], [place] [address] Nurse, [id number] End from Last 3 Months [...] Info) Description 11/26/2024 2:00 PM CDT Telemedicine [place] [address] [place] [address]. [place] [address] Rachel Knight MD [address] [place] [address] 12/26/2024 1:00 PM CDT Telemedicine [place] [address] [place] [address]. [place] [address] Rachel Knight MD [address] [place] [address], [place] [address] 01/28/2025 1:40 PM CDT Telemedicine [facility] 3800 Endocrinology 3800 [place] [address] Rachel Knight MD [address] [place], [place] [address] Health Maintenance Due Date Last Done Comments [...] Most Recently Relevant to Health Maintenance Insurance [facility]
--- OUTSIDE RECORDS SUMMARY | 2024-10-29 10:22 | XMS_ITS | Encounter Summary ---
Author Organization [facility] Address [address] [place] [address] Care Team Providers Care Inspector Screen Printing Name Role Phone Letty Crowley MD Primary Care Provider + No Ref-Primary, Physician Unavailable [phone] Concha Klein PA-C Unavailable Eliza Blackman DO Unavailable [phone] Cesar Castro MD Unavailable [phone] Concha Klein PA-C Unavailable Encounter Details Date Type Department Care Team (Late st Contact Info) Description 2022 MyC Medical Advice [facility] [address] [place] [address] Hernan Carver Social History Tobacco Use [...] Description 12/08/2024 8:45 AM CDT Appointment [facility] [place] [address] [place] [address] Kaley Reese MD 500 [place] [address] 12/08/2024 9:15 AM CDT Office Visit [facility] Maternal Medicine [facility] [address] [place] [address] Kaley Reese MD 500 [place] [address] documented as of this encounter Visit Diagnoses Not on filedocumented in this encounter Care Teams Inspector Screen Printing Relationship Specialty Start Date End Date Letty Crowley MD [address] [address] PCP - General frame polisher 01/13/21 No Ref-Primary, Physician 01/13/21 Concha Klein PA-C [address] [place] [address] Physician Meat Boner Endocrinology, Diabetes, and Metabolism 10/10/22 Eliza Blackman DO [address] [facility] 100 [place] [address] Assigned OBGYN Provider 04/14/23 Cesar Castro MD [address] [place] [address] Assigned OBGYN Provider 03/31/23 Concha Klein PA-C [address] [place] [address] Assigned Endocrinology Provider 08/24/23 06/13/24 documented as of this encounter
--- OUTSIDE RECORDS SUMMARY | 2024-10-29 10:22 | XMS_ITS | Encounter Summary ---
Author Organization [facility] Address [address] [place] [address] Care Team Providers Care Organ Installer Name Role Phone Letty Crowley MD Primary Care Provider + No Ref-Primary, Physician Unavailable Concha Klein PA-C Unavailable Eliza Blackman DO Unavailable [phone] Cesar Castro MD Unavailable [phone] Concha Klein PA-C Unavailable Encounter Details Date Type Department Care Team (Late st Contact Info) Description 03/13/2023 MyC Medical Advice [facility] [place] [address] [facility] [address] [place] [address] Milagros Steward, RN Social History [...] Info) Description 12/08/2024 8:45 AM CDT Appointment [facility] [place] [address] [place] [address] Kaley Reese MD 500 [place] [address] 12/08/2024 9:15 AM CDT Office Visit [facility] Maternal Medicine [facility] [address] [place] [address] Kaley Reese MD 500 [place] [address] documented as of this encounter Visit Diagnoses Not on filedocumented in this encounter Care Teams Organ Installer Relationship Specialty Start Date End Date Letty Crowley MD [address] [address] PCP - General mine safety manager 01/13/21 No Ref-Primary, Physician 01/13/21 Concha Klein PA-C 500 [place], [place] [address] Physician Group Product Manager Endocrinology, Diabetes, and Metabolism 10/10/22 Eliza Blackman DO [address] [address] Assigned OBGYN Provider 04/14/23 Cesar Castro MD [address] [place] [address] Assigned OBGYN Provider 03/31/23 Concha Klein PA-C [address] [place], [place] [address] Assigned Endocrinology Provider 08/24/23 06/13/24 documented as of this encounter
--- OUTSIDE RECORDS SUMMARY | 2024-10-29 10:22 | XMS_ITS | Encounter Summary ---
Author Organization [facility] Address [address] [place] [address] Care Team Providers Care Strapper Operator Name Role Phone Letty Crowley MD Primary Care Provider + No Ref-Primary, Physician Unavailable [phone] Concha Klein PA-C Unavailable Eliza Blackman DO Unavailable [phone] Concha Klein PA-C Unavailable Reason for Visit * Reason Onset Date Comments Symptoms 05/18/2023 Rash by C sectio n scar Encounter Details Date Type Department Care Team (Late st Contact Info) Description 05/18/2023 Telephone [facility] [address] [place] [address] Eliza Blackman DO [address] [place] [address] Symptoms (Rash by C section scar) Social History Tobacco Use Types Packs/Day Years Used Date Smoking Tobacco: Never Smokeless Tobacco: Never Alcohol Use Standard Drinks/Week Comments Not Currently 0 (1 standard drink = 0.6 oz pur e alcohol) PHQ-2 Answer Date Recorded PHQ-2 Score 1 05/09/2023 [place] Depression Scale Answer Date Recorded Last EPDS [...] Kathy Gordillo - 05/18/2023 2:53 PM CDT [facility] Phone Message May a detailed [...] Info) Description 12/08/2024 8:45 AM CDT Appointment [facility] [place] [address] [facility] [address] [place] [address] Kaley Reese MD [address] [place] [address] 12/08/2024 9:15 AM CDT Office Visit [facility] [place] [address] [facility] [address] [place] [address] Kaley Reese MD 500 [place] [address] documented as of this encounter Visit Diagnoses Not on filedocumented in this encounter Additional Health Concerns Assessment Noted Time PHQ-9 Depression Total Score: 7 05/09/20 23 4:15 PM CDT documented as of this encounter Care Teams Strapper Operator Relationship Specialty Start Date End Date Letty Catalan MD [address] [address] PCP - General cryptologic technician operator/analyst 01/13/21 No Ref-Primary, Physician 01/13/21 Concha Klein PA-C [address] [place] [address] Physician Crm Administrator Endocrinology, Diabetes, and Metabolism 10/10/22 Eliza Blackman DO [address] [facility] [address] [place] [address] Assigned OBGYN Provider 04/14/23 Concha Klein PA-C [address] [place] [address] Assigned Endocrinology Provider 08/24/23 06/13/24 documented as of this encounter
--- OUTSIDE RECORDS SUMMARY | 2024-10-29 10:22 | XMS_ITS | Clinical Summary ---
Author Organization [place] Address [address] [place] [address] Care Team Providers Care Yarn Examiner Name Role Phone Letty Crowley MD Primary Care Provider + No Ref-Primary, Physician Unavailable [phone] Concha Klein PA-C Unavailable Eliza Blackman DO Unavailable [phone] Allergies Active Allergy Reactions Criticality Noted Date Comments Cat Dander Itching Low 11/03/2020 Glycerin Rash Low 09/26/2022 Unsure if this is correct- rash from Pantene shampoo Medications cholecalciferol (VITAMIN D3) 25 mcg (1000 units) capsule 3 Active Vit-Fe Fumarate-FA ( 1+1 OR) Active nystatin (MYCOSTATIN) 634719 UNIT/GM external creamIndication s:Yeast infection of the [...] & Plan: Labs today Follow up with speech correction assistant team to help with insulin dose adjustment, by next week. Follow up with me in 1 month (clinic / video / telephone) Previous delivery a ffecting 08/15/2022 2022 03/25/2023 Encounters Date Type Department Care Team Description 10/10/2024 Medical Correspondence [facility] Information Management [address] [place] [address] [address] [place] [address] Scan, Non-Provider 10/10/2024 Transcribe Orders [facility] [address] [place] [address] Kaley Randall MD related condition, antepartum (Primary Dx) 10/09/2024 Medical Correspondence [facility] [address] [place] [address] Scan, Non-Provider from Last 3 Months Immunizations [...] Answer Date Recorded PHQ-2 Score 1 05/09/2023 [place] Depression Scale Answer Date Recorded Last EPDS [...] Info) Description 12/08/2024 8:45 AM CDT Appointment [facility] [address] [facility] [address] [place] [address] Kaley Reese MD 500 [place], [place] [address] 12/08/2024 9:15 AM CDT Office Visit [facility] [address] [facility] [address] [place] [phone] Kaley Reese MD 500 [place], [place] [address] Health Maintenance Due Date Last Done Comments [...] ANTIBODY (EXTERNAL RESULT) Routine 08/15/2022 9:00 AM HOROLOGIST from Last 3 Months or Most Recently [...] MD LAB - BLOOD ORDERABLES Final Result [facility] [address] [facility] Lab (1st floor, no room number) [place] [address], [facility] * (ABNORMAL) Basic metabolic [...] LAB - BLOOD ORDERABLES Final Result LABORATORY [facility] Acute Care Lab [address] [facility] Lab (1st floor, no room number) [place] [address], [facility] * HIV-1 Antibody (External Result) (08/15/2022 9:00 AM HOROLOGIST) HIV 1&2 Antibody (External) Negative Nonreactive EXTERNAL LAB 08/15/2022 9:00 AM HOROLOGIST us Patient Reported LAB - HIM EXTERNAL RESULT Final Result EXTERNAL LAB External Lab from Last 3 Months or Most Recently Relevant to Health Maintenance Insurance [employer] Advance Directives For more information, please contact: [phone] * Full Code (Latest Code Status on [...] patie nt/ legal decision maker Care Teams Yarn Examiner Relationship Specialty Start Date End Date Letty Crowley MD [address] [address] PCP - General fire hydrant mechanic 01/13/21 No Ref-Primary, Physician 01/13/21 Concha Klein PA-C [address] [place] [id number] Physician Automotive Refinish Technician Endocrinology, Diabetes, and Metabolism 10/10/22 Eliza Blackman DO [address] 2078[address] Assigned OBGYN Provider 04/14/23
--- OUTSIDE RECORDS SUMMARY | 2024-10-29 10:22 | XMS_ITS | Encounter Summary ---
Author Organization [facility] Address [address] [place] [address] Care Team Providers Care Hospital Scientist Name Role Phone Unavailable Primary Care Provider Unavailabl e Reason for Referral * Consult/Transfer Care (Routine) - New Request Specialty Diagnoses / Procedures Referred By Evans t Referred To Contact Diagnoses Type 2 diabetes mellitus during , antepartum Rachel Knigth MD [address] [place] [address] Phone: tel: fax: Referral ID Status Reason Start Date Expiration Date V isits Requested Visits Authorized [id number] New Request 09/10/2024 12/10/2025 1 1 Scheduling Instructions Your clinician has recommended an appointment with [facility]. You may call [phone] to schedule your appointment. We suggest you [...] of Care A1c: No results found for: [id number] PRE COOLER Encounter Details Date Type Department Care Team (Late st Contact Info) Description 09/10/2024 9:40 AM CAR PRE COOLER Telemedicine [place] [address] Endocrinology [facility] [place], [place] [address] Rachel Knight MD [address] [place], [place] [phone] Type 2 diabetes mellitus during , antepartum [...] Knight MD - 09/10/2024 9:40 AM CST [facility] Department of Endocrinology, Diabetes and Metabolism Clinic Note Name: Amira Scruggs This visit was conducted via video. Reason for visit: Type 2 diabetes during HPI: Amira Scruggs is a 28 y.o. female referred for type 2 diabetes during . Current gestational age: about 6 weeks, has not had blast furnace blower appointment yet Diabetes diagnosis: 2019 per Amira's [...] are scheduled throughout . Rachel Knight MD Supervisor Grading [facility] PRE COOLER PRE COOLER documented in this encounter Plan of Treatment Upcoming Encounters Date Type Department Care Team (Late st Contact Info) Description 11/26/2024 2:00 PM CDT Telemedicine [place] [address] [place] [address]. [place] [address] Rachel Knight MD [address] [place] [address] 12/26/2024 1:00 PM CDT Telemedicine [place] [address] [place] [address]. [place] [address] [place] [address] [place] [address] 01/28/2025 1:40 PM CDT Telemedicine [place] [address] [place] [address]. [place] [address] Rachel Knight MD [address] [place] [address] Scheduled Referrals Name Type Priority Associated Diagnoses Orde r Schedule Diabetes Education and MNT - Adult/Peds Referral Routine Type 2 diabetes mellitus during , antepartum Ordered: 09/10/2024 documented as of this encounter Visit Diagnoses Diagnosis Type 2 diabetes mellitus during , antepartum- Primary Pre-existing type 2 diabetes mellitus during in first trimester documented in this encounter
--- OUTSIDE RECORDS SUMMARY | 2024-10-29 10:22 | XMS_ITS | Encounter Summary ---
Author Organization [facility] Address [address] [place] [address] Care Team Providers Care Vocational Teacher Name Role Phone Unavailable Primary Care Provider Unavailabl e Encounter Details Date Type Department Care Team (Late st Contact Info) Description 10/22/2024 11:00 AM CDT Phone Visit [place] 098160 Endocrinology [address] [facility] [place], [place] [phone] Rachel Knight MD [address] [place], [place] [phone] Type 2 diabetes mellitus during , antepartum [...] Knight MD - 10/22/2024 11:00 AM CDT [facility] Department of Endocrinology, Diabetes and Metabolism Clinic [...] Metformin 2000 mg daily: stopped during Freestyle Odnaldo CGM data from 10/02-10/15 were reviewed: Average [...] she can schedule an appointment with a parent educator at any time for help with insulin dose adjustment in between our appointments. Rachel Knight MD [facility] [employer] [facility] * Bonnie Galindo RN - 10/22/2024 11:00 [...] Date Type Department Care Team (Late st [facility]) Description 11/26/2024 2:00 PM CDT Telemedicine [place] [address] [place] [address]. [place] [address] Rachel Knight MD [address] [place] [address] 12/26/2024 1:00 PM CDT Telemedicine [place] [address] [place] [address]. [place] [address] Rachel Knight MD [address] [place] [address] 01/28/2025 1:40 PM CDT Telemedicine [place] [address] [place] [address]. [place] [address] Rachel Knight MD [address] [place] [address] Scheduled Orders Name Type Priority Associated Diagnoses [...]
--- OUTSIDE RECORDS SUMMARY | 2024-10-29 10:22 | XMS_ITS | Encounter Summary ---
Author Organization [facility] Address [address] [place] [address] Care Team Providers Care Body And Fender Mechanic Apprentice Name Role Phone Unavailable Primary Care Provider Unavailabl e Encounter Details Date Type Department Care Team (Late st Contact Info) Description 09/22/2024 11:20 AM VOCAL MUSIC INSTRUCTOR Telemedicine [place] [phone] Endocrinology [facility] [place] [address] Rachel Knight MD [address] [place], [place] [id number] Type 2 diabetes mellitus during , antepartum [...] Knight MD - 09/22/2024 11:20 AM CST [facility] Department of Endocrinology, Diabetes and Metabolism Clinic [...] she can schedule an appointment with a nurse educator at [facility] dose [facility] in between our appointments. Rachel Knight MD Conche Loader And Unloader [facility] L MUSIC INSTRUCTOR documented in this encounter Plan of Treatment Upcoming Encounters Date Type Department Care Team (Late st Contact Info) Description 11/26/2024 2:00 PM CDT Telemedicine [place] [address] [place] [address]. [place] [address] Rachel Knight MD [address] [place] [address] 12/26/2024 1:00 PM CDT Telemedicine [place] [address] [place] [address]. [place] [address] Rachel Knight MD [address] [place] [address] 01/28/2025 1:40 PM CDT Telemedicine [place] [address] [place] [address]. [place] [address] Rachel Knight MD [address] [place] [address] documented as of this encounter Visit Diagnoses Diagnosis Type 2 diabetes mellitus during , antepartum- Primary documented in this encounter
--- OUTSIDE RECORDS SUMMARY | 2024-10-29 10:22 | XMS_ITS | Encounter Summary ---
Author Organization [facility] Address [address] [place] [address] Care Team Providers Care Welfare Specialist Name Role Phone Letty Crowley MD Primary Care Provider + No Ref-Primary, Physician Unavailable [phone] Concha Klein PA-C Unavailable Eliza Blackman DO Unavailable [phone] Cesar Castro MD Unavailable [phone] Concha Klein PA-C Unavailable Encounter Details Date Type Department Care Team (Late st Contact Info) Description 03/21/2023 MyC Medical Advice [facility] [address] [address] Shannan Argueta, [facility] Social History Tobacco Use Types Packs/Day Years [...] Info) Description 12/08/2024 8:45 AM CDT Appointment [facility] [address] [place] [phone] Kaley Reese MD [address] [place], [place] [id number] 12/08/2024 9:15 AM CDT Office Visit [facility] [address] [place] [phone] Kaley Reese MD [address] [place], [place] [phone] documented as of this encounter Visit Diagnoses Not on filedocumented in this encounter Care Teams Welfare Specialist Relationship Specialty Start Date End Date Letty Catalan MD [facility] [address] [place] [address] PCP - General driver trainee 01/13/21 No Ref-Primary, Physician 01/13/21 Concha Klein PA-C [address] [place] [address] Physician [employer] Operator Endocrinology, Diabetes, and Metabolism 10/10/22 Eliza Blackman DO [address] MARY KATE [address] [place] [address] Assigned OBGYN Provider 04/14/23 Cesar Castro MD [address] [place]ARY KATE [address] [place] [address] Assigned OBGYN Provider 03/31/23 Concha Klein PA-C [address] [place] [address] Assigned Endocrinology Provider 08/24/23 06/13/24 documented as of this encounter
--- OUTSIDE RECORDS SUMMARY | 2024-10-29 10:22 | XMS_ITS | Clinical Summary ---
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 Catalan 2022 Term 39w 1d 4.27 kg (9 lb 6.6 oz) F CS-Un spec Epidur al N Livin g 8 9 Karin Delivery Location:[facility] ( [facility]OR AND DELIVERY) Last Filed Vital Signs Vital Sign Reading Time Taken Comments Blood Pressure 110/68 07/30/2024 5:43 PM CONSTRUCTION SECRETARY Pulse 80 07/30/2024 5:43 PM CONSTRUCTION SECRETARY Temperature 36.1 C (97 F) 11/06/2023 4:18 PM CDT Respiratory Rate 16 11/06/2023 4:18 PM CDT Oxygen Saturation 97% 02/27/2024 2:3 7 PM CDT Inhaled Oxygen Concentration - - Weight 74.1 kg (163 lb 6.4 oz) 07/30/2024 5:43 PM CONSTRUCTION SECRETARY Height 153.7 cm (5' 0.5) 11/06/2023 4: [...] Procedure Name Priority Date/Time Associated Diagnosis Comments SONG WRITER THIN PREP PAP SCREEN IMAGED Routine 07/01/2021 9:50 AM CONSTRUCTION SECRETARY ANTI HIV 1/2 Routine 06/09/2019 2:58 PM CONSTRUCTION SECRETARY Screen for STD (sexually transmitted disease) ACUTE HEPATITIS PANEL Add On 04/01/2019 10:39 AM CDT Adverse food reaction, initial encounter from Last 3 Months or Most Recently Relevant to Health Maintenance Results * SONG WRITER THIN PREP PAP SCREEN IMAGED (07/01/2021 9:50 AM CONSTRUCTION SECRETARY) Case Report Gynecologic Cytology Report Case: [id number] Authorizing Provider: Letty Pinedo Collected: 07/01/2021 0950 MD Cherise Ordering Location: [facility] Received: 07/04/2021 0841 First Screen: Eliza Hidalgo Rescreen: Indira Oh Specimen: SONG WRITER ThinPrep Vial Screening, Cervical/Vaginal 07/19/2021 12:16 PM CONSTRUCTION SECRETARY [employer] [facility] ENTRAL LABORATORY INTERPRETATION/ RESULT NEGATIVE FOR INTRAEPITHELIAL LESION OR MALIGNANCY (NIL) (none) 07/19/2021 12:16 PM CONSTRUCTION SECRETARY [employer] [facility]-C ENTRAL LABORATORY at 1216 CONSTRUCTION SECRETARY SPECIMEN ADEQUACY Satisfactory for evaluation Endocervical component present 07/19/2021 12:16 PM CONSTRUCTION SECRETARY [facility] HPV REQUEST HPV if ASCUS 07/19/2021 12:16 PM CONSTRUCTION SECRETARY [facility] Last Pap Date 04/28/2020 07/19/2021 12:16 PM CONSTRUCTION SECRETARY [facility] Last Pap Result ASCUS 12:16 PM CONSTRUCTION SECRETARY [facility] Comment:neg hpv Additional Information 07/19/2021 12:16 PM CONSTRUCTION SECRETARY [facility] Comment: Interpreted at [facility] - [address], [place] [address] Automated Review Successful 07/19/2021 12:16 PM CONSTRUCTION SECRETARY [facility] Comment:Specimen processed s uccessfully by automated triage register nurse device, ThinPrep Imaging System, [employer] Note The pap test is a screening technique, not a diagnostic procedure. It is used primarily to screen for squamous cancers and precursor lesions. Published studies have shown that it is subject to both false negative and false positive results. The pap test should not be used as the sole means to diagnose or exclude pre-malignant and malignant lesions. 07/19/2021 12:16 PM CONSTRUCTION SECRETARY [facility] Other (Cervical/Vagina l) 07/01/2021 9:50 AM CONSTRUCTION SECRETARY 07/04/2021 8:41 AM CONSTRUCTION SECRETARY Letty Pinedo MD PATHOLOGY/CYTOLOGY Final Result [facility] [address] [place] [address], [place] * ANTI HIV 1/2 (06/09/2019 2:58 PM CONSTRUCTION SECRETARY) HIV-1/HIV-2 ANTIBODY Non-Reacti ve Non-Reacti ve 06/09/2019 7:57 PM CONSTRUCTION SECRETARY [facility] Comment:HIV-1 p24 and HIV-1/ HIV-2 Ab not detected. Blood BLOOD SPECIMEN / Unknown Venipuncture / Unknown 06/09/2019 2:58 PM CONSTRUCTION SECRETARY 06/09/2019 2:58 PM CONSTRUCTION SECRETARY [employer] SUE SEND OUTS Final Result [facility] [address] [place] [address], * ACUTE HEPATITIS PANEL (04/01/2019 10:39 AM CDT) HEPATITIS C ANTIBODY Non-Reactive Non-Reactive 04/02/2019 1:30 PM CDT [facility] Comment:Antibodies to HCV no t detected; does not exclude the possibility of exposure to HCV. IGM ANTI HAV Non-Reactive Non-Reactive 04/02/20 19 1:30 PM CDT [facility] HBSAG Nonreactive Nonreactive 04/02/2019 1:30 PM CDT [facility] IGM ANTI HBC Non-Reactive Non-Reactive 04/02/20 19 1:30 PM CDT [facility] Blood BLOOD SPECIMEN / Unknown Venipuncture / Unknown 04/01/2019 10:39 AM CDT 04/01/2019 10:39 AM CDT Narrative [facility] - 04/02/2019 1:30 PM CDT Anti-HBc IgM not detected. Does not exclude the possibility of exposure to or infection with HBV. Omar Don MD SEND OUTS Final Result Performing Organization Address City/[facility]/ZIP Co de Phone Number [facility] [address] [place] [address], from Last 3 Months or Most Recently Relevant to Health Maintenance Insurance [facility] [id number] Advance Directives * Full Code (Latest Code Status on File) Date Activated Date Inactivated Comments 05/25/2017 6:51 PM 05/29/2017 8:38 PM Care Teams On Call Relationship Specialty [place] [address] [facility] [place] [address] PCP - General Family Practice 08/29/23
== END 2024-10-29 11:16 | disposition home or self-care (01) ==
PROVIDERS: Emergency Provider Family Medicine
DX: O46.8X1 Other antepartum hemorrhage, first trimester (principal); Z3A.12 12 weeks gestation of pregnancy
CPT/HCPCS: 76801; 99283; 99284

== ENCOUNTER 2024-11-05 13:48 | Outpatient (CLI) | payer BC, MEDICAID, SELFPAY ==
--- NOTE | 2024-11-05 13:45 | CRLHL7_ITS ---
For Patients: As a result of the Century Cures Act, medical imaging exams and procedure reports are released immediately into your electronic medical record. You may view this report before your referring provider. If you have questions, please contact your health care provider. OB ULTRASOUND PELVIS LMP: 07/28/2024. JOANA by LMP: 05/09/2025. GA: 13 w, 4 d. Single. Comparison: US 10/29/2024. INDICATION: Follow-up NANI. TECHNIQUE: Real time forbes scale imaging of the fetus was performed. Transabdominal. CERVIX: Not visualized. POSITIONING: Multiple. PLACENTA: Technique: Transabdominal. PLACENTA POSITION: Posterior. DOPPLER: heart rate: 159 bpm. BIOMETRY: BPD: 2.6 cm. 14 w, 4 d, 82 percent. HC: 9.7 cm. 14 w, 3 d, 74 percent. AC: 7.9 cm. 14 w, 2 d, 81 percent. FL: 1.2 cm. 13 w, 4 d, 43 percent. FL/AC ratio: 15.36 percent. HC/AC ratio: 1.23. EFW: 87 g. Weight: - lbs, 3 oz. age by this US: 14 w, 3 d. JOANA by this US: 05/03/2025. Percentile by JOANA: 62 percent. IMPRESSION: 1. Sonographic gestational age 14 weeks 3 days and sonographic due date 05/03/2025. 2. Subchorionic hemorrhage measures 9.4 x 1.6 x 7.1 cm, previously measuring 8.8 x 1.6 x 7.4 cm. This is likely incidental and of no clinical concern. Sloan Gonsalves M.D. Diagnostic Radiologist [email or web address] SP/Dictated by: Sloan Gonsalves MD @ 11/06/2024 8:15:00 PM (Electronically Signed)
== END 2024-11-05 13:49 | disposition home or self-care (01) ==
PROVIDERS: Visit Provider Obstetrics & Gynecology
DX: O20.9 Hemorrhage in early pregnancy, unspecified (principal); Z3A.13 13 weeks gestation of pregnancy
CPT/HCPCS: 76816

== ENCOUNTER 2025-01-31 21:52 | Outpatient (CLI) | payer MEDICAID, SELFPAY ==
[2025-01-31 22:19] VITALS: BP 100/51; PULSE 67; PULSE 73; TEMP 36.9; O2SAT 100
--- NOTE | 2025-01-31 23:08 | CRLHL7_ITS ---
For Patients: As a result of the Century Cures Act, medical imaging exams and procedure reports are released immediately into your electronic medical record. You may view this report before your referring provider. If you have questions, please contact your health care provider. INDICATION: Patient fell. Evaluate well-being and for placental abruption. TECHNIQUE: Ultrasound OB pelvis transabdominal. Real-time forbes-scale imaging of the fetus was performed without stress testing. COMPARISON: 12/17/2024. FINDINGS: heart rate: Regular, 150 bpm. position: Vertex. Amniotic fluid volume single deepest pocket 7.6 cm, 2/2. motion 2/2. tone 2/2. breathing movements 2/2. Umbilical artery S/D ratio: Not measured. Placenta: Unremarkable. No evidence of abruption. Cervix: 3.7 cm. Other: Incidentally noted nuchal cord visualized around the neck during the exam. Prior anterior subchorionic hemorrhage not visualized on today`s exam. IMPRESSION: 1. Single viable intrauterine with a biophysical profile 8/8. 2. Incidentally noted nuchal cord visualized around the neck during the exam. 3. Apparent interval resolution of previously demonstrated anterior subchorionic hemorrhage. Dictated by Sloan Acuna MD @ 02/01/2025 12:53:03 AM (Electronically Signed)
[2025-01-31 23:20] LABS: Appearance Urine Clear (Clear)
--- NOTE | 2025-02-04 17:38 | PC.OBNST ---
NST Note NST Note Start: 01/31/25 22:03 Freq: ONCE Status: Discharge Protocol: Document 02/01/25 00:38 ALZ (Rec: 02/01/25 00:41 ALZ [id number]) NST Note 4 Para (# of births) 2 EDC 05/09/25 Gestational Age In 26 Weeks & 1 Days Weeks & Days High Risk Factors Diabetes - Preexisting Type II Insulin Patient Presented Observation after an injury with Complaint(s) of If Observation after Fell, chair she was sitting in broke. Pt having RLQ an injury, describe pain and tenderness Reactive Yes Appropriate for Yes Gestational Age JUNIOR Ravi Date 02/01/25 Reactive Yes Appropriate for Yes Gestational Age JUNIOR Finch Date 02/01/25 OB NST charge Yes Complete NST Note Yes via Write Note The provider's electronic signature indicates the NST is reactive/appropriate for gestational age. *Note to provider: If an addendum is required, open the patient's chart and click on the note under the Nurse/Allied Health tab.
== END 2025-02-01 00:37 | disposition home or self-care (01) ==
LOC: OB OUT 21:52 → OB 21:55
PROVIDERS: Absent Provider Obstetrics & Gynecology; Visit Provider Obstetrics & Gynecology
DX: O26.892 Other specified pregnancy related conditions, second trimester (principal); R10.31 Right lower quadrant pain; O24.912 Unspecified diabetes mellitus in pregnancy, second trimester; W08.XXXA Fall from other furniture, initial encounter; Z3A.26 26 weeks gestation of pregnancy
CPT/HCPCS: 59025; 76819; 81003; G0463

== ENCOUNTER 2025-02-17 07:21 | Outpatient (CLI) | payer MEDICAID, SELFPAY ==
--- NOTE | 2025-02-17 07:15 | CRLHL7_ITS ---
For Patients: As a result of the Century Cures Act, medical imaging exams and procedure reports are released immediately into your electronic medical record. You may view this report before your referring provider. If you have questions, please contact your health care provider. OB ULTRASOUND JOANA by US: 05/09/2025. GA: 28 w, 3 d. INDICATION: Type II diabetes mellitus in . TECHNIQUE: Real time forbes scale imaging of the fetus was performed. Evaluate anatomy. Transabdominal and Transvaginal. position: Vertex. Cervix: Visualized. Technique: Transabdominal. Amniotic Fluid: 6.6 cm SDP (greater than/equal to: 2- less than 8 cm). Placenta: Posterior. Technique: Transabdominal. Heart Rate: 142 bpm. BIOMETRY BPD: 7.7 cm. 30 w, 5 d, 94.7 percent. HC: 28.5 cm. 31 w, 2 d, 92.4 percent. AC: 26.0 cm. 30 w, 1 d, 88.9 percent. FL: 4.9 cm. 26 w, 4 d, 3.0 percent. FL/AC ratio: 18.9 percent. HC/AC ratio: 1.1. heart rate: 142 bpm. EFW: 1346 grams, 2 lb 15 oz. Age by this US: 29 weeks 5 days. JOANA by this ultrasound 04/30/2025. Percentile by JOANA: 65.5. IMPRESSION: 1. Single live intrauterine gestation at 29 weeks 4 days JOANA is 04/30/2025. Gestational age by clinical dates is 28 weeks 3 days with JOANA of 05/09/2025. 2. Abdominal circumference 89th percentile. Femur length is at the 3rd percent. 3. Estimated weight 1346 grams which lies at the 66th percentile. Nat Merida M.D. Diagnostic/Breast Radiologist [email or web address] SITA/stephanie / DW/Dictated by: Nat Merida MD @ 02/21/2025 9:15:00 AM (Electronically Signed)
== END 2025-02-17 07:22 | disposition home or self-care (01) ==
PROVIDERS: Visit Provider Obstetrics & Gynecology
DX: O24.119 Pre-existing type 2 diabetes mellitus, in pregnancy, unspecified trimester (principal); Z3A.28 28 weeks gestation of pregnancy
CPT/HCPCS: 76816; 86592

== ENCOUNTER 2025-02-17 08:50 | Outpatient (CLI) | payer MEDICAID, SELFPAY | END 2025-02-17 08:51 | disposition home or self-care (01) | LOC: NFLDREF 02-19 14:26 | PROVIDERS: Visit Provider Obstetrics & Gynecology | DX: O24.119 Pre-existing type 2 diabetes mellitus, in pregnancy, unspecified trimester (principal); Z3A.28 28 weeks gestation of pregnancy | CPT/HCPCS: 86592 ==

== ENCOUNTER 2025-03-16 13:39 | Outpatient (CLI) | payer BC, SELFPAY ==
--- NOTE | 2025-03-16 13:45 | CRLHL7_ITS ---
For Patients: As a result of the Century Cures Act, medical imaging exams and procedure reports are released immediately into your electronic medical record. You may view this report before your referring provider. If you have questions, please contact your health care provider. OB ULTRASOUND BIOPHYSICAL PROFILE, 03/16/2025 CLINICAL HISTORY: Type 2 diabetes. COMPARISON: 03/16/2025, 02/17/2025, 01/31/2025. TECHNIQUE: Real time forbes scale imaging of the fetus was performed. Transabdominal and transvaginal imaging performed. FINDINGS: JOANA by LMP/US: 05/09/2025. GA: 32 weeks 2 days. Gestation: Single. Cervix: Not visualized. Positioning: Vertex. Amniotic Fluid: 5.6 cm SDP. BIOPHYSICAL PROFILE Gross Body Movements: 2 Tone: 2 Respiratory Activity: 2 Amniotic Fluid: 2 Total Score: 8 Placenta: Technique: TA. Placenta Position: Fundal. Dopplers: Heart Rate: 150 bpm. BIOMETRY BPD: 8.4 cm, 33 weeks 6 days. 85% HC: 31.6 cm, 35 weeks 3 days. 90% AC: 32.6 cm, 36 weeks 4 days. >97% FL: 5.7 cm, 29 weeks 5 days. <3% FL/AC Ratio: 17.38% HC/AC Ratio: 0.97. EFW: 2426 grams, 5 lb, 6 oz. Age by this US: 33 weeks 6 days. JOANA by this US: 04/28/2025. Percentile by JOANA: 95% IMPRESSION: Sloan Gonsalves M.D. Diagnostic Radiologist [email or web address] Transcribed: 3:39 pm DW/Dictated by: Sloan Gonsalves MD @ 03/16/2025 3:29:00 PM (Electronically Signed)
== END 2025-03-16 13:40 | disposition home or self-care (01) ==
LOC: US 13:39
PROVIDERS: Visit Provider Obstetrics & Gynecology
DX: O24.113 Pre-existing type 2 diabetes mellitus, in pregnancy, third trimester (principal); Z3A.32 32 weeks gestation of pregnancy
CPT/HCPCS: 59025; 76815; 76816; 76819; 81003; 81513; 84112; 87481; 87661; G0463